=== PATIENT | female | born 1935 | race Caucasian/White ===

== ENCOUNTER 2019-04-18 00:18 | Emergency (ER) | payer MEDICARE, BC ==
[~2019-04-18] VITALS: Ht 165.1 cm; Wt 81.8 kg
[2019-04-18 00:20] VITALS: Ht 165.1 cm; Wt 81.8 kg
[2019-04-18] MEDS ORDERED: LIPITOR40 MG PO (00:30)
[2019-04-18] MEDS ORDERED: LASIX40 MG PO (00:31)
[2019-04-18] MEDS ORDERED: PROZAC20 MG PO (00:31)
[2019-04-18] MEDS ORDERED: GLUCOTROL 5 MG T5 MG PO (00:32)
[2019-04-18] MEDS ORDERED: FUROSEMIDE20 MG PO (00:32)
[2019-04-18] MEDS ORDERED: ISOSORBIDE MONO30 M1 PO (00:32)
[2019-04-18] MEDS ORDERED: SINGULAIR10 MG PO (00:33)
[2019-04-18] MEDS ORDERED: LEVO-T88 MCG PO (00:33)
[2019-04-18] MEDS ORDERED: FLOMAX0.4 MG PO (00:33)
[2019-04-18] MEDS ORDERED: K-TAB10 MEQ PO (00:34)
[2019-04-18] MEDS ORDERED: COUMADIN6 MG (00:34)
[2019-04-18] MEDS ORDERED: PROTONIX40 MG PO (00:34)
[2019-04-18] MEDS ORDERED: GABAPENTIN100 MG PO (00:35)
[2019-04-18 00:59] LABS: HEMATOCRIT 34.7 % (36.0-48.0); LYMPHOCYTES 30.4 % (15-50); MCH 31.6 pg (26.0-34.0); MCHC 34.6 g/dL (31.0-37.0); MCV 91.3 fL (80.0-100.0); MEAN PLATELET VOLUME 9.9 fL (7.4-10.4); NEUTROPHILS 60.4 % (40-80); PLATELET COUNT 183 10x3/uL (130-400); RDW 12.8 % (11.5-14.5); WBC 3.9 10x3/uL (4.8-10.8)
[2019-04-18 01:08] LABS: ALBUMIN 3.5 g/dL (3.4-5.0); ANION GAP 13.1 mmol/L (8-16); BILIRUBIN - TOTAL 0.54 mg/dL (0.2-1.3); CALCIUM 8.8 mg/dL (8.5-10.1); CARBON DIOXIDE 31.5 mmol/L (21.0-32.0); CREATININE - SERUM 0.8 mg/dL (0.6-1.3); POTASSIUM - SERUM 3.6 mmol/L (3.5-5.1); PROTEIN - SERUM 6.8 g/dL (6.4-8.2)
[2019-04-18 01:14] LABS: APPEARANCE HAZY (CLEAR); BILIRUBIN NEGATIVE (NEGATIVE); COLOR YELLOW (YELLOW); GLUCOSE NEGATIVE (NEGATIVE); KETONE NEGATIVE (NEGATIVE); NITRITE POSITIVE (NEGATIVE); PROTEIN NEGATIVE (NEGATIVE); SPECIFIC GRAVITY 1.015 (1.005-1.020)
[2019-04-18 01:17] LABS: INR 2.16 (0.85-1.17); PROTIME 23.4 SECONDS (11.6-15.0)
[2019-04-18 01:21] LABS: BACTERIA MANY /hpf (NONE SEEN); EPITHELIAL CELLS 0-5 /hpf (0-5); RED CELLS - URINE RARE /hpf (0-5)
[2019-04-18] MEDS ORDERED: CIPRO500 MG PO (01:44)
[2019-04-18 02:31] VITALS: BP 137/50
== END 2019-04-18 02:30 | disposition home or self-care (01) ==
LOC: D.ER 00:18
PROVIDERS: Family Medicine
DX: N39.0 Urinary tract infection, site not specified (principal); S00.93XA Contusion of unspecified part of head, initial encounter; W06.XXXA Fall from bed, initial encounter; Y93.89 Activity, other specified; Y92.092 Bedroom in other non-institutional residence as the place of occurrence of the external cause

== ENCOUNTER 2019-08-30 16:56 | Inpatient (IN) | payer MEDICARE, BC ==
[~2019-08-30] VITALS: Ht 165.1 cm; Wt 74.8 kg
[~2019-08-30 16:56] MED LIST: CIPRO500 MG PO; COUMADIN6 MG; FLOMAX0.4 MG PO; FUROSEMIDE20 MG PO; GABAPENTIN100 MG PO; GLUCOTROL 5 MG T5 MG PO; ISOSORBIDE MONO30 M1 PO; K-TAB10 MEQ PO; LASIX40 MG PO; LEVO-T88 MCG PO; LIPITOR40 MG PO; PROTONIX40 MG PO; PROZAC20 MG PO; SINGULAIR10 MG PO
--- NOTE | 2019-08-30 18:31 | NUR ---
PT'S FAMILY HAS BECOME INCREASINGLY AGITATED SINCE THEY ARRIVED TO ED. PT'S FAMILY AT THE BEDSIDE WHEN TREATING PROVIDER RELAYED THAT PT WOULD LIKELY BE DISCHARGED. PT'S FAMILY NOW DEMANDING THAT PT BE ADMITTED THEY DO NOT WANT HER TO RETURN TO THE ASSISTED LIVING FACILITY WHERE SHE LIVES. PT DISPLEASED THAT SHE WAS GIVEN PO PAIN MEDICATION INSTEAD OF IV PAIN MEDICATION. FAMILY PRESENT AT BEDSIDE INSISTED THAT PT NOT BE GIVEN IV PAIN MEDICATION WHEN OFFERED BY THIS NURSE AND TREATING PROVIDER.
[2019-08-30 18:52] VITALS: BP 162/80
--- NOTE | 2019-08-30 19:02 | NUR ---
HAND OFF REPORT GIVEN TO ADDIS DAILY
[2019-08-30 19:39] VITALS: BP 168/76
[2019-08-30 20:32] VITALS: BP 163/73
--- NOTE | 2019-08-30 22:00 | NUR ---
PT ARRIVED TO THE FLOOR ALERT AND ORIENTED. PT STATES A LOT OF PAIN. WILL CALL TECHNICIAN AUTOMATED EQUIPMENT DR. YOUNGER SITE RT FA DRESSING CLEAN DRY AND INTACT. NO SIGNS OF INFECTION. LUNG SOUNDS CLEAR. BOWEL SOUNDS PRESENT. PT STATES SHE IS BLIND. HARD OF HEARING. NO LOWER LEG SWELLING PRESENT. WILL CONTINUE PLAN OF CARE. CALL LIGHT IN REACH. BED LOWERED AND LOCKED. BED RAILS UPX2. PHILIPPE ALARM ON.
[2019-08-30] MEDS ORDERED: BAYER CHEWABLE81 MG PO (22:55)
[2019-08-30] MEDS ORDERED: COLACE100 MG PO (22:56)
[2019-08-30] MEDS ORDERED: PROZAC40 MG PO (22:57)
[2019-08-30] MEDS ORDERED: GABAPENTIN100 MG PO (22:59)
[2019-08-30] MEDS ORDERED: SYNTHROID75 MCG PO (23:02)
[2019-08-30] MEDS ORDERED: VITAMIN D31000 UNIT PO (23:04)
[2019-08-30] MEDS ORDERED: MIRALAX17 GM PO (23:05)
[2019-08-30] MEDS ORDERED: CARAFATE1 G PO (23:06)
[2019-08-30 23:11] VITALS: BP 172/72; BMI 27.5
--- NOTE | 2019-08-31 04:14 | NUR ---
I have reviewed this patient and I concur with the Shift Assessment completed by the Licensed Practical Nurse today this shift.
[2019-08-31 05:06] VITALS: BP 129/65
[2019-08-31 06:36] LABS: BASOPHILS 0 % (0-2); EOSINOPHILS 0.3 % (0-7); HEMATOCRIT 31.5 % (36.0-48.0); HEMOGLOBIN 10.5 g/dL (12-16); IMMATURE GRANULOCYTES 7.1 % (0-5); LYMPHOCYTES 9.5 % (15-50); MCH 30.9 pg (26.0-34.0); MCHC 33.3 g/dL (31.0-37.0); MCV 92.6 fL (80.0-100.0); MEAN PLATELET VOLUME 10.5 fL (7.4-10.4); MONOCYTES 8.5 % (2-11); NEUTROPHILS 74.6 % (40-80); PLATELET COUNT 182 10x3/uL (130-400); RDW 12.6 % (11.5-14.5); WBC 6.6 10x3/uL (4.8-10.8)
[2019-08-31 06:45] LABS: APTT 27.6 SECONDS (22.8-39.4); INR 1.08 (0.85-1.17); PROTIME 13.5 SECONDS (11.6-15.0)
[2019-08-31 07:01] LABS: ANION GAP 11.5 mmol/L (8-16); BILIRUBIN - TOTAL 0.44 mg/dL (0.2-1.3); CALCIUM 8.4 mg/dL (8.5-10.1); CARBON DIOXIDE 30.7 mmol/L (21.0-32.0); CREATININE - SERUM 0.8 mg/dL (0.6-1.3); MAGNESIUM - SERUM 1.4 mg/dL (1.8-2.4); PHOSPHOROUS 3.2 mg/dL (2.5-4.9); POTASSIUM - SERUM 3.2 mmol/L (3.5-5.1); PROTEIN - SERUM 6.2 g/dL (6.4-8.2)
[2019-08-31 07:53] VITALS: BP 132/62
--- NOTE | 2019-08-31 07:57 | NUR ---
PT RESTING IN BED. AAOX4. "LEGALLY BLIND" ICE TO L ARM. NO S/S OF ACUTE DISTRESS. CL IN PLACE DENIES ANY NEEDS.
--- NOTE | 2019-08-31 12:04 | NUR ---
PT CO OF NUMB/TINGLING TO LUE. PT ABLE TO MOVE FINGER. GOOD RADIAL PULSE. "I FEEL PRESSURE BUT NO FEELING" MOANS WHEN MOVED. CALLED DR LOZANO. TO FOR AP LATERAL CERVICAL SPINE AND AP LATERAL L ELBOW STAT.
[2019-08-31 12:23] VITALS: BP 97/55
[2019-08-31 13:30] LABS: APPEARANCE CLEAR (CLEAR); BILIRUBIN NEGATIVE (NEGATIVE); COLOR YELLOW (YELLOW); GLUCOSE 100 mg/dL (NEGATIVE); KETONE NEGATIVE (NEGATIVE); NITRITE NEGATIVE (NEGATIVE); PROTEIN NEGATIVE (NEGATIVE); SPECIFIC GRAVITY 1.015 (1.005-1.020); UROBILINOGEN NORMAL (NORMAL)
[2019-08-31 14:46] VITALS: Ht 165.1 cm; Wt 74.8 kg
--- NOTE | 2019-08-31 15:00 | NUR ---
Rehab Note- Acute Inpatient Rehab prescreen order received. The patient has pending tests and a NeuroSurgeon consult pending- will need to be done prior to acute inpatient rehab admit. The patient is a good inpatient acute rehab candisite when medically stable and ready for discharge from the acute hospital. Spoke with MAX Olivo. Will continue to follow at this time. Thank you for this referral! Evon Calvert RN Clinical Liaison, [facility] Rehab
[2019-08-31 17:01] VITALS: BP 111/57
--- NOTE | 2019-08-31 19:00 | NUR ---
BEDSIDE REPORT RECEIVED AND CARE OF PT ASSUMED. PT LYING IN MID BLAKELY'S POSITION WITH EYES CLOSED. LEFT ARM IN IMMOBILIZER. IV TO RIGHT FA PATENT WITH NS INFUSING AT 50 ML/HR. PREWICK EXTERNAL CATHETER IN USE. WILL MONITOR FOR NEEDS.
[2019-08-31 20:00] VITALS: BP 105/50
--- NOTE | 2019-08-31 20:42 | NUR ---
HS MEDICATIONS GIVEN. FSBS 175 REQUIRING COVERAGE WITH 2 UNITS OF INSULIN PER SLIDING SCALE. WILL CONTINUE TO MONITOR FOR NEEDS.
--- NOTE | 2019-08-31 23:21 | NUR ---
GAVE 2 ICE [address]ACKS PER REQUEST TO PL[address] AROUND LEFT SHOULDER AND UPPER ARM FOR PAIN.
[2019-09-01] VITALS: BP 132/63
[2019-09-01 04:00] VITALS: BP 137/57
[2019-09-01 06:00] LABS: BASOPHILS 0 % (0-2); EOSINOPHILS 0.5 % (0-7); HEMATOCRIT 30.5 % (36.0-48.0); HEMOGLOBIN 9.9 g/dL (12-16); IMMATURE GRANULOCYTES 5.6 % (0-5); MCH 30.6 pg (26.0-34.0); MCHC 32.5 g/dL (31.0-37.0); MCV 94.1 fL (80.0-100.0); MEAN PLATELET VOLUME 10.3 fL (7.4-10.4); MONOCYTES 11.1 % (2-11); NEUTROPHILS 59.8 % (40-80); PLATELET COUNT 152 10x3/uL (130-400); RBC 3.24 10x6/uL (4.00-5.40)
[2019-09-01 06:27] LABS: ALKALINE PHOSPHATASE 109 U/L (46-116); ALT (SGPT) 15 U/L (10-68); BILIRUBIN - TOTAL 0.51 mg/dL (0.2-1.3); CALCIUM 8.4 mg/dL (8.5-10.1); CARBON DIOXIDE 29.3 mmol/L (21.0-32.0); CHLORIDE - SERUM 105 mmol/L (98-107); CREATININE - SERUM 0.6 mg/dL (0.6-1.3); MAGNESIUM - SERUM 1.7 mg/dL (1.8-2.4); PHOSPHOROUS 3.6 mg/dL (2.5-4.9); PROTEIN - SERUM 5.8 g/dL (6.4-8.2); SODIUM 142 mmol/L (136-145); UREA NITROGEN 15 mg/dL (7-18); eGFR NON AFRICAN AMERICAN > 90 mL/min (90-120)
[2019-09-01 06:28] LABS: CALC OSMOLALITY 283 mosm/kg (275-300); GLUCOSE 100 mg/dL (74-106); POTASSIUM - SERUM 4.2 mmol/L (3.5-5.1)
[2019-09-01 07:08] LABS: INR 1.43 (0.85-1.17); PROTIME 16.9 SECONDS (11.6-15.0)
--- NOTE | 2019-09-01 07:26 | NUR ---
BEDSIDE REPORT RECIEVED. ASSUMED CARE. PATIENT IN BED WITH IV INTACT. SHOULDER IMMOBILIZER ON. NO COMPLAINTS OR SIGNS OF DISTRESS. CALL LIGHT WITHIN REACH.
[2019-09-01 08:15] VITALS: BP 144/53
--- NOTE | 2019-09-01 10:52 | NUR ---
PATIENT IN BED WITH IV INTACT. NO COMPLAINTS OR SIGNS OF DISTRESS. EYES CLOSED RESTING QUIETLY. CALL LIGHT WITHIN REACH.
--- NOTE | 2019-09-01 13:08 | NUR ---
PATIENT IN BED WITH IV INTACT. NO COMPLAINTS OR SIGNS OF DISTRESS. ATE 1/2 OF LUNCH TRAY. CALL LIGHT WITHIN REACH.
--- NOTE | 2019-09-01 13:56 | NUR ---
PATIENT COMPLAINING OF PAIN IN ELBOW. STATED SHE FEELS LIKE THERE IS A VICE ON IT AND THAT IS WHAT IT FELT LIKE WHEN HER HAD HIS HEART ATTACK SO SHE IS AFRAID THAT IT IS HER HEART. NOTIFIED EDMOND ESPINO AT THIS TIME. NEW ORDERS RECIEVED. VS BEING TAKEN BY WHIP OPERATOR.
[2019-09-01 13:57] LABS: % SATURATION 21 % (15-55); IRON 46 ug/dl (35-150); TOTAL IRON BIND CAPACITY 216 ug/dl (260-445); UNSAT IRON BIND CAPACITY 170 ug/dl (150-375)
--- NOTE | 2019-09-01 14:22 | NUR ---
PATIENT VS WNL. PATIENT IN BED WITH EYES CLOSED AT THIS TIME RESTING QUIETLY. NO COMPLAINTS OR SIGNS OF DISTRESS. CALL LIGHT WITHIN REACH.
--- NOTE | 2019-09-01 14:42 | NUR ---
CALLED PATIENTS DAUGHTER PER REQUEST AND LET HER KNOW THAT PATIENT WAS IN PAIN AND THINKING SHE WAS HAVING A HEART ATTACK AT THIS TIME. DAUGHTER VERBALIZED UNDERSTANDING. STATED SHE WAS GOING TO BE UP HERE IN A BIT. EXPLAINED TO PATIENT. PATIENT VERBALIZED UNDERSTANDING.
[2019-09-01 15:30] LABS: CREATINE KINASE 63 UL (21-215)
[2019-09-01 15:31] LABS: TROPONIN-I < 0.017 ng/mL (0.000-0.060)
[2019-09-01 16:05] VITALS: BP 104/56
--- NOTE | 2019-09-01 16:06 | NUR ---
OT NOTE: PT COMPLETED LUE FINGER FLEXION AND OPPOSITION. THANK YOU,PARISH GUIDRY
--- NOTE | 2019-09-01 16:30 | NUR ---
PATIENT IN BED WITH IV INTACT. NO COMPLAINTS OR SIGNS OF DISTRESS. FAMILY AT BEDSIDE. CALL LIGHT WITHIN REACH.
--- NOTE | 2019-09-01 18:10 | NUR ---
PATIENT IN BED WITH EYES CLOSED RESTING QUIETLY. IV INTACT. NO COMPLAINTS, CALL LIGHT WITHIN REACH.
--- NOTE | 2019-09-01 18:26 | NUR ---
ASSISTED PATIENT TO BR AND BACK TO BED. HAD BM. NO COMPLAINTS AT THIS TIME IV INTACT. CALL LIGHT WITHIN REACH. BSCDS ON AND WORKING.
--- NOTE | 2019-09-01 19:00 | NUR ---
BEDSIDE REPORT RECEIVED AND CARE OF PT ASSUMED. PT UPSET THAT MD DID NOT TELL HER THAT HE DIDN'T WANT HER TO WEAR IMMOBILIZER ON LEFT ARM ANY LONGER. IV TO RIGHT WRIST PATENT WITH NS INFUSING AT 50 ML/HR. PUREWICK EXTERNAL CATHETER IN USE. WILL MONITOR FOR NEEDS.
--- NOTE | 2019-09-01 19:15 | NUR ---
REPOSITIONED PT FOR COMFORT; NORCO GIVEN FOR PAIN, AND ICE PACK PLACED ON LEFT ARM.
[2019-09-01 20:00] VITALS: BP 148/64
[2019-09-01 20:00] LABS: CKMB 0.7 U/L (0.0-3.6); CREATINE KINASE 64 UL (21-215)
[2019-09-01 20:01] LABS: TROPONIN-I < 0.017 ng/mL (0.000-0.060)
--- NOTE | 2019-09-01 20:56 | NUR ---
HS MEDICATIONS GIVEN. FSBS 151 THIS CHECK REQUIRING NO COVERAGE PER SLIDING SCALE.
--- NOTE | 2019-09-01 23:14 | NUR ---
PT BATHED AND ALL LINENS AND GOWN CHANGED. NEW PUREWICK EXTERNAL CATHETER PLACE. PT POSITIONED FOR COMFORT AND NEW ICE PACK PLACED ON LEFT UPPER ARM.
[2019-09-02] VITALS: BP 151/74
[2019-09-02 04:00] VITALS: BP 148/67
[2019-09-02 06:15] LABS: BASOPHILS 0 % (0-2); EOSINOPHILS 0.2 % (0-7); HEMOGLOBIN 9.8 g/dL (12-16); IMMATURE GRANULOCYTES 9.3 % (0-5); LYMPHOCYTES 19.8 % (15-50); MCH 30.8 pg (26.0-34.0); MCHC 32.7 g/dL (31.0-37.0); MCV 94.3 fL (80.0-100.0); MEAN PLATELET VOLUME 10.3 fL (7.4-10.4); MONOCYTES 11.7 % (2-11); PLATELET COUNT 161 10x3/uL (130-400); RBC 3.18 10x6/uL (4.00-5.40); RDW 12.6 % (11.5-14.5); WBC 4.1 10x3/uL (4.8-10.8)
[2019-09-02 06:33] LABS: INR 1.59 (0.85-1.17); PROTIME 18.4 SECONDS (11.6-15.0)
[2019-09-02 06:41] LABS: ALBUMIN 2.8 g/dL (3.4-5.0); ALKALINE PHOSPHATASE 103 U/L (46-116); ALT (SGPT) 12 U/L (10-68); BILIRUBIN - TOTAL 0.65 mg/dL (0.2-1.3); CALC OSMOLALITY 278 mosm/kg (275-300); CALCIUM 8.5 mg/dL (8.5-10.1); CARBON DIOXIDE 31.1 mmol/L (21.0-32.0); CHLORIDE - SERUM 103 mmol/L (98-107); CKMB 0.8 U/L (0.0-3.6); CREATINE KINASE 61 UL (21-215); CREATININE - SERUM 0.7 mg/dL (0.6-1.3); GLUCOSE 119 mg/dL (74-106); MAGNESIUM - SERUM 1.7 mg/dL (1.8-2.4); PHOSPHOROUS 3.5 mg/dL (2.5-4.9); POTASSIUM - SERUM 3.9 mmol/L (3.5-5.1); PROTEIN - SERUM 5.9 g/dL (6.4-8.2); SODIUM 139 mmol/L (136-145); UREA NITROGEN 12 mg/dL (7-18); eGFR NON AFRICAN AMERICAN 84 mL/min (90-120)
[2019-09-02 06:42] LABS: TROPONIN-I < 0.017 ng/mL (0.000-0.060)
--- NOTE | 2019-09-02 08:00 | NUR ---
ASSESSMENT PER FLOW SHEET. PT IS WITHOUT DISTRESS.FALL PREVENTION IN PLACE WITH PHILIPPE MAT.DOOR OPEN TO MONITOR.
[2019-09-02 09:18] VITALS: BP 127/64
[2019-09-02 13:33] VITALS: BP 108/45
[2019-09-02 18:07] VITALS: BP 131/65
--- NOTE | 2019-09-02 18:22 | NUR ---
IV MORE TENDER,DCD WITH CATH TIP INTACT.PT DECLINES IV,SAYS SHE DOESNT NEED IT. PT WITHOUT CHANGE.CONT PLAN OF CARE
--- NOTE | 2019-09-02 19:00 | NUR ---
BEDSIDE REPORT RECEIVED AND CARE OF PT ASSUMED. PT LYING IN MID BLAKELY'S POSITION WITH EYES CLOSED. LEFT ARM IN SLING. PUREWICK EXTERNAL CATHETER IN USE. WILL MONITOR FOR NEEDS.
--- NOTE | 2019-09-02 20:45 | NUR ---
HS MEDICATIONS GIVEN TO INCLUDE NORCO FOR PAIN. FSBS 145 THIS CHECK REQUIRING NO COVERAGE PER SLIDING SCALE.
[2019-09-02 21:04] VITALS: BP 119/62
--- NOTE | 2019-09-02 21:45 | NUR ---
RE-POSITIONED PT AND ADJUSTED SLING FOR COMFORT.
[2019-09-03 04:15] VITALS: BP 144/55
[2019-09-03 05:24] LABS: BASOPHILS 0 % (0-2); EOSINOPHILS 0.3 % (0-7); HEMATOCRIT 30.1 % (36.0-48.0); HEMOGLOBIN 9.9 g/dL (12-16); IMMATURE GRANULOCYTES 4.3 % (0-5); LYMPHOCYTES 23.9 % (15-50); MCH 30.7 pg (26.0-34.0); MCHC 32.9 g/dL (31.0-37.0); MCV 93.5 fL (80.0-100.0); MEAN PLATELET VOLUME 9.9 fL (7.4-10.4); MONOCYTES 11.4 % (2-11); NEUTROPHILS 60.1 % (40-80); PLATELET COUNT 162 10x3/uL (130-400); RBC 3.22 10x6/uL (4.00-5.40); RDW 12.6 % (11.5-14.5); WBC 3.5 10x3/uL (4.8-10.8)
[2019-09-03 05:34] LABS: INR 1.69 (0.85-1.17); PROTIME 19.3 SECONDS (11.6-15.0)
[2019-09-03 05:46] LABS: ALBUMIN 2.8 g/dL (3.4-5.0); ALKALINE PHOSPHATASE 101 U/L (46-116); ALT (SGPT) 11 U/L (10-68); BILIRUBIN - TOTAL 0.67 mg/dL (0.2-1.3); CALC OSMOLALITY 278 mosm/kg (275-300); CALCIUM 8.7 mg/dL (8.5-10.1); CARBON DIOXIDE 32.5 mmol/L (21.0-32.0); CHLORIDE - SERUM 102 mmol/L (98-107); CREATININE - SERUM 0.6 mg/dL (0.6-1.3); GLUCOSE 112 mg/dL (74-106); MAGNESIUM - SERUM 1.9 mg/dL (1.8-2.4); PHOSPHOROUS 3.7 mg/dL (2.5-4.9); PROTEIN - SERUM 5.9 g/dL (6.4-8.2); SODIUM 139 mmol/L (136-145); UREA NITROGEN 12 mg/dL (7-18); eGFR NON AFRICAN AMERICAN > 90 mL/min (90-120)
[2019-09-03 08:54] VITALS: BP 139/62
--- NOTE | 2019-09-03 09:30 | NUR ---
PATIENT ASSISTED TO BATHROOM BY TIM LYNN CNA. HIT THE NOZZLE ON THE TOILET WITH THE FLAT PART OF HER SHOULDER BLADE. SLIGHT RED ROMARIO. WILL CONTINUE TO MONITOR FOR A HEMATOMA. NOTABLE BRUISING ON BACK OF LEFT ARM DUE TO FALL. CL IN REACH. WCTM
[2019-09-03 13:13] VITALS: BP 117/52
--- NOTE | 2019-09-03 15:19 | NUR ---
PATIENT LAYING DOWN FOR A NAP. ICE PACK GIVEN. TUCKED IN THE COVERS LIKE SHE WANTED. CL IN REACH. WCTM
[2019-09-03 16:36] VITALS: BP 98/57
--- NOTE | 2019-09-03 19:00 | NUR ---
BEDSIDE REPORT RECEIVED AND CARE OF PT ASSUMED. PT LYING IN MID BLAKELY'S POSITION. ASSESSED A SMALLL BRUISE ON LEFT SHOULDER BLADE AREA THAT IS NEW FROM FALL TODAY IN BATHROOM. OTHER BRUISING ON SHOULDER UNCHANGED. WILL MONITOR FOR NEEDS.
--- NOTE | 2019-09-03 20:56 | NUR ---
HS MEDICATIONS GIVEN. FSBS 130 THIS CHECK REQUIRING NO COVERAGE PER SLIDING SCALE. WILL CONTINUE TO MONITOR FOR NEEDS.
[2019-09-04 05:08] VITALS: BP 125/53
[2019-09-04 06:07] LABS: INR 1.78 (0.85-1.17); PROTIME 20.1 SECONDS (11.6-15.0)
[2019-09-04 06:09] LABS: ALBUMIN 2.8 g/dL (3.4-5.0); ALKALINE PHOSPHATASE 99 U/L (46-116); ALT (SGPT) 10 U/L (10-68); BILIRUBIN - TOTAL 0.66 mg/dL (0.2-1.3); CALC OSMOLALITY 277 mosm/kg (275-300); CALCIUM 8.8 mg/dL (8.5-10.1); CHLORIDE - SERUM 101 mmol/L (98-107); CREATININE - SERUM 0.7 mg/dL (0.6-1.3); GLUCOSE 103 mg/dL (74-106); MAGNESIUM - SERUM 1.6 mg/dL (1.8-2.4); PHOSPHOROUS 4.1 mg/dL (2.5-4.9); POTASSIUM - SERUM 3.4 mmol/L (3.5-5.1); PROTEIN - SERUM 5.9 g/dL (6.4-8.2); SODIUM 140 mmol/L (136-145); UREA NITROGEN 11 mg/dL (7-18); eGFR NON AFRICAN AMERICAN 84 mL/min (90-120)
[2019-09-04 06:13] LABS: BASOPHILS 0.3 % (0-2); EOSINOPHILS 0.5 % (0-7); HEMATOCRIT 29.9 % (36.0-48.0); HEMOGLOBIN 9.8 g/dL (12-16); IMMATURE GRANULOCYTES 7.9 % (0-5); LYMPHOCYTES 19.6 % (15-50); MCH 30.4 pg (26.0-34.0); MCHC 32.8 g/dL (31.0-37.0); MCV 92.9 fL (80.0-100.0); MONOCYTES 12.6 % (2-11); NEUTROPHILS 59.1 % (40-80); PLATELET COUNT 178 10x3/uL (130-400); RBC 3.22 10x6/uL (4.00-5.40); RDW 12.7 % (11.5-14.5); WBC 3.8 10x3/uL (4.8-10.8)
--- NOTE | 2019-09-04 06:44 | NUR ---
POTASSIUM LEVEL 3.4 THIS AM REQUIRING COVERAGE WITH 40 MEQ K DUR PER THE ELECTROLYTE PROTOCOL. WILL RE-CHECK IN 4 HOURS. MAG LEVEL 1.6 THIS AM REQUIRING COVERAGE WITH 400 MG PO Q4 HRS X2. FIRST DOSE GIVEN...WILL PASS ALONG IN REPORT.
--- NOTE | 2019-09-04 07:15 | NUR ---
PT RESTING IN BED WITH EYES CLOSED. OPENS EYES SPONTANEOUSLY STAFF ENTERS ROOM. RESP EVEN AND UNLABORED. O2 @ 2L NC IN PLACE. REPORTS PAIN 3/10 AT THIS TIME. PT DENIES FURTHER NEEDS AT THIS TIME. CL WITHIN REACH. ENCOURAGED TO CALL WITH NEEDS. CONTINUE POC
[2019-09-04 08:24] VITALS: BP 149/65
[2019-09-04] MEDS ORDERED: COUMADIN6 MG PO (10:31)
[2019-09-04] MEDS ORDERED: COUMADIN3 MG PO (10:31)
[2019-09-04] MEDS ORDERED: LASIX40 MG PO (10:32)
[2019-09-04] MEDS ORDERED: FUROSEMIDE20 MG PO (10:32)
[2019-09-04] MEDS ORDERED: HYDROCODON-ACE1 EAC7 PO (10:32)
[2019-09-04] MEDS ORDERED: HUMULIN R100 U/ML SC (10:33)
--- NOTE | 2019-09-04 11:13 | MORECARE ---
CASE MANAGEMENT DISCHARGE SUMMARY PATIENT: EMMETT OLIVIA UNIT: [id number] ADM DATE: 08/31/19 AGE: 84 : 35 SEX: F ROOM/BED: D.2214 AUTHOR: JO BARKER PHYSICIAN: REFERRING PHYSICIAN: MADELIN MARQUEZ MD DATE OF SERVICE: 09/04/19 Discharge Plan Patient Name: EMMETT OLIVIA [facility] [facility] 1935 Planned Disposition: Inpatient Rehab Anticipated Discharge Date: Discharge Date: Expected LOS: Initial Reviewer: [id number] Initial Review Date: 08/30/2019 Generated: 09/04/19 12:13 pm Coverage Notice Reviewer: [id number] Jake Butler Notice Issued Date-Time: 08/30/2019 20:01 Notice Type: Medicare Outpatient Observation Notice Notice Delivered To: Family Member Relationship to Patient: Daughter [employer] Research Associate Name: Anjana Hilton Delivery Method: HAND - Hand Delivered Katerina Days: Prior Verbal Notification: Recipient Understood Notice: Yes Recipient Signature: Med Rec Note Co-signed by Attending: Coverage Notice Comment: MAGAÑA delivered to patient/family, signed by daughter Reviewer: [id number] Jake Beasley Notice Issued Date-Time: 09/04/2019 11:00 Notice Type: IM Discharge Notice Notice Delivered To: Patient Relationship to Patient: [employer]x Research Associate Name: Delivery Method: HAND - Hand Delivered Katerina Days: Prior Verbal Notification: Recipient Understood Notice: Yes Recipient Signature: Yes Med Rec Note Co-signed by Attending: Coverage Notice Comment: Patient Name: EMMETT OLIVIA Page [phone] at 1113 All edits/amendments must be made on the electronic document DICTATION DATE: 09/04/19 1113 DIRECTOR SAFETY COUNCIL: DUONG 09/04/19 1113 RPT#: [id number] DC DATE: STATUS: ADM IN [facility] [address] [place] [address] END OF REPORT
--- NOTE | 2019-09-04 11:21 | MORECARE ---
CASE MANAGEMENT DISCHARGE SUMMARY PATIENT: EMMETT OLIVIA UNIT: [id number] ADM DATE: 08/31/19 AGE: 84 : 35 SEX: F ROOM/BED: D.2214 AUTHOR: MJ,DOC PHYSICIAN: REFERRING PHYSICIAN: MADELIN MARQUEZ MD DATE OF SERVICE: 09/04/19 Discharge Plan Patient Name: EMMETT OLIVIA [facility] : 1935 Planned Disposition: Inpatient Rehab Anticipated Discharge Date: Discharge Date: Expected LOS: Initial Reviewer: [email or web address] Initial Review Date: 08/30/2019 Generated: 09/04/19 12:21 pm Comments DCP- Discharge Planning Updated by [email or web address]: Vashti Beasley on 09/04/19 10:[address] Patient Name: EMMETT OLIVIA Admission Status: ER Accout number: [id number] Admission Date: 08-31-2019 : 1935 Admission Diagnosis: Attending: MADELIN MARQUEZ Current LOS: 4 Anticipated DC Date: Planned Disposition: Inpatient Rehab Primary Insurance: MEDICARE A & B Discharge Planning Comments: CM met with patient to complete initial dc planning assessment. CM educated patient on the CM role and verbal consent given by patient to complete assessment. Patient lives at [facility] where she is partially dependent with her care. At discharge patient plans to go to inpatient rehab and feels this is a safe discharge. She stated that [facility] will help her with whatever she needs help with. She has a walker and wheelchair that she uses there. [facility] served and explained. I called her daughter Anjana to let her know about discharge. Patient denied known discharge needs at this time. CM will continue to follow and will assist as needed with dc plans/needs. Senior Lead Project Manager: Vashti Beasley DCPIA - Discharge Planning Initial Assessment Updated by [id number]: Vashti Beasley on 09/04/19 11:16 am * Is the patient Alert and Oriented? Yes * How many steps to enter\exit or inside your home? * PCP [facility] * Pharmacy [facility] * Preadmission Environment Assisted Living * Facility Name [facility] * ADLs Partial Dependent * Partial ADLs (Assistance needed) Dressing Medication Management Toileting * Equipment Rolling Walker Walker Wheelchair * List name and contact numbers for known caregivers / representatives who currently or will assist patient after discharge: ANJANA (DAUGHTER)[phone] * Verbal permission to speak to the caregivers and representatives has been obtained from the patient. N/A * Community resources currently utilized Assisted Living * Please name any agencies selected above. [facility] * Additional services required to return to the preadmission environment? Yes * Can the patient safely return to the preadmission environment? Yes * Has this patient been hospitalized within the prior 30 days at any hospital? No Coverage Notice Reviewer: [id number] Jake Butler Notice Issued Date-Time: 08/30/2019 20:01 Notice Type: Medicare Outpatient Observation Notice Notice Delivered To: Family Member Relationship to Patient: Daughter Ultimate Hoops Referee Name: Anjana Hilton Delivery Method: HAND - Hand Delivered Katerina Days: Prior Verbal Notification: Recipient Understood Notice: Yes Recipient Signature: Med Rec Note Co-signed by Attending: Coverage Notice Comment: MAGAÑA delivered to patient/family, signed by daughter Reviewer: [id number] Jake Beasley Notice Issued Date-Time: 09/04/2019 11:00 Notice Type: IM Discharge Notice Notice Delivered To: Patient Relationship to Patient: Ultimate Hoops Referee Name: Delivery Method: HAND - Hand Delivered Katerina Days: Prior Verbal Notification: Recipient Understood Notice: Yes Recipient Signature: Yes Med Rec Note Co-signed by Attending: Coverage Notice Comment: Last DP export: 09/04/19 10:13 Patient Name: EMMETT OLIVIA Page [phone] at 1121 All edits/amendments must be made on the electronic document DICTATION DATE: 09/04/19 112 HAND PICKER: DUONG 09/04/19 112 RPT#: [id number] DC DATE: STATUS: ADM IN [facility] [address] [place] [address] END OF REPORT
[2019-09-04 16:07] VITALS: BP 107/49
--- NOTE | 2019-09-04 17:13 | NUR ---
OT NOTE: PT COMPLETED BED MOB WITH MIN A. PT COMPLETED ADL MOB WITH MIN A. PT COMPLETED HAND/FACE HYGIENE WITH SET UP. PT REQUIRED MAX A FOR LUE SLING ADJUSTMENT. THANK YOU, PARISH GUIDRY
--- NOTE | 2019-09-05 14:03 | MORECARE ---
CASE MANAGEMENT DISCHARGE SUMMARY PATIENT: EMMETT OLIVIA UNIT: [id number] ADM DATE: 08/31/19 AGE: 84 : 35 SEX: F ROOM/BED: D.2214 AUTHOR: MJDOC PHYSICIAN: REFERRING PHYSICIAN: MADELIN MARQUEZ MD DATE OF SERVICE: 09/05/19 Discharge Plan Patient Name: EMMETT OLIVIA [facility]:[place] : 1935 Planned Disposition: Inpatient Rehab Anticipated Discharge Date: Discharge Date: 09/04/2019 Expected LOS: 0 Initial Reviewer: [email or web address] Initial Review Date: 08/30/2019 Generated: 09/05/19 3:03 pm Comments DCP- Discharge Planning Updated by [email or web address]: Vashti Beasley on 09/04/19 10:[address] Patient Name: EMMETT OLIVIA Admission Status: ER Accout number: [id number] Admission Date: 08-31-2019 : 1935 Admission Diagnosis: Attending: MADELIN MARQUEZ Current LOS: 4 Anticipated DC Date: Planned Disposition: Inpatient Rehab Primary Insurance: MEDICARE A & B Discharge Planning Comments: CM met with patient to complete initial dc planning assessment. CM educated patient on the CM role and verbal consent given by patient to complete assessment. Patient lives at [facility] where she is partially dependent with her care. At discharge patient plans to go to inpatient rehab and feels this is a safe discharge. She stated that [facility] will help her with whatever she needs help with. She has a walker and wheelchair that she uses there. [facility] served and explained. I called her daughter Anjana to let her know about discharge. Patient denied known discharge needs at this time. CM will continue to follow and will assist as needed with dc plans/needs. Airworthiness Safety Inspector: Vashti Beasley DCPIA - Discharge Planning Initial Assessment Updated by [id number]: Vashti Beasley on 09/04/19 11:16 am * Is the patient Alert and Oriented? Yes * How many steps to enter\exit or inside your home? * PCP [facility] * Pharmacy [facility] * Preadmission Environment Assisted Living * Facility Name [facility] * ADLs Partial Dependent * Partial ADLs (Assistance needed) Dressing Medication Management Toileting * Equipment Rolling Walker Walker Wheelchair * List name and contact numbers for known caregivers / representatives who currently or will assist patient after discharge: ANJANA (DAUGHTER)[phone] * Verbal permission to speak to the caregivers and representatives has been obtained from the patient. N/A * Community resources currently utilized Assisted Living * Please name any agencies selected above. [facility] * Additional services required to return to the preadmission environment? Yes * Can the patient safely return to the preadmission environment? Yes * Has this patient been hospitalized within the prior 30 days at any hospital? No Coverage Notice Reviewer: [id number] Jake Butler Notice Issued Date-Time: 08/30/2019 20:01 Notice Type: Medicare Outpatient Observation Notice Notice Delivered To: Family Member Relationship to Patient: Daughter Yarn Spooler Name: Anjana Hilton Delivery Method: HAND - Hand Delivered Katerina Days: Prior Verbal Notification: Recipient Understood Notice: Yes Recipient Signature: Med Rec Note Co-signed by Attending: Coverage Notice Comment: MAGAÑA delivered to patient/family, signed by daughter Reviewer: [id number] Jake Beasley Notice Issued Date-Time: 09/04/2019 11:00 Notice Type: IM Discharge Notice Notice Delivered To: Patient Relationship to Patient: Yarn Spooler Name: Delivery Method: HAND - Hand Delivered Katerina Days: Prior Verbal Notification: Recipient Understood Notice: Yes Recipient Signature: Yes Med Rec Note Co-signed by Attending: Coverage Notice Comment: Last DP export: 09/04/19 10:21 Patient Name: EMMETT OLIVIA Page [phone] at 1403 All edits/amendments must be made on the electronic document DICTATION DATE: 09/05/19 1403 ANESTHESIOLOGY TECHNOLOGIST: DUONG 09/05/19 1403 RPT#: [id number] DC DATE:09/04/19 STATUS: DIS IN [facility] [address] [place] [address] END OF REPORT
== END 2019-09-04 18:33 | DRG 563 ==
LOC: D.ER 16:56 → D.MS 19:55 → OBSVTIME 19:56 → D.MS 08-31 17:08
PROVIDERS: Family Medicine; ADMIT Internal Medicine Nephrology; ATTEND Internal Medicine Nephrology
DX: S42.212A Unspecified displaced fracture of surgical neck of left humerus, initial encounter for closed fracture (principal); W06.XXXA Fall from bed, initial encounter; I11.0 Hypertensive heart disease with heart failure; I50.9 Heart failure, unspecified; E11.9 Type 2 diabetes mellitus without complications; J44.9 Chronic obstructive pulmonary disease, unspecified; M19.90 Unspecified osteoarthritis, unspecified site; K21.9 Gastro-esophageal reflux disease without esophagitis; F32.9 Major depressive disorder, single episode, unspecified; E87.6 Hypokalemia; E83.42 Hypomagnesemia; M48.54XD Collapsed vertebra, not elsewhere classified, thoracic region, subsequent encounter for fracture with routine healing; D64.9 Anemia, unspecified

== ENCOUNTER 2019-09-04 17:33 | Inpatient (IN) | payer MEDICARE, BC ==
[~2019-09-04] VITALS: Ht 165.1 cm; Wt 63.5 kg
[~2019-09-04 17:33] MED LIST changes: +BAYER CHEWABLE81 MG PO; +CARAFATE1 G PO; +COLACE100 MG PO; +COUMADIN3 MG PO; +COUMADIN6 MG PO; +HUMULIN R100 U/ML SC; +HYDROCODON-ACE1 EAC7 PO; +MIRALAX17 GM PO; +PROZAC40 MG PO; +SYNTHROID75 MCG PO; +VITAMIN D31000 UNIT PO
--- NOTE | 2019-09-04 19:15 | NUR ---
PT RESTING IN BED WITH EYES OPEN. ALERT AND ORIENTED X 3. LEFT ARM SLING IS ON AND INTACT. O2 IS ON @ 2LPM PER NC. NO SOB NOTED. PT IS [place]. NOTED TO BE INC. OF LARGE AMOUNT OF URINE. ASSISTED TO BATHROOM BY RN. TOTAL BED CHANGE DONE. SR'S ARE UP X 2 IN BED. CALL LIGHT AND BEDSIDE TABLE ARE WITHIN EASY REACH. BED ALARM IS ON.
[2019-09-04 20:47] VITALS: BP 108/51
--- NOTE | 2019-09-04 21:16 | NUR ---
PT IS RESTING IN BED WATCHING TV. NO ACUTE DISTRESS NOTED.
--- NOTE | 2019-09-05 01:51 | NUR ---
QUIET HOURS. PT LYING IN BED SUPINE EYES CLOSED RESTING QUIETLY. CONTINUES ON 2L VIA NC. NO SIGNS OF DISTRESS NOTED. CL IN REACH. BED ALARM ON
[2019-09-05 01:54] VITALS: BP 108/51; BMI 23.3
--- NOTE | 2019-09-05 05:33 | NUR ---
PT LYING IN BED SUPINE EYES CLOSED RESTING QUIETLY. RR EVEN AND UNLABORED. CONTINUES ON 2L VIA NC. CL IN REACH
[2019-09-05 07:16] LABS: BASOPHILS 0 % (0-2); EOSINOPHILS 0.7 % (0-7); HEMATOCRIT 31.4 % (36.0-48.0); HEMOGLOBIN 10.4 g/dL (12-16); IMMATURE GRANULOCYTES 4.9 % (0-5); LYMPHOCYTES 24.1 % (15-50); MCH 30.8 pg (26.0-34.0); MCHC 33.1 g/dL (31.0-37.0); MCV 92.9 fL (80.0-100.0); MEAN PLATELET VOLUME 9.9 fL (7.4-10.4); NEUTROPHILS 59.3 % (40-80); PLATELET COUNT 199 10x3/uL (130-400); RBC 3.38 10x6/uL (4.00-5.40); WBC 4.3 10x3/uL (4.8-10.8)
[2019-09-05 07:25] LABS: INR 2.05 (0.85-1.17); PROTIME 22.5 SECONDS (11.6-15.0)
[2019-09-05 07:38] LABS: CALC OSMOLALITY 276 mosm/kg (275-300); CALCIUM 9.2 mg/dL (8.5-10.1); CARBON DIOXIDE 32.9 mmol/L (21.0-32.0); CHLORIDE - SERUM 100 mmol/L (98-107); CREATININE - SERUM 0.7 mg/dL (0.6-1.3); GLUCOSE 106 mg/dL (74-106); POTASSIUM - SERUM 4.1 mmol/L (3.5-5.1); SODIUM 139 mmol/L (136-145); UREA NITROGEN 11 mg/dL (7-18); eGFR NON AFRICAN AMERICAN 84 mL/min (90-120)
--- NOTE | 2019-09-05 08:00 | NUR ---
I have reviewed this patient and I concur with the Shift Assessment completed by the Licensed Practical Nurse today this shift.
[2019-09-05 08:22] VITALS: BP 152/65
--- NOTE | 2019-09-05 11:46 | NUR ---
PT RESTING IN BED WITH EYES OPEN CALL LIGHT IN REACH NO PROBLEMS WILL MONITER
[2019-09-05 13:41] VITALS: Ht 165.1 cm; Wt 63.5 kg
--- NOTE | 2019-09-05 16:29 | NUR ---
PATIENT ADMITTED TO REHAB FROM ACUTE FLOOR. PATIENT LIVES A [facility]. DME AT HOME IS A WALKER AND WHEELCHAIR. SHE SEES [facility] FOR HER PCP. DISCHARGE PLANS ARE FOR HER TO RETURN HOME AT [facility]. WILL CONTINUE TO FOLLOW WITH PATIENT
--- NOTE | 2019-09-05 18:28 | NUR ---
PT RESTING IN BED WITH EYES OPEN CALL LIGHT IN REACH WILL MONITER
--- NOTE | 2019-09-05 20:01 | NUR ---
AWAKE AND ALERT. ASSITED TO BATHROOM AND BACK TO BED. RESPIRATIONS UNLABORED. LEFT ARM SLING IN PLACE. NO ACUTE DISTRESS NOTED. CALL LIGHT IN REACH.
[2019-09-05 20:37] VITALS: BP 112/46
--- NOTE | 2019-09-06 02:13 | NUR ---
SLEEPING WITH RESPIRATIONS UNLABORED. NO DISTERSS NOTED. CALL LIGHT IN REACH.
[2019-09-06 07:20] LABS: INR 2.35 (0.85-1.17)
[2019-09-06 07:49] VITALS: BP 143/61
--- NOTE | 2019-09-06 09:45 | NUR ---
PATIENT IS ALERT/WITH SOME FORGETFULLNESS. BED ALARM ON. CALL LIGHT WITHIN REACH. VOICES NO NEEDS AT THIS TIME. WILL CONTINUE WITH PLAN OF CARE
--- NOTE | 2019-09-06 12:55 | NUR ---
PRN PAIN MEDICATION GIVEN PER PATIENT REQUEST FOR LEFT SHOULDER PAIN
--- NOTE | 2019-09-06 16:27 | NUR ---
CARE TEAM MEETING: PATIENT IS NEW TO UNIT AND WILL BE RA AT NEXT MEETING. WILL CONTINUE TO FOLLOW WITH PATIENT AND WILL ASSIST WITH DISCHARGE NEEDS.
--- NOTE | 2019-09-06 19:05 | NUR ---
BEDSIDE REPORT COMPLETE. PT LYING IN BED ALERT AND ORIENTED X4. NO CONCERNS VOICED. PAIN ADDRESSED. VS STABLE. SHIFT ASSESSMENT COMPLETE. INFO BOARD UPDATED. CONTINUES ON 2L VIA NC. CL IN REACH. FALL PRECAUTIONS IN PLACE. WILL CONTINUE TO MONITOR
[2019-09-06 21:13] VITALS: BP 111/58
--- NOTE | 2019-09-07 00:08 | NUR ---
QUIET HOURS. PT LYING IN BED EYES CLOSED RESTING QUIETLY. RR EVEN AND UNLABORED. CL IN REACH. CONTINUES ON 2L VIA NC. WILL CONTINUE TO MONITOR
--- NOTE | 2019-09-07 04:02 | NUR ---
PT LYING IN BED SUPINE EYES CLOSED RESTING. CONTINUES ON 2L VIA NC. RR EVEN AND UNLABORED. CL IN REACH
[2019-09-07 05:54] LABS: INR 2.32 (0.85-1.17); PROTIME 24.7 SECONDS (11.6-15.0)
--- NOTE | 2019-09-07 06:29 | NUR ---
PT LYING IN BED WATCHING MORNING NEWS. CL IN REACH
--- NOTE | 2019-09-07 07:49 | NUR ---
NUTRITION F/U CHART REVIEWED. PT TOLERATING ADA DIET WITH 50% INTAKE RECENT MEALS. ALSO RECEIVING GLUCERNA SHAKE WITH MEALS. +BM RECORDED. WILL CONTINUE TO PROVIDE ADA DIET WITH GLUCERNA SHAKE. MONITOR PO INTAKE. RD FOLLOWING
--- NOTE | 2019-09-07 08:00 | NUR ---
PT RESTING IN BED WITH EYES OPEN CALL LIGHT IN REACH NO PROBLEMS WILL MONITER
[2019-09-07 10:04] VITALS: BP 135/47
--- NOTE | 2019-09-07 16:28 | NUR ---
I have reviewed this patient and I concur with the Shift Assessment completed by the Licensed Practical Nurse today this shift.
--- NOTE | 2019-09-07 17:14 | NUR ---
PT RESTING IN BED WITH EYES OPEN CALL LIGHT IN REACH WILL MONITER
[2019-09-07 19:20] VITALS: BP 119/59
--- NOTE | 2019-09-07 19:20 | NUR ---
BEDSIDE REPORT COMPLETE. PT SITTING UP IN BED ALERT AND ORIENTED X4. ASSISTED TO RESTROOM WITH MIN ASSIST. ASSISTED WITH BRIEF CHANGE. PT BACK IN BED HOB 20 DEGREES. CONTINUES ON 2L VIA NC. VS STABLE. SHIFT ASSESSMENT COMPLETE. CL IN REACH. BED ALARM ON. WILL CONTINUE TO MONITOR
--- NOTE | 2019-09-07 23:29 | NUR ---
QUIET HOURS. PT LYING IN BED EYES CLOSED RESTING QUIETLY. RR EVEN AND UNLABORED. CONTINUES ON 2L VIA NC. CL IN REACH. ALARM ON.
--- NOTE | 2019-09-08 03:18 | NUR ---
PT LYING IN BED ON RIGHT SIDE EYES CLOSED RESTING
[2019-09-08 06:00] LABS: BASOPHILS 0 % (0-2); EOSINOPHILS 0.4 % (0-7); HEMATOCRIT 28.2 % (36.0-48.0); HEMOGLOBIN 9.1 g/dL (12-16); IMMATURE GRANULOCYTES 2.5 % (0-5); LYMPHOCYTES 16.9 % (15-50); MCH 30.4 pg (26.0-34.0); MCHC 32.3 g/dL (31.0-37.0); MCV 94.3 fL (80.0-100.0); MEAN PLATELET VOLUME 10.1 fL (7.4-10.4); MONOCYTES 10.5 % (2-11); NEUTROPHILS 69.7 % (40-80); PLATELET COUNT 232 10x3/uL (130-400); RBC 2.99 10x6/uL (4.00-5.40); RDW 13.5 % (11.5-14.5); WBC 5.7 10x3/uL (4.8-10.8)
[2019-09-08 06:14] LABS: INR 2.43 (0.85-1.17); PROTIME 25.7 SECONDS (11.6-15.0)
[2019-09-08 06:17] LABS: ANION GAP 9.2 mmol/L (8-16); CALCIUM 8.4 mg/dL (8.5-10.1); CARBON DIOXIDE 32.6 mmol/L (21.0-32.0); CREATININE - SERUM 0.8 mg/dL (0.6-1.3); POTASSIUM - SERUM 3.8 mmol/L (3.5-5.1)
--- NOTE | 2019-09-08 09:54 | NUR ---
PT PARTICIPATING IN THERAPY. AM MEDS ADMINISTERED WITHOUT DIFFICULTY. PT DENIES NEEDS. WCTM.
[2019-09-08 13:58] VITALS: BP 128/54
[2019-09-08 19:46] VITALS: BP 140/60
--- NOTE | 2019-09-08 19:51 | NUR ---
AWAKE AND ALERT. RESTING IN BED WITH RESPIRATIONS ULABORED. STERI-STRIPS INTACT TO BACK. SLING IN PLACE TO LEFT ARM. NO DISTRESS NOTED. CALL LIGHT IN REACH.
--- NOTE | 2019-09-09 01:26 | NUR ---
SLEEPING WITH RESPIRATIONS UNLABORED. NO DISTRESS NOTED. CALL LIGHT IN REACH. LEFT ARM IN SLING.
--- NOTE | 2019-09-09 05:13 | NUR ---
QUIET HOURS. NO ACUTE CHANGES IN CONDITION THIS SHIFT. LEFT ARM IN SLING. RESPIRATIONS UNLABORED. NO DISTRESS NOTED. CALL LIGHT IN REACH.
[2019-09-09 06:53] LABS: INR 3.54 (0.85-1.17); PROTIME 34.6 SECONDS (11.6-15.0)
--- NOTE | 2019-09-09 08:50 | NUR ---
PT AM MEDS ADMINISTERED. PT DENIES NEEDS. WCTM.
[2019-09-09 19:29] VITALS: BP 108/54
--- NOTE | 2019-09-09 19:41 | NUR ---
AWAKE AND ALERT. RESPIRATIONS UNLABORED. ASSISTED TO BATHROOM AND BACK TO BED. LEFT ARM IN SLING. NO ACUTE DISTRESS NOTED. CALL LIGHT IN REACH.
--- NOTE | 2019-09-10 00:48 | NUR ---
SLEEPING WITH RESPIRATIONS UNLABORED. O2/2L ON PER NASAL CANNULA. LEFT ARM IN SLING. NO DISTRESS NOTED. CALL LIGHT IN REACH.
--- NOTE | 2019-09-10 05:25 | NUR ---
QUIET HOURS. NO ACUTE CHANGES IN CONDITION THIS SHIFT. LEFT ARM IN SLING. RESTING IN BED WITH NO ACUTE DISTRESS NOTED. CALL LIGHT IN REACH.
[2019-09-10 07:10] LABS: INR 2.91 (0.85-1.17); PROTIME 29.6 SECONDS (11.6-15.0)
[2019-09-10 08:00] VITALS: BP 124/52
--- NOTE | 2019-09-10 08:00 | NUR ---
PATIENT IS ALERT/ORIENT. SITTING ON THE SIDE OF THE BED TO EAT BREAKFAST. CALL LIGHT WITHIN REACH. VOICES NO NEEDS AT THIS TIME. WILL CONTINUE WITH PLAN OF CARE
--- NOTE | 2019-09-10 13:24 | NUR ---
PATIENT HELPED INTO BATHROOM. MIN ASST WITH AUGUSTUS CARE. PATIENT WEARS BRIEFS. DAUGHTER IN ROOM WITH PATIENT.
--- NOTE | 2019-09-10 17:03 | NUR ---
GLUCOSE LEVEL 152. PATIENT REFUSED SLIDING SCALE REGULAR INSULIN
[2019-09-10 19:26] VITALS: BP 115/49
--- NOTE | 2019-09-10 19:31 | NUR ---
AWAKE AND ALERT. RESTING IN BED WITH RESPIRATIONS UNLABORED. ASSISTED TO BATHROOM AND BACK TO BED. LEFT ARM IN SLING. NO ACUTE DISTRESS NOTED. CALL LIGHT IN REACH.
--- NOTE | 2019-09-11 01:08 | NUR ---
SLEEPING WITH RESPIRATIONS UNLABORED. SLING TO LEFT ARM IN PLACE. NO DISTRESS NOTED. CALL LIGHT IN REACH.
--- NOTE | 2019-09-11 05:41 | NUR ---
RESTING IN BED. UP TO BATHROOM 4-5 TIMES THIS SHIFT. REFUSES TO TAKE SHOWER STATING "I DONT FEEL LIKE IT". LEFT ARM REMAINS IN SLING. NO ACUTE DISTRESS NOTED.
[2019-09-11 06:32] LABS: BASOPHILS 0 % (0-2); EOSINOPHILS 0.7 % (0-7); HEMATOCRIT 29.6 % (36.0-48.0); HEMOGLOBIN 9.7 g/dL (12-16); IMMATURE GRANULOCYTES 6.4 % (0-5); LYMPHOCYTES 17.3 % (15-50); MCH 30.7 pg (26.0-34.0); MCHC 32.8 g/dL (31.0-37.0); MCV 93.7 fL (80.0-100.0); MEAN PLATELET VOLUME 9.9 fL (7.4-10.4); MONOCYTES 13.3 % (2-11); NEUTROPHILS 62.3 % (40-80); RBC 3.16 10x6/uL (4.00-5.40); RDW 13.4 % (11.5-14.5); WBC 5.5 10x3/uL (4.8-10.8)
[2019-09-11 06:38] LABS: PLATELET COUNT 299 10x3/uL (130-400)
[2019-09-11 06:48] LABS: INR 2.15 (0.85-1.17); PROTIME 23.3 SECONDS (11.6-15.0)
[2019-09-11 07:22] LABS: CALC OSMOLALITY 281 mosm/kg (275-300); CARBON DIOXIDE 32.7 mmol/L (21.0-32.0); CHLORIDE - SERUM 102 mmol/L (98-107); CREATININE - SERUM 0.6 mg/dL (0.6-1.3); GLUCOSE 122 mg/dL (74-106); POTASSIUM - SERUM 3.2 mmol/L (3.5-5.1); SODIUM 141 mmol/L (136-145); UREA NITROGEN 12 mg/dL (7-18); eGFR NON AFRICAN AMERICAN > 90 mL/min (90-120)
--- NOTE | 2019-09-11 08:00 | NUR ---
AELRT AND ORIENTED. RESP EVEN AND UNLABORED. EATING BREAKFAST. CL IN REACH. REPOSITIONED UP IN BED.
[2019-09-11 08:03] VITALS: BP 127/60
--- NOTE | 2019-09-11 12:59 | NUR ---
RESTING IN BED WO DISTRESS. CL INREACH.
--- NOTE | 2019-09-11 15:48 | NUR ---
NO CHANGE IN ASSESSMENT. RESTING IN BED AT THIS TIME.CL IN REACH.
--- NOTE | 2019-09-11 19:30 | NUR ---
BEDSIDE REPORT COMPLETE. PT SITTING UP IN W/C ALERT AND ORIENTED X4. DENIES ANY NEEDS OR PAIN. NO SIGNS OF DISTRESS NOTED. CONTINUES ON 2L VIA NC. VS STABLE. SHIFT ASSESSMENT COMPLETE. CL IN REACH. FALL PRECAUTIONS IN PLACE. WILL CONTINUE TO MONITOR
[2019-09-11 21:02] VITALS: BP 119/65
--- NOTE | 2019-09-11 23:11 | NUR ---
QUIET HOURS. PT LYING IN BED EYES CLOSED RESTING QUIETLY. RR EVEN AND UNLABORED. CL IN REACH. WILL CONTINUE TO MONITOR
--- NOTE | 2019-09-12 03:26 | NUR ---
PT LYING IN BED SUPINE EYES CLOSED RESTING QUIETLY. RR EVEN AND UNLABORED. CONTINUES ON 2L VIA NC. CL IN REACH
[2019-09-12 05:42] LABS: INR 2.01 (0.85-1.17); PROTIME 22.1 SECONDS (11.6-15.0)
[2019-09-12 07:57] VITALS: BP 127/49
--- NOTE | 2019-09-12 08:15 | NUR ---
PT RESTING IN BED WITH EYES OPEN CALL LIGHT IN REACH WILL MONITER
--- NOTE | 2019-09-12 18:10 | NUR ---
PT RESTING IN BED WITH EYES OPEN CALL LIGHT IN REACH WILL MONITER
[2019-09-12 20:56] VITALS: BP 105/52
--- NOTE | 2019-09-12 21:00 | NUR ---
PT RESTING IN BED. ALERT AND OREINTED. NO SIGNS OF DISTRESS. BREATHING EVEN AND UNLABORED. NO IV SITE. SKIN CLEAN DRY AND INTACT. SLING FOR LT ARM. LT ARM BRUISES PRESENT. LOWER BACK INCISION PRESENT CLEAN DRY AND INTACT. OPEN TO ARIR. NO SINGS OF INFECTION. BILATERAL MYCECTOMY. BOWEL SOUNDS ACTIVE. GENERLIZED WEAKNESS. PT LEGALLY BLIND. WILL CONTINUE PLAN OF CARE. CALL LIGHT IN REACH. BED LOWERED AND LOCKED. BED RAILS UPX2. PHILIPPE ALARM ON.
--- NOTE | 2019-09-13 00:05 | NUR ---
QUIET HOURS. PT LYING IN BED EYES CLOSED RESTING. CONTINUES ON 2L VIA NC. CL IN REACH
[2019-09-13 06:32] LABS: BASOPHILS 0 % (0-2); EOSINOPHILS 0.9 % (0-7); HEMATOCRIT 28.6 % (36.0-48.0); HEMOGLOBIN 9.2 g/dL (12-16); IMMATURE GRANULOCYTES 7.1 % (0-5); LYMPHOCYTES 25.8 % (15-50); MCH 30.6 pg (26.0-34.0); MCHC 32.2 g/dL (31.0-37.0); MEAN PLATELET VOLUME 9.9 fL (7.4-10.4); MONOCYTES 11.5 % (2-11); NEUTROPHILS 54.7 % (40-80); PLATELET COUNT 297 10x3/uL (130-400); RBC 3.01 10x6/uL (4.00-5.40); RDW 13.7 % (11.5-14.5); WBC 4.3 10x3/uL (4.8-10.8)
[2019-09-13 06:52] LABS: CALCIUM 8.4 mg/dL (8.5-10.1); CARBON DIOXIDE 30.6 mmol/L (21.0-32.0); CHLORIDE - SERUM 102 mmol/L (98-107); CREATININE - SERUM 0.6 mg/dL (0.6-1.3); SODIUM 139 mmol/L (136-145); UREA NITROGEN 13 mg/dL (7-18); eGFR NON AFRICAN AMERICAN > 90 mL/min (90-120)
[2019-09-13 06:53] LABS: CALC OSMOLALITY 275 mosm/kg (275-300); GLUCOSE 63 mg/dL (74-106)
[2019-09-13 06:57] LABS: INR 2.17 (0.85-1.17); PROTIME 23.5 SECONDS (11.6-15.0)
--- NOTE | 2019-09-13 08:00 | NUR ---
PATIENT IS ALERT/ORIENT. SITTING UP IN BED TO EAT BREAKFAST. CALL LIGHT WITHIN REACH. VOICES NO NEEDS. WILL CONTINUE WITH PLAN OF CARE
[2019-09-13 08:08] VITALS: BP 129/58
--- NOTE | 2019-09-13 09:58 | NUR ---
PATIENT IN ROOM. WORKING WITH OCCUPATIONAL THERAPIST.
--- NOTE | 2019-09-13 13:04 | NUR ---
PATIENT HELPED INTO BATHROOM. WEARS BRIEFS FOR STRESS INC. PATIENT ABLE TO DO OWN AUGUSTUS CARE. WALKS TO BATHROOM WITH STAND BY ASST USING WHEELED WALKER
--- NOTE | 2019-09-13 13:55 | NUR ---
PRN PAIN MEDICATION GIVEN FOR LEFT SHOULDER PAIN PER PATIENT REQUEST
--- NOTE | 2019-09-13 14:43 | NUR ---
Nutrition Follow-up: Diet: Diabetic PO intake: 60% averages x last 9 meals; reports appetite typically good but has not been great today. She is drinking at least 1 Glucerna per day. Significant meds: coumadin, lasix, glipizide, SSI. Labs noted: Glu 63. Wt: 140# (09/05/19). + BM Continue current nutrition regimen. RD Following
--- NOTE | 2019-09-13 14:48 | NUR ---
I have reviewed this patient and I concur with the Shift Assessment completed by the Licensed Practical Nurse today this shift.
--- NOTE | 2019-09-13 16:22 | NUR ---
CARE TEAM MEETING: PATIENT PROGRESSING IN THEAPY. RECIEVED CALL FROM [facility] AND THEY REQUEST A HOSPTIAL BED BE ORDERED FOR HOME USE. TENATIVE DISCHARGE DATE IS 09/19/19 BACK TO [facility].
--- NOTE | 2019-09-13 19:43 | NUR ---
AWAKE AND ALERT. ASSISTED TO BATHROOM AND BACK TO BED. MEDICATED FOR PAIN. SEE MAR. LEFT ARM IN SLING. O2/2L ON PER NASAL CANNULA. NO ACUTE DISTRESS NOTED. CALL LIGHT IN REACH.
[2019-09-13 20:37] VITALS: BP 104/49
--- NOTE | 2019-09-14 02:40 | NUR ---
SLEEPING WITH RESPIRATIONS UNLABORED. NO DISTRESS NOTED. CALL LIGHT IN REACH.
--- NOTE | 2019-09-14 06:18 | NUR ---
QUIET HOURS. NO ACUTE CHANGES IN CONDITION THIS SHIFT. MEDICATED FOR C/O PAIN. SEE MAR. ASSISTED TO BATHROOM AND BACK TO BED. NO ACUTE DISTRESS NOTED. CALL LIGHT IN REACH.
[2019-09-14 08:01] LABS: INR 2.17 (0.85-1.17); PROTIME 23.5 SECONDS (11.6-15.0)
[2019-09-14 08:28] VITALS: BP 123/50
--- NOTE | 2019-09-14 09:35 | NUR ---
PT AM MEDS ADMINISTERED. PT DENIES NEEDS. WCTM.
--- NOTE | 2019-09-14 19:29 | NUR ---
BEDSIDE REPORT RECEIVED FROM DAY SHIFT, PT CARE ASSUMED. INTRODUCED SELF AND WROTE NAME ON BOARD, PT LYING IN BED WITH EYES CLOSED, RR EVEN AND NONLABORED, NO S/S OF DISTRESS. DENIES ANY NEEDS AT THIS TIME. BED IN LOWEST POSITION, SR X2, CALL LIGHT WITHIN REACH. WILL CONTINUE TO MONITOR.
--- NOTE | 2019-09-14 20:21 | NUR ---
PT ASSISTED TO BATHROOM AND BACK TO BED BY JULIO SALMON. NIGHT TIME MEDS ADMINISTERED, PER ORDER. REFUSED MIRALAX, REPORTS HAVING BM THIS AM. DENIES ANY OTHER NEEDS AT THIS TIME. BED IN LOWEST POSITION, SR X2, CALL LIGHT AND CELL PHONE WITHIN REACH. WILL CONTINUE TO MONITOR.
[2019-09-14 21:11] VITALS: BP 122/53
--- NOTE | 2019-09-15 00:47 | NUR ---
PT LYING IN BED WITH EYES CLOSED, RR EVEN AND NONLABORED, NO S/S OF DISTRESS, AROUSES EASILY TO VOICE. DENIES ANY NEEDS AT THIS TIME. BED IN LOWEST POSITION, SR X2, CALL LIGHT WITHIN REACH. WILL CONTINUE TO MONITOR.
--- NOTE | 2019-09-15 05:24 | NUR ---
PT LYING IN BED A&A, LAB IN ROOM FOR AM LABS. AM MEDS ADMINISTERED, PER ORDER. DENIES ANY OTHER NEEDS AT THIS TIME. BED IN LOWEST POSITION, SR X2, CALL LIGHT WITHIN REACH. WILL CONTINUE TO MONITOR.
[2019-09-15 06:20] LABS: BASOPHILS 0 % (0-2); EOSINOPHILS 0.5 % (0-7); HEMATOCRIT 27.5 % (36.0-48.0); HEMOGLOBIN 8.9 g/dL (12-16); IMMATURE GRANULOCYTES 1.6 % (0-5); LYMPHOCYTES 26.3 % (15-50); MCH 30.8 pg (26.0-34.0); MCHC 32.4 g/dL (31.0-37.0); MCV 95.2 fL (80.0-100.0); MEAN PLATELET VOLUME 9.7 fL (7.4-10.4); MONOCYTES 11.5 % (2-11); NEUTROPHILS 60.1 % (40-80); PLATELET COUNT 294 10x3/uL (130-400); RBC 2.89 10x6/uL (4.00-5.40); RDW 13.8 % (11.5-14.5); WBC 4.3 10x3/uL (4.8-10.8)
[2019-09-15 06:48] LABS: CALCIUM 8.6 mg/dL (8.5-10.1); CARBON DIOXIDE 31.9 mmol/L (21.0-32.0); CHLORIDE - SERUM 101 mmol/L (98-107); CREATININE - SERUM 0.7 mg/dL (0.6-1.3); POTASSIUM - SERUM 4.1 mmol/L (3.5-5.1); SODIUM 138 mmol/L (136-145); eGFR NON AFRICAN AMERICAN 84 mL/min (90-120)
[2019-09-15 06:49] LABS: CALC OSMOLALITY 278 mosm/kg (275-300); GLUCOSE 117 mg/dL (74-106); UREA NITROGEN 19 mg/dL (7-18)
[2019-09-15 08:00] VITALS: BP 117/42
--- NOTE | 2019-09-15 08:00 | NUR ---
SITTING UP IN BED FOR BREAKFAST. LUE IN SLING. IS PLEASANT AND COOPERATIVE. WEARING OXYGEN 2LNC. CALL LIGHT IN REACH
--- NOTE | 2019-09-15 12:11 | NUR ---
SITTING UP IN BED FOR LUNCH. DENIES INCREASED PAIN. STATES PAIN MEDS ARE WORKING. CALL LIGHT IN REACH
--- NOTE | 2019-09-15 13:37 | NUR ---
order has been faxed to [facility] for a hospital bed to be delivered. patient daughter Anjana has been notified.
--- NOTE | 2019-09-15 17:45 | NUR ---
SITTING ON SIDE OF BED EATING SUPPER. DENIES INCREASED PAIN OR SOB. CALL LIGHT IN REACH
--- NOTE | 2019-09-15 19:18 | NUR ---
PT RESTING QUIETLY. CL IN REACH. DENIES NEEDS AT THIS TIME. RESP EVEN AND UNLABORED. LUNGS CLEAR. BOWEL ACTIVE X4. O2 ON 2L VIA NC. A/O X4. BED IN LOW SIDE RAILS X2. WILL CONTINUE TO MONITOR.
[2019-09-15 21:05] VITALS: BP 118/42
--- NOTE | 2019-09-15 23:18 | NUR ---
I have reviewed this patient and I concur with the Shift Assessment completed by the Licensed Practical Nurse today this shift.
--- NOTE | 2019-09-16 02:00 | NUR ---
PT RESTING QUIETLY. CL IN REACH. NO DISTRESS NOTED. WCTM
[2019-09-16 05:05] LABS: INR 2.26 (0.85-1.17); PROTIME 24.2 SECONDS (11.6-15.0)
--- NOTE | 2019-09-16 05:53 | NUR ---
PT RESTING QUIETLY. CL IN REACH. DENIES NEEDS AT THIS TIME. BED IN LOW. O2 ON 2L VIA NC. WCTM.
[2019-09-16 08:00] VITALS: BP 141/56
--- NOTE | 2019-09-16 09:54 | NUR ---
LAYING DOWN IN BED. HAS BEEN UP MOST OF MORNING. LUE IN SLING. PAIN MEDS GIVEN REQUESTED. CALL LIGHT IN REACH
--- NOTE | 2019-09-16 14:24 | NUR ---
SITTING UP IN BED VISITING WITH FAMILY. PAIN MEDS GIVEN ASKED AND ORDERED.
[2019-09-16 19:26] VITALS: BP 118/49
--- NOTE | 2019-09-16 19:42 | NUR ---
PT LYING IN BED. CL IN REACH. DENIES NEEDS AT THIS TIME. BED IN LOW SIDE RAILS X2. O2 ON 2L VIA NC. A/O X4. LUNGS CLEAR. BOWEL ACTIVE X4. RESP EVEN AND UNLABORED. WILL CONTINUE TO MONITOR.
--- NOTE | 2019-09-17 00:12 | NUR ---
I have reviewed this patient and I concur with the Shift Assessment completed by the Licensed Practical Nurse today this shift.
--- NOTE | 2019-09-17 01:00 | NUR ---
ASSISTED TO AND FROM BATHROOM. PT BACK IN BED. DENIES NEEDS. WCTM
[2019-09-17 05:30] LABS: INR 2.32 (0.85-1.17); PROTIME 24.7 SECONDS (11.6-15.0)
--- NOTE | 2019-09-17 05:35 | NUR ---
PT RESTING QUIETLY. DENIES NEEDS. CL IN REACH. MORNING MEDS GIVEN. WILL CONTINUE TO MONITOR.
--- NOTE | 2019-09-17 07:30 | NUR ---
RESTING QUIETLY IN BED. OXYGEN IN USE 2LNC. NO S/S DISTRESS. LUE IN SLING RESTING ON PILLOW. CALL LIGHT IN REACH
[2019-09-17 08:00] VITALS: BP 142/71
--- NOTE | 2019-09-17 12:15 | NUR ---
SITTING UP IN WC FOR LUNCH. C/O INCREASED PAIN TO LUE TODAY. PAIN MEDS GIVEN ORDERED. CALL LIGHT IN REACH
--- NOTE | 2019-09-17 15:22 | NUR ---
RESTING IN BED WITH EYES CLOSED. LUE IN SLING AND ON PILLOW. WEARING OXYGEN 2LNC. CALL LIGHT IN HAND
--- NOTE | 2019-09-17 18:19 | NUR ---
STILL C/O DISCOMFORT TO LUE. WILL NOT KEEP LUE STILL OR ELEVATED. PAIN MEDS GIVEN TO PT ORDERED. CALL LIGHT IN REACH
--- NOTE | 2019-09-17 19:17 | NUR ---
GREETED PATIENT AND INTRODUCED MYSELF HER NURSE. PATIENT IS LAYING IN BED WATCHING TV. RESPIRATIONS EVEN. NO S/S OF DISTRESS. STATES THAT PAIN IS 6/10 IN LEFT ARM. CALL LIGHT IN REACH. DENIES ANY FURTHER NEEDS AT THIS TIME.
[2019-09-17 20:00] VITALS: BP 111/58
--- NOTE | 2019-09-17 23:27 | NUR ---
PT. RESTING QUIETLY WITH EYES CLOSED. RESPIRATIONS EVEN. NO S/S OF DISTRESS. O2 AT 2L IN USE VIA NC. CALL LIGHT IN REACH.
--- NOTE | 2019-09-18 02:39 | NUR ---
PT. RESTING QUIETLY WITH EYES CLOSED. RESPIRATIONS EVEN. NO S/S OF DISTRESS. CALL LIGHT IN REACH.
[2019-09-18 05:50] LABS: HEMATOCRIT 29.4 % (36.0-48.0); HEMOGLOBIN 9.4 g/dL (12-16); MCH 30.9 pg (26.0-34.0); MCV 96.7 fL (80.0-100.0); MEAN PLATELET VOLUME 9.1 fL (7.4-10.4); PLATELET COUNT 282 10x3/uL (130-400); RBC 3.04 10x6/uL (4.00-5.40); RDW 14.1 % (11.5-14.5); WBC 4.1 10x3/uL (4.8-10.8)
--- NOTE | 2019-09-18 06:06 | NUR ---
PT AWAKE AND AM MEDICATION ADMINISTERED. ASSISTED TO BATHROOM AND BACK TO BED AND REPOSITIONED FOR COMFORT. CALL LIGHT IN REACH.
[2019-09-18 06:09] LABS: CALC OSMOLALITY 281 mosm/kg (275-300); CARBON DIOXIDE 33.4 mmol/L (21.0-32.0); CHLORIDE - SERUM 102 mmol/L (98-107); CREATININE - SERUM 0.7 mg/dL (0.6-1.3); GLUCOSE 93 mg/dL (74-106); INR 2.33 (0.85-1.17); POTASSIUM - SERUM 3.7 mmol/L (3.5-5.1); PROTIME 24.9 SECONDS (11.6-15.0); SODIUM 141 mmol/L (136-145); UREA NITROGEN 15 mg/dL (7-18); eGFR NON AFRICAN AMERICAN 84 mL/min (90-120)
[2019-09-18 08:14] VITALS: BP 116/51
--- NOTE | 2019-09-18 10:46 | NUR ---
SITTING UP IN WC. HAS LUE IN SLING. DENIES NEEDS AT PRESENT.
[2019-09-18 11:28] LABS: EOSINOPHILS 1 % (0-7); LYMPHOCYTES 25 % (15-50); MONOCYTES 12 % (2-11); NEUTROPHILS 62 % (40-80); PLATELET ESTIMATE NORMAL
--- NOTE | 2019-09-18 13:16 | NUR ---
Nutrition Follow-up: Diet: Diabetic + Glucerna with meals PO intake: ~67% average x last 9 meals. Reprots good appetite but states that she hasn't felt like eating today. She is drinking Glucerna. Labs reviewed. Significant meds: coumadin, lasix, miralax. Wt: 140# (09/05/19), no new wt. Last BM 09/16/19. Continue current nutrition regimen. Encourage PO intake. RD Following.
--- NOTE | 2019-09-18 14:41 | NUR ---
RESTING QUIETLY IN BED. LUE IN SLING AND ELEVATED ON PILLOW. CALL LIGHT IN REACH
--- NOTE | 2019-09-18 17:32 | NUR ---
SITTING UP ON SIDE OF BED EATING SUPPER AND TALKING TO SPEECH THERAPIST. LUE IN SLING. WEARING OXYGEN 2LNC.
--- NOTE | 2019-09-18 19:11 | NUR ---
GREETED PATIENT AND INTRODUCED MYSELF HER NURSE. PATIENT IS LAYING IN BED WATCHING TV. RESPIRATIONS EVEN. NO S/S OF DISTRESS. O2 AT 2L VIA NC. PAIN LEVEL 4/10 ON LEFT SHOULDER AND LEFT ELBOW. DENIES ANY FURTHER NEEDS AT THIS TIME. CALL LIGHT IN REACH.
[2019-09-18 21:00] VITALS: BP 110/51
--- NOTE | 2019-09-18 23:46 | NUR ---
PT. RESTING QUIETLY WITH EYES CLOSED. O2 AT 2L IN USE VIA NC. RESPIRATIONS EVEN. NO S/S OF DISTRESS.CALL LIGHT IN REACH.
--- NOTE | 2019-09-19 04:32 | NUR ---
PT. RESTING QUIETLY WITH EYES CLOSED. O2 AT 2L IN USE VIA NC. RESPIRATIONS EVEN. NO S/S OF DISTRESS. CALL LIGHT IN REACH.
[2019-09-19 06:24] LABS: INR 2.29 (0.85-1.17); PROTIME 24.5 SECONDS (11.6-15.0)
[2019-09-19 08:21] VITALS: BP 130/50
[2019-09-19] MEDS ORDERED: HYDROCODON-ACE1 EAC7 PO (08:33)
--- NOTE | 2019-09-19 08:35 | RHP ---
PATIENT: EMMETT OLIVIA MEDICAL RECORD: [id number] ACCOUNT: [id number] [facility] AD[facility] DATE: 09/04/19 REHABILITATION HISTORY AND PHYSICAL EXAMINATION POST ADMISSION PHYSICIAN EXAMINATION ADMITTING DIAGNOSES: Muscular wasting and disuse atrophy. 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 She presented to the ED on 08/30/2019 via EMS after a fall from her bed at [facility] and complained of arm pain. The patient reported that the patient had kyphoplasty on 08/30/2019 and had been off her Coumadin for that procedure. X-ray of her shoulder showed a left humeral surgical neck fracture with overriding and shortening with moderate displacement. Orthopedic surgery was consulted. No surgical intervention at this time, but recommended left shoulder immobilizer. She has complained of overall pains due to her kyphoplasty. The patient had an x-ray done, which showed postoperative changes with severe osteopenia. There is an L3 compression fracture, but the age of this is unknown as there are no prior exams. The patient continues having increased pain. She has been restarted on her Coumadin. She is being monitored for a therapeutic INR. She got some numbness, tingling, deconditioning, debility, gait disturbance, impaired mobility and she is a high fall risk and self-care deficits. These are all barriers to her discharge home. She has her left upper extremity in a brace with precautions with orthopedic surgery, also with lifting precautions after having a kyphoplasty on 08/30/2019. She has been seen and cleared by neurosurgery for acute inpatient rehabilitation. She and her family would like for her to return back to another assisted living as they are unhappy with [facility]. She will also be set up with home health and hopefully get back to her prior level of functioning as close as possible. COMORBIDITIES: Include fall, fracture of the left humerus, kyphoplasty, acute pain, hypertension, CHF, COPD, history of atrial fib, depression, history of breast cancer, electrolyte abnormalities, L3 compression fracture. PAST MEDICAL HISTORY: Significant for legally blind. She has got a history of diabetes, hypertension, CHF, atrial fib, coronary artery disease, hyperlipidemia, arthritis. She has had depression and breast cancer. PAST SURGICAL HISTORY: Includes bilateral mastectomy and kyphoplasty. ALLERGIES: PENICILLIN, MORPHINE, OXYCODONE, AND NITROFURANTOIN. CURRENT MEDICATIONS: Include warfarin, she is on 9 mg on Wednesday, , she is on 6 mg the rest of the week; furosemide 20 mg daily; Flomax 0.4 mg daily; isosorbide 30 mg daily; furosemide 40 mg daily along with the 20. Prozac 40 mg daily; Colace 200 mg daily; vitamin D, she is on 2000 units daily; aspirin chewable 81 mg daily; Carafate 1 g t.i.d.; glipizide 2.5 mg b.i.d.; Protonix 40 mg b.i.d.; Synthroid 25 mcg daily; potassium 10 mEq b.i.d.; polyethylene glycol 17 grams in 8 ounces of water daily; she is on Singulair 10 mg at bedtime; Neurontin 100 mg at bedtime; atorvastatin 40 mg at bedtime; she is on low resistant sliding scale Humulin; she is on MiraLax 17 g daily and Austin 5/325 one tab every 4 hours p.r.n. HABITS: No current alcohol or tobacco use. HISTORY AND PHYSICAL [id number] [facility] FAMILY HISTORY: Noncontributory. SOCIAL HISTORY: The patient will again return back to assisted living at some time, probably not [facility]. REVIEW OF SYSTEMS: GENERAL: Does complain of some weakness and fatigue. HEENT: Denies cold, cough, or congestion. CARDIOVASCULAR: Denies chest pain. PHYSICAL EXAMINATION: VITAL SIGNS: Stable, afebrile. Her pulse is 92, temperature is 98.2, respirations are 19, blood pressure 108/51, sat is 94% on room air. GENERAL: A well-developed female in no acute distress, alert upon exam. HEENT: Normocephalic and atraumatic. Mucosa is moist. NECK: Supple. No lymphadenopathy. LUNGS: Clear in upper hart. No wheezing, rhonchi or rales. HEART: Regular rate and rhythm. No murmurs, rubs or gallops. ABDOMEN: Benign, nontender, nondistended. Positive bowel sounds times 4. EXTREMITIES: No clubbing, cyanosis or edema. She is noted to have her arm in a sling at this time. NEUROLOGIC: She does have proximal muscle weakness. LABORATORY DATA: White count is 4.3, H&H of 10 and 31 and platelet count is noted to be 199. Her sodium is 139, potassium 4.1, BUN and creatinine of 11 and 0.7, blood sugar is 106. Her INR is 2.05. 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 The patient has potential to make improvement. We instituted the following multidisciplinary therapies including, but not limited to physical, occupational, respiratory, speech, nutritional services, prosthetics and orthotics. Given her complex medical condition and risk for more complications, rehabilitation services cannot be provided at a low level of care such as skilled nurse facility. PLAN: 1. Admit to [facility] for intensive inpatient therapy to include the following disciplines: A. Physical therapy to improve gait, all transfer skills and bed mobility to a modified independent level. B. Occupational therapy to a modified independent level. C. Case management to assist with discharge planning and placement options. D. Nutrition to assist with nutritional needs. E. Rehabilitation nursing to assist in monitoring the patient's underlying medical condition and to assist with any type of bowel or bladder management. 2. The patient's current medication and medical care will be continued. 3. The patient will be placed on standard fall precautions. 4. The patient's estimated length of stay is approximately 7-10 days. 5. We will discuss this patient with care team staff meeting this week. We will go ahead and continue on home medications where appropriate. Her INR is back to therapeutic means and I will see again in the a.m. TRANSINT:[id number] Voice Confirmation ID: [id number] DOCUMENT ID: [id number] HISTORY AND PHYSICAL [id number] EMMETT OLIVIA notes whether there has been none or any medical/functional change since admission: - No change since prescreen. JOSE attests patient continues to be appropriate for IRF: - Continues to be appropriate. AIME LEBRON MD at 0835 CC: [id number] DICTATION DATE: 09/05/19 1103 MUSIC HISTORIAN: 09/05/19 1226 ADM IN [facility] [address] [place] [address]
--- NOTE | 2019-09-19 09:41 | NUR ---
PATIENT DISCHARGING BACK TO HER HOME AT [facility] WILL PROVIDE THERAPY. [facility] WILL SEE PATIENT IN 7-10 DAYS, [facility] WILL DELIVER A HOSPITAL BED. DR. LY 10/02/19 @ 3:30, DR. COPPOLA/ANDREINA 09/27/19 @ 2:45. PATIENT CHOICE FORM ( HAND OUT GIVEN ) AND IMFM FORMS SIGNED, COPY GIVEN TO PATIENT AND FILED IN CHART. DISCHARGE INSTRUCTIONS FAXED TO [facility], [facility] AND REVIEWWED WITH PATIENT AND HER DAUGHTER.
--- NOTE | 2019-09-19 14:14 | NUR ---
PT RESTING IN BED WITH EYES OPEN CALL LIGHT IN REACH WILL MONITER
--- NOTE | 2019-09-19 15:45 | NUR ---
PT DISCHARGED TO HOME VIA WHEELCHAIR WITH DAUGHTER DISCHARGE SUMMARY AND MEDS REVIEWED WITH PT NO QUESTIONS OR CONCERNS TOLERATED WELL
== END 2019-09-19 17:44 | disposition home health service (06) | DRG 558 ==
LOC: D.REHAB 17:33
PROVIDERS: ADMIT Emergency Medicine; ATTEND Emergency Medicine
DX: M62.50 Muscle wasting and atrophy, not elsewhere classified, unspecified site (principal); S42.302D Unspecified fracture of shaft of humerus, left arm, subsequent encounter for fracture with routine healing; W19.XXXD Unspecified fall, subsequent encounter; I11.0 Hypertensive heart disease with heart failure; I50.9 Heart failure, unspecified; M48.56XD Collapsed vertebra, not elsewhere classified, lumbar region, subsequent encounter for fracture with routine healing; E87.8 Other disorders of electrolyte and fluid balance, not elsewhere classified; Z85.3 Personal history of malignant neoplasm of breast; F32.9 Major depressive disorder, single episode, unspecified; J44.9 Chronic obstructive pulmonary disease, unspecified; E11.9 Type 2 diabetes mellitus without complications; E83.42 Hypomagnesemia; E87.6 Hypokalemia; K21.9 Gastro-esophageal reflux disease without esophagitis; M19.90 Unspecified osteoarthritis, unspecified site

== ENCOUNTER 2019-09-22 10:10 | Inpatient (IN) | payer MEDICARE, BC ==
[~2019-09-22] VITALS: Ht 154.9 cm; Wt 65.0 kg
[2019-09-22 10:58] LABS: BASOPHILS 0.2 % (0-2); EOSINOPHILS 0.8 % (0-7); HEMOGLOBIN 9.5 g/dL (12-16); IMMATURE GRANULOCYTES 6.7 % (0-5); LYMPHOCYTES 22.6 % (15-50); MCH 30.8 pg (26.0-34.0); MCHC 31.7 g/dL (31.0-37.0); MCV 97.4 fL (80.0-100.0); MEAN PLATELET VOLUME 9.9 fL (7.4-10.4); MONOCYTES 10.4 % (2-11); NEUTROPHILS 59.3 % (40-80); PLATELET COUNT 255 10x3/uL (130-400); RBC 3.08 10x6/uL (4.00-5.40); RDW 14.6 % (11.5-14.5); WBC 5.1 10x3/uL (4.8-10.8)
[2019-09-22 11:06] LABS: ANION GAP 10.6 mmol/L (8-16); CALCIUM 8.9 mg/dL (8.5-10.1); CARBON DIOXIDE 32.1 mmol/L (21.0-32.0); CREATININE - SERUM 0.8 mg/dL (0.6-1.3); POTASSIUM - SERUM 3.7 mmol/L (3.5-5.1)
[2019-09-22 11:10] LABS: ALBUMIN 3.2 g/dL (3.4-5.0); BILIRUBIN - TOTAL 0.47 mg/dL (0.2-1.3); PROTEIN - SERUM 6.9 g/dL (6.4-8.2); TROPONIN-I 0.034 ng/mL (0.000-0.060)
[2019-09-22 11:13] LABS: APPEARANCE CLEAR (CLEAR); BILIRUBIN NEGATIVE (NEGATIVE); COLOR YELLOW (YELLOW); GLUCOSE NEGATIVE (NEGATIVE); KETONE NEGATIVE (NEGATIVE); NITRITE NEGATIVE (NEGATIVE); PROTEIN NEGATIVE (NEGATIVE); SPECIFIC GRAVITY 1.015 (1.005-1.020); UROBILINOGEN NORMAL (NORMAL)
[2019-09-22 11:34] LABS: C-REACTIVE PROTEIN 0.8 mg/dL (0.0-0.9); CKMB 0.3 U/L (0.0-3.6); MAGNESIUM - SERUM 1.6 mg/dL (1.8-2.4)
--- NOTE | 2019-09-22 14:21 | NUR ---
1421 PT TO ROOM
--- NOTE | 2019-09-22 14:21 | NUR ---
REPORT TO ADDIS ARCHIBALD. PT TO GO TO ROOM 2215.
--- NOTE | 2019-09-22 14:50 | NUR ---
STOP TIME FOR ER NS AND FLAGYL IS 1445. INFUSING UPON TRANSFER TO FLOOR.
[2019-09-22 15:46] LABS: INR 1.67 (0.85-1.17); PROTIME 19.1 SECONDS (11.6-15.0)
[2019-09-22 15:57] LABS: % SATURATION 21 % (15-55); IRON 56 ug/dl (35-150); TOTAL IRON BIND CAPACITY 257 ug/dl (260-445); UNSAT IRON BIND CAPACITY 201 ug/dl (150-375)
[2019-09-22 16:13] VITALS: BP 132/58
[2019-09-22 16:27] VITALS: BP 152/58; Ht 154.9 cm; Wt 65.0 kg
--- NOTE | 2019-09-22 19:00 | NUR ---
PT ALERT AND ORIENTED WHEN ENTERING THE ROOMS. DURING ASSESSMENT, PATIENT NOTED TO HAVE TIMES OF CONFUSION BUT REORIENTS NWELL. PATIENT HAS RIGHT AC IV THAT IS INFUSING AT A KVO RATE. PATIENT LEGALLY BLIND. HARD OF HEARING. WEARING 2 L NASAL CANNULA. LEFT ARM IN SLING. BRUISING NOTED ALL OVER. RLQ PAIN AT TIMES. TENDER TO PALPATION. DENIES FURTHER NEEDS. CALL LIGHT IN REACH. CPOC.
[2019-09-22 19:53] VITALS: BP 116/48
[2019-09-23] VITALS: BP 95/59
--- NOTE | 2019-09-23 01:55 | NUR ---
I have reviewed this patient and I concur with the Shift Assessment completed by the Licensed Practical Nurse today this shift.
[2019-09-23 04:00] VITALS: BP 129/59
--- NOTE | 2019-09-23 05:16 | NUR ---
FSBS 78. LAST 3 STICKS HAVE TRENDED DOWN. PROVIDED APPLE JUICE AND APPLE SAUCE.
[2019-09-23 07:08] LABS: BASOPHILS 0 % (0-2); EOSINOPHILS 0.7 % (0-7); HEMATOCRIT 29.3 % (36.0-48.0); HEMOGLOBIN 9.3 g/dL (12-16); IMMATURE GRANULOCYTES 6.4 % (0-5); LYMPHOCYTES 15.6 % (15-50); MCH 31.1 pg (26.0-34.0); MCHC 31.7 g/dL (31.0-37.0); MEAN PLATELET VOLUME 9.4 fL (7.4-10.4); MONOCYTES 11.1 % (2-11); NEUTROPHILS 66.2 % (40-80); PLATELET COUNT 227 10x3/uL (130-400); RBC 2.99 10x6/uL (4.00-5.40); RDW 14.7 % (11.5-14.5); WBC 4.2 10x3/uL (4.8-10.8)
--- NOTE | 2019-09-23 07:10 | NUR ---
REC'D PT LYING IN BED HOB 30 DEGREES AOX4 RESP EVEN AND UNLABORED LUNG SOUNDS CLEAR HEART RATE REGULAR NO EDEMA NOTED TO BLE. CAPILLARY REFILL <3 SEC. SKIN PINK WARM AND DRY WITH GOOD TURGOR BRUISING NOTED TO BACK OF RIGHT HAND AND RIGHT ARM AND ARMPIT AREA. PT IS ON COUMADIN AND BRUISES EASILY. PT DENIES PAIN AND NEEDS AT THIS TIME. IV TO RIGHT AC PATENT AND INTACT AT THIS TIME. BED AT LOWEST SETTING WITH BRAKES ON.CALL LIGHT WITHIN REACH WILL CONTINUE TO MONITOR
[2019-09-23 07:16] LABS: INR 1.68 (0.85-1.17); PROTIME 19.2 SECONDS (11.6-15.0)
[2019-09-23 07:32] LABS: ALBUMIN 3.1 g/dL (3.4-5.0); ALKALINE PHOSPHATASE 131 U/L (46-116); ALT (SGPT) 16 U/L (10-68); BILIRUBIN - TOTAL 0.41 mg/dL (0.2-1.3); CALC OSMOLALITY 281 mosm/kg (275-300); CALCIUM 8.4 mg/dL (8.5-10.1); CARBON DIOXIDE 29.8 mmol/L (21.0-32.0); CHLORIDE - SERUM 104 mmol/L (98-107); CREATININE - SERUM 0.7 mg/dL (0.6-1.3); GLUCOSE 81 mg/dL (74-106); POTASSIUM - SERUM 3.2 mmol/L (3.5-5.1); PROTEIN - SERUM 6.1 g/dL (6.4-8.2); SODIUM 142 mmol/L (136-145); eGFR NON AFRICAN AMERICAN 84 mL/min (90-120)
[2019-09-23 07:34] LABS: UREA NITROGEN 12 mg/dL (7-18)
[2019-09-23 08:12] VITALS: BP 127/86
[2019-09-23 13:33] VITALS: BP 129/64
[2019-09-23 16:23] VITALS: BP 130/62
--- NOTE | 2019-09-23 16:53 | NUR ---
PT C/O PAIN OF 7 0F 10 IN RIGHT LOWER QUADRANT
[2019-09-23 19:49] VITALS: BP 121/47
--- NOTE | 2019-09-23 22:01 | NUR ---
ATTEMPTED TO OBTAIN STOOL SAMPLE BUT PATIENT HAD MIXED WITH URINE.
[2019-09-24] VITALS: BP 125/56
[2019-09-24 04:00] VITALS: BP 119/72
--- NOTE | 2019-09-24 04:26 | NUR ---
I have reviewed this patient and I concur with the Shift Assessment completed by the Licensed Practical Nurse today this shift.
[2019-09-24 06:16] LABS: BASOPHILS 0 % (0-2); HEMATOCRIT 29.2 % (36.0-48.0); HEMOGLOBIN 9.1 g/dL (12-16); IMMATURE GRANULOCYTES 7.3 % (0-5); LYMPHOCYTES 23.3 % (15-50); MCH 30.7 pg (26.0-34.0); MCHC 31.2 g/dL (31.0-37.0); MCV 98.6 fL (80.0-100.0); MEAN PLATELET VOLUME 9.5 fL (7.4-10.4); MONOCYTES 13.3 % (2-11); NEUTROPHILS 55.1 % (40-80); PLATELET COUNT 200 10x3/uL (130-400); RBC 2.96 10x6/uL (4.00-5.40); RDW 14.6 % (11.5-14.5)
[2019-09-24 06:33] LABS: INR 1.51 (0.85-1.17); PROTIME 17.6 SECONDS (11.6-15.0)
[2019-09-24 06:47] LABS: ALBUMIN 2.8 g/dL (3.4-5.0); ALKALINE PHOSPHATASE 112 U/L (46-116); ALT (SGPT) 13 U/L (10-68); BILIRUBIN - TOTAL 0.51 mg/dL (0.2-1.3); CALC OSMOLALITY 278 mosm/kg (275-300); CALCIUM 8.3 mg/dL (8.5-10.1); CARBON DIOXIDE 28.5 mmol/L (21.0-32.0); CHLORIDE - SERUM 105 mmol/L (98-107); CREATININE - SERUM 0.6 mg/dL (0.6-1.3); GLUCOSE 98 mg/dL (74-106); PROTEIN - SERUM 5.8 g/dL (6.4-8.2); SODIUM 141 mmol/L (136-145); eGFR NON AFRICAN AMERICAN > 90 mL/min (90-120)
[2019-09-24 06:48] LABS: UREA NITROGEN 8 mg/dL (7-18)
--- NOTE | 2019-09-24 07:15 | NUR ---
PATIENT CONFUSED AT TIMES. RESTING IN BED, EYES OPEN. UP WITH ASSIST. SLING TO LEFT ARM. LEGALLY BLIND AND UNALAKLEET. NO C/O PAIN. NO S/S OF ACUTE DISTRESS NOTED. ON 2L O2, NC. IV TO RIGHT AC, NS INFUSING @ 30ML/HR. SITE PATENT WITHOUT REDNESS OR SWELLING. ACHS. DENIES ANY NEEDS AT THIS TIME. CALL LIGHT IN REACH. WILL CONTINUE TO MONITOR.
[2019-09-24 08:19] VITALS: BP 123/78
--- NOTE | 2019-09-24 08:46 | NUR ---
PATIENT C/O PAIN TO LEFT ARM 08/01, GAVE NORCO FOR PAIN. NO S/S OF ACUTE DISTRESS NOTED. WILL CONTINUE TO MONITOR.
--- NOTE | 2019-09-24 10:30 | NUR ---
I have reviewed this patient and I concur with the Shift Assessment completed by the Licensed Practical Nurse today this shift.
[2019-09-24 12:40] VITALS: BP 128/56
--- NOTE | 2019-09-24 15:28 | NUR ---
PATIENT C/O PAIN 5/10 IN LEFT ARM, GAVE NORCO FOR PAIN. NO S/S OF ACUTE DISTRESS NOTED. DENIES ANY NEEDS AT THIS TIME. CALL LIGHT IN REACH. WILL CONTINUE TO MONITOR.
[2019-09-24 16:31] VITALS: BP 127/51
--- NOTE | 2019-09-24 18:37 | NUR ---
STOOL SAMPLE COLLECTED AND SENT TO LAB.
--- NOTE | 2019-09-24 18:40 | NUR ---
PATIENT IN BED WITH IV INTACT. ICE PACK GIVEN. PATIENT PLACING ON FACE. NO COMPLAINTS AT THIS TIME. CALL IGHT WITHIN REACH.
[2019-09-24 20:47] VITALS: BP 120/60
--- NOTE | 2019-09-25 00:13 | NUR ---
PT RESTING IN BED. EYES CLOSED. NO SIGNS OF DISTRESS. BREATHING EVEN AND UNLABORED. IV SITE RT AC DRESSING CLEAN DRY AND INTACT. NO SIGNS OF INFECTION. LUNG SOUNDS DIMINISHED. BOWEL SOUNDS ACTIVE. LT ARM SLING. BRUISES LT AND RT ARMS. LT ARM SLING. NO LOWER LEG SWELLING PRESENT. WILL CONTINUE PLAN OF CARE. CALL LIGHT IN REACH. BED LOWERED AND LOCKED. BED RAILS UPX2. PHILIPPE ALARM ON.
[2019-09-25 00:58] VITALS: BP 116/70
--- NOTE | 2019-09-25 01:08 | NUR ---
I have reviewed this patient and I concur with the Shift Assessment completed by the Licensed Practical Nurse today this shift.
[2019-09-25 05:55] VITALS: BP 116/60
[2019-09-25 07:43] LABS: BASOPHILS 0 % (0-2); EOSINOPHILS 0.6 % (0-7); HEMATOCRIT 29.9 % (36.0-48.0); HEMOGLOBIN 9.4 g/dL (12-16); IMMATURE GRANULOCYTES 4.4 % (0-5); LYMPHOCYTES 28.1 % (15-50); MCH 30.5 pg (26.0-34.0); MCHC 31.4 g/dL (31.0-37.0); MCV 97.1 fL (80.0-100.0); MONOCYTES 13.2 % (2-11); NEUTROPHILS 53.7 % (40-80); PLATELET COUNT 220 10x3/uL (130-400); RBC 3.08 10x6/uL (4.00-5.40); RDW 14.7 % (11.5-14.5); WBC 3.6 10x3/uL (4.8-10.8)
[2019-09-25 07:56] LABS: ALBUMIN 2.9 g/dL (3.4-5.0); ANION GAP 8.6 mmol/L (8-16); BILIRUBIN - TOTAL 0.43 mg/dL (0.2-1.3); CALCIUM 8.7 mg/dL (8.5-10.1); CARBON DIOXIDE 31.9 mmol/L (21.0-32.0); CREATININE - SERUM 0.8 mg/dL (0.6-1.3); POTASSIUM - SERUM 3.5 mmol/L (3.5-5.1); PROTEIN - SERUM 6.1 g/dL (6.4-8.2)
--- NOTE | 2019-09-25 08:00 | NUR ---
ALERT AND ORIENTED. LUNGS CLEAR BILATERALLY. HEART SOUNDS S1 AND S2 HEARD IN ALL PABLO. BOWEL SOUNDS ACTIVE X 4. SKIN INTACT WITHOUT REDNESS. DENIES PAIN. DENIES NEEDS. IV TO RIGHT AC PATENT WITHOUT REDNESS. BED LOW. FALL PRECAUTIONS IN PLACE. CALL CARDENAS AND PERSONAL ITEMS IN REACH. WILL CONTINUE TO MONITOR.
[2019-09-25 08:51] VITALS: BP 105/50
--- NOTE | 2019-09-25 10:00 | NUR ---
RESTING IN BED. DENIES NEEDS. WILL CONTINUE TO MONITOR.
[2019-09-25] MEDS ORDERED: FLAGYL500 MG PO (12:28)
[2019-09-25] MEDS ORDERED: MIRALAX17 GM PO (12:28)
[2019-09-25] MEDS ORDERED: LEVAQUIN750 MG PO (12:28)
[2019-09-25 12:30] VITALS: BP 118/48
--- NOTE | 2019-09-25 13:22 | NUR ---
ASSISTED BACK TO BED. WARM BLANKET GIVEN PER REQUEST. WILL CONTINUE TO MONITOR.
--- NOTE | 2019-09-25 14:10 | NUR ---
PATIENT NOTIFIED INSPECTOR AND MENDER WANTS TO COMMIT SUICIDE. STATES DOES NOT HAVE PLAN YET BUT "TRYING TO THINK OF ONE." CALLED LONG TERM. STATES REDO SUICIDE SCREEN AND CALL [employer] IF INDICATED. SCREEN COMPLETED. SCORE 3. WILL CALL [employer].
--- NOTE | 2019-09-25 14:12 | NUR ---
ALUM MIXER NOTIFIED PATIENT STATES GOING TO GO HOME AND COMMIT SUICIDE AND SCORED 3 ON ASSESSMENT. STATES WILL HAVE COME DO ASSESSMENT.
--- NOTE | 2019-09-25 14:16 | MORECARE ---
CASE MANAGEMENT DISCHARGE SUMMARY PATIENT: EMMETT OLIVIA UNIT: [id number] ADM DATE: 09/22/19 AGE: 84 : 35 SEX: F ROOM/BED: D.2215 AUTHOR: JO BARKER PHYSICIAN: REFERRING PHYSICIAN: DANE WILSON DO DATE OF SERVICE: 09/25/19 Discharge Plan Patient Name: EMMETT OLIVIA [facility] [facility] 1935 Planned Disposition: Assisted Living Anticipated Discharge Date: Discharge Date: Expected LOS: Initial Reviewer: [email or web address] Initial Review Date: 09/22/2019 Generated: 09/25/19 3:16 pm DCPIA - Discharge Planning Initial Assessment Updated by [email or web address]: Vashti Beasley on 09/25/19 2:07 pm * Is the patient Alert and Oriented? Yes * How many steps to enter\exit or inside your home? * PCP Maria M Stark APN * Pharmacy [place] * Preadmission Environment Assisted Living * Facility Name [facility] * ADLs Partial Dependent * Partial ADLs (Assistance needed) Dressing Medication Management Toileting * Equipment Hospital Bed Rolling Walker Shower Chair Walker Wheelchair * List name and contact numbers for known caregivers / representatives who currently or will assist patient after discharge: roberto (daughter) [phone] * Verbal permission to speak to the caregivers and representatives has been obtained from the patient. Yes * Community resources currently utilized Assisted Living Home Health * Please name any agencies selected above. [facility] * Additional services required to return to the preadmission environment? Yes * Has this patient been hospitalized within the prior 30 days at any hospital? Yes Patient Name: EMMETT OLIVIA Page [id number] at 1416 All edits/amendments must be made on the electronic document DICTATION DATE: 09/25/191414 CHALK TESTER: DUONG 09/25/191414 RPT#: [id number] DC DATE: STATUS: ADM IN [facility] [address] [place] [address] END OF REPORT
--- NOTE | 2019-09-25 14:24 | MORECARE ---
CASE MANAGEMENT DISCHARGE SUMMARY PATIENT: EMMETT OLIVIA UNIT: [id number] ADM DATE: 09/22/19 AGE: 84 : 35 SEX: F ROOM/BED: D.2215 AUTHOR: JO BARKER PHYSICIAN: REFERRING PHYSICIAN: DANE WILSON DO DATE OF SERVICE: 09/25/19 Discharge Plan Patient Name: EMMETT OLIVIA Facility: [facility]:[place] : 1935 Planned Disposition: Assisted Living Anticipated Discharge Date: Discharge Date: Expected LOS: Initial Reviewer: [id number] Initial Review Date: 09/22/2019 Generated: 09/25/19 3:24 pm Comments DCP- Discharge Planning Updated by [id number]: Vashti Beasley on 09/25/19 1:[address] Patient Name: EMMETT OLIVIA Admission Status: ER Accout number: [id number] Admission Date: 09-22-2019 : 1935 Admission Diagnosis: Attending: DANE WILSON Current LOS: 3 Anticipated DC Date: Planned Disposition: Assisted Living Primary Insurance: MEDICARE A & B Discharge Planning Comments: CM met with patient to assess discharge planning needs. Patient lives at [facility] where she is partially dependent on her care. She need help with dressing, medications, toileting. She stated that she has home health with [facility] and has a hospital bed, walker, wheelchair, shower chair and walker at home. She is upset that no one is communicating with her. She stated that she is not getting the information that she needs. She stated that she "just wanted to kill herself". I questioned her if she had a plan, she stated that a "gun would be too messy, poison would hurt too bad, I trying to think of one" She did not know why her stomach is hurting and she is not getting the answers that she needs. She does not think anyone cares here, I reassured her that we do. I have talk Lorie her nurse about the patients comment. She seems to me frustrated with her care and feels like no one is listening to her. She also made the comment that her kids do not like if when she talks this way. I spoke with her about Hospice and she said that "she is not dying now" She also stated that maybe she would "just go to an open field and ". Lorie has undated the screen and called detention. Robbi ESPINO also notified Meter Reader Inspector: Vashti Beasley DCPIA - Discharge Planning Initial Assessment Updated by [email or web address]: Vashti Beasley on 09/25/19 2:07 pm * Is the patient Alert and Oriented? Yes * How many steps to enter\\exit or inside your home? * PCP Maria M Stark APN * Pharmacy [place] * Preadmission Environment Assisted Living * Facility Name [place] * ADLs Partial Dependent * Partial ADLs (Assistance needed) Dressing Medication Management Toileting * Equipment Hospital Bed Rolling Walker Shower Chair Walker Wheelchair * List name and contact numbers for known caregivers / representatives who currently or will assist patient after discharge: roberto (daughter) [phone] * Verbal permission to speak to the caregivers and representatives has been obtained from the patient. Yes * Community resources currently utilized Assisted Living Home Health * Please name any agencies selected above. [facility] * Additional services required to return to the preadmission environment? Yes * Has this patient been hospitalized within the prior 30 days at any hospital? Yes Last DP export: 09/25/19 1:16 p Patient Name: EMMETT OLIVIA Page [id number] at 1424 All edits/amendments must be made on the electronic document DICTATION DATE: 09/25/191423 AIRLINE CAPTAIN: DUONG 09/25/191423 RPT#: [id number] DC DATE: STATUS: ADM IN [facility] [address] [place] [address] END OF REPORT
--- NOTE | 2019-09-25 14:40 | NUR ---
PSYCH NURSE IN ROOM EVALUATING.
--- NOTE | 2019-09-25 15:49 | NUR ---
PATIENT SEEN BY PSYCH NURSE. QUALIFIES FOR [facility]. AGREES TO BE ADMITTED TO [facility] FLOOR. SPOKE WITH DR MARQUEZ WHO STATES WILL AMMEND DISCHARGE TO DISCHARGE TO [facility].
--- NOTE | 2019-09-25 15:50 | NUR ---
DR MONGE NOTIFIED AND SITTER ORDERED. SITTER AT BEDSIDE. NOTIFIED CHARGE NURSE AND ATTENDING IN REGARDS TO ASSESSMENT FINDINGS. RESOURCES GIVEN TO PATIENT AND SAFETY PLAN INITIATED.
--- NOTE | 2019-09-25 16:12 | NUR ---
REPORT GIVEN TO SHEEP KILLER WHO IS STILL SITTING WITH PATIENT ON FLOOR. DENIES FURTHER QUESTIONS. BLOOD SUGAR 155. PATIENT REFUSES COVERAGE. IV REMOVED FROM [facility] WITH TIP INTACT PER PSYCH NURSE REQUEST. STATES PATIENT WILL NOT NEED IN PSYCH. WAITIING DISCHARGE PAPERWORK.
[2019-09-25 16:21] VITALS: BP 124/52
--- NOTE | 2019-09-25 16:34 | NUR ---
DISCHARGE EDUCATION PROVIDED BOTH WRITTEN AND VERBAL. VERBALIZED UNDERSTANDING. DENIES FURTHER QUESTIONS. PATIENT DISCHARGED TO [facility] WITH ALL BELONGINGS. DAUGHTER JENNIFER MADE AWARE OF SITUATION AND PATIENT DISCHARGE TO [facility] PER PATIENT REQUEST.
[2019-09-27 17:08] LABS: OVA + PARASITE EXAM Final report (())
--- NOTE | 2019-09-28 09:10 | MORECARE ---
CASE MANAGEMENT DISCHARGE SUMMARY PATIENT: EMMETT OLIVIA UNIT: [id number] ADM DATE: 09/22/19 AGE: 84 : 35 SEX: F ROOM/BED: D.7705 AUTHOR: JO BARKER PHYSICIAN: REFERRING PHYSICIAN: DANE WILSON DO DATE OF SERVICE: 09/28/19 Discharge Plan Patient Name: EMMETT OLIVIA Facility: [facility]:[place] : 1935 Planned Disposition: Assisted Living Anticipated Discharge Date: Discharge Date: 09/25/2019 Expected LOS: Initial Reviewer: [email or web address] Initial Review Date: 09/22/2019 Generated: 09/28/19 10:10 am Comments DCP- Discharge Planning Updated by [email or web address]: Vashti Beasley on 09/25/19 1:[address] Patient Name: EMMETT OLIVIA Admission Status: ER Accout number: [id number] Admission Date: 09-22-2019 : 1935 Admission Diagnosis: Attending: DANE WILSON Current LOS: 3 Anticipated DC Date: Planned Disposition: Assisted Living Primary Insurance: MEDICARE A & B Discharge Planning Comments: CM met with patient to assess discharge planning needs. Patient lives at [facility] where she is partially dependent on her care. She need help with dressing, medications, toileting. She stated that she has home health with [facility] and has a hospital bed, walker, wheelchair, shower chair and walker at home. She is upset that no one is communicating with her. She stated that she is not getting the information that she needs. She stated that she "just wanted to kill herself". I questioned her if she had a plan, she stated that a "gun would be too messy, poison would hurt too bad, I trying to think of one" She did not know why her stomach is hurting and she is not getting the answers that she needs. She does not think anyone cares here, I reassured her that we do. I have talk Lorie her nurse about the patients comment. She seems to me frustrated with her care and feels like no one is listening to her. She also made the comment that her kids do not like if when she talks this way. I spoke with her about Hospice and she said that "she is not dying now" She also stated that maybe she would "just go to an open field and ". Lorie has undated the screen and called skilled nursing. Robbi ESPINO also notified Regional Merchandising Manager: Vashti Beasley DCPIA - Discharge Planning Initial Assessment Updated by [id number]: Vashti Beasley on 09/25/19 2:07 pm * Is the patient Alert and Oriented? Yes * How many steps to enter\\exit or inside your home? * PCP Maria M Stark APN * Pharmacy [facility] * Preadmission Environment Assisted Living * Facility Name [place] * ADLs Partial Dependent * Partial ADLs (Assistance needed) Dressing Medication Management Toileting * Equipment Hospital Bed Rolling Walker Shower Chair Walker Wheelchair * List name and contact numbers for known caregivers / representatives who currently or will assist patient after discharge: roberto (daughter) [phone] * Verbal permission to speak to the caregivers and representatives has been obtained from the patient. Yes * Community resources currently utilized Assisted Living Home Health * Please name any agencies selected above. [facility] * Additional services required to return to the preadmission environment? Yes * Has this patient been hospitalized within the prior 30 days at any hospital? Yes Last DP export: 09/25/19 1:24 p Patient Name: EMMETT LOIVIA Page 65313 at 0910 All edits/amendments must be made on the electronic document DICTATION DATE: 09/28/19909 LEAD ARCHITECT: DUONG 09/28/19909 RPT#: [id number] DC DATE:09/25/19 STATUS: DIS IN [facility] [address] [place] [address] END OF REPORT
== END 2019-09-25 16:39 | disposition short-term general hospital (02) | DRG 391 ==
LOC: D.ER 10:10 → D.MS 13:05
PROVIDERS: Family Medicine; ADMIT Family Medicine; ATTEND Family Medicine
DX: K52.9 Noninfective gastroenteritis and colitis, unspecified (principal); J18.9 Pneumonia, unspecified organism; R45.851 Suicidal ideations; E86.0 Dehydration; Z91.81 History of falling; R55 Syncope and collapse; D64.9 Anemia, unspecified; E87.6 Hypokalemia; E83.42 Hypomagnesemia; E11.40 Type 2 diabetes mellitus with diabetic neuropathy, unspecified; E11.65 Type 2 diabetes mellitus with hyperglycemia; I11.0 Hypertensive heart disease with heart failure; I48.91 Unspecified atrial fibrillation; M19.90 Unspecified osteoarthritis, unspecified site; I25.10 Atherosclerotic heart disease of native coronary artery without angina pectoris; F32.9 Major depressive disorder, single episode, unspecified; Z79.01 Long term (current) use of anticoagulants; Z85.3 Personal history of malignant neoplasm of breast; E78.5 Hyperlipidemia, unspecified; I50.9 Heart failure, unspecified; H54.8 Legal blindness, as defined in USA; H91.90 Unspecified hearing loss, unspecified ear

== ENCOUNTER 2019-09-25 17:11 | Inpatient (IN) | payer MEDICARE, BC ==
[~2019-09-25] VITALS: Ht 154.9 cm; Wt 66.9 kg
--- NOTE | 2019-09-25 17:05 | NUR ---
RECEIVED PATIENT TO UNIT FROM MED SURG UNIT. PATIENT ALERT, CALM, COOPERATIVE, AMBULATORY WITH ASSIST, ALERT, ORIENTED X 3. PATIENT STATED THAT SHE SAW NO REASON FOR LIVING SINCE SHE LIVES WITH CHRONIC PAIN. PATIENT HAD MADE SUICIDAL STATEMENTS WHILE ON MED/SURG. PATIENT STATES THAT SHE DOES BELIEVE THAT SUICIDE IS WRONG, BUT SEES HER FUTURE BLEAK. ADMISSION WT OBTAINED AND VITAL SIGNS MEASURED. PATIENT ASSISTED TO DINING ROOM TO JOIN PEERS FOR SUPPER. PATIENT APPEARS TO HAVE GOOD FAMILY SUPPORT FROM HER THREE DAUGHTERS.
[~2019-09-25 17:11] MED LIST changes: +FLAGYL500 MG PO; +LEVAQUIN750 MG PO
[2019-09-25 21:37] VITALS: BP 128/84
[2019-09-25 23:16] VITALS: BP 128/84; BMI 27.0
--- NOTE | 2019-09-26 00:02 | NUR ---
RECEIVED IN BEDROOM. ASSIST TO BATHROOM. CALM AND COOPERATIVE WITH CARE AND ASSESSMENT. ENCOURAGE TO EXPRESS NEEDS. NO STATEMENTS OF SELF HARM VOICED AT THIS TIME. ENCOURAGE TO EXPRESS NEEDS. RESTING IN BED WITH EYES CLOSED AT THIS TIME. CONTINUE PLAN OF CARE
--- NOTE | 2019-09-26 04:15 | NUR ---
O2 SAT 89%. PLACED ON O2 VIA NC @2L. PT TOLERATED WELL WILL CONTINUE TO MONITOR
--- NOTE | 2019-09-26 04:46 | NUR ---
PT O2 SAT 97%. HOB AT 35 DEGREES. NO SIGNS OF RESPIRATORY DISTRESS. PT RESTING CALMLY IN BED WITH EYES CLOSED. WILL CONTINUE TO MONITOR.
[2019-09-26 08:00] VITALS: BP 141/63
[2019-09-26 08:01] LABS: CHOL - HDL RATIO 1.9 ratio (2.3-4.1); LDL-HDL RATIO 0.6 ratio (1.5-3.5); THYROID STIMULATING HORMONE 1.45 uIU/mL (0.36-3.74)
--- NOTE | 2019-09-26 14:35 | NUR ---
[place] 5/325 MG ADMIN PO FOR ABD. PAIN 03/31.
--- NOTE | 2019-09-26 15:05 | NUR ---
PATIENT CALM, COOPERATIVE, PLEASANT MOOD. NO SUICIDAL STATEMENTS MADE. MEDS ADMIN PER ORDERS WITH COMPLETE MED COMPLIANCE NOTED. NO ADVERSE BEHAVIORS NOTED. CONT POC DIRECTED.
--- NOTE | 2019-09-26 15:07 | NUR ---
PATIENT DENIES FURTHER ABD PAIN. MED EFFECTIVE.
[2019-09-26 15:48] VITALS: Ht 154.9 cm; Wt 66.9 kg
[2019-09-26 20:00] VITALS: BP 141/62
--- NOTE | 2019-09-26 21:59 | NUR ---
RECEIVED IN DAYROOM. WATCHING TV. CALM AND COOPERATIVE WITH CARE AND ASSESSMENT. DENIES THOUGHTS OF SELF HARM. STATED SHE WAS NEVER SUICIDAL AND ONLY SAID THAT TO GET ATTENTION. REDIRECT AND REORIENT NEEDED. RESTING IN BED WITH EYES OPEN AT THIS TIME. CONTINUE PLAN OF CARE.
[2019-09-27 08:42] VITALS: BP 144/68
[2019-09-27 10:54] LABS: INR 2.15 (0.85-1.17); PROTIME 23.3 SECONDS (11.6-15.0)
--- NOTE | 2019-09-27 12:02 | PSY ---
PATIENT NAME:EMMETT OLIVIA MEDICAL RECORD: [id number] : 35 LOCATION:[facility] ADMISSION DATE: 09/25/19 ACCOUNT: [id number] PSYCHIATRIC EVALUATION DATE OF EVALUATION: 09/26/19 IDENTIFYING DATA: The patient is 84 years old and she is admitted to the hospital on a voluntary basis. CHIEF COMPLAINT: "I just want to ." HISTORY OF PRESENT ILLNESS: The patient was transferred to the behavioral unit yesterday. She had initially been on the medical floor because of abdominal pain and pneumonia. She also had recently broken her left humerus. Apparently, the abdominal pain is chronic and she is frustrated because no one can find out what is wrong. When she was told she was being discharged, she made suicidal statements and the nursing executive for the behavioral unit went up and talked with her and she made those statements to her as well. I was contacted and agreed to admit the patient. On interview today, she is telling me that she wants to , but she is afraid to try to hurt herself because she knows it is a sin and she is a Yazdanism woman. She tells me in a fair amount of detail that she is very unhappy because she is old, she is blind, she is hard of hearing, she is unable to care for herself and really has no close family or friends or meaning or purpose to her life. She endorses numerous neurovegetative depressive symptoms. She denies psychotic symptoms and thoughts of harming others. PAST MEDICAL HISTORY: Significant for macular degeneration with almost total blindness. The patient is also somewhat hard of hearing. She has diabetes, hypertension, congestive heart failure, atrial fibrillation, coronary artery disease, hyperlipidemia, and anemia. She has also had breast cancer with bilateral mastectomies. She has had gallbladder surgery, kyphoplasty. She has had cardiac stents placed and surgery for abdominal adhesions. PAST PSYCHIATRIC HISTORY: Significant for depression, which has been present for 25 years since the of her . She is taking Prozac and takes it faithfully, but it does not appear to be helping. FAMILY HISTORY: Significant for cancer and coronary artery disease. ALLERGIES: MORPHINE, OXYCODONE, PENICILLIN, AND NITROFURANTOIN. MEDICATIONS: Include Coumadin, Lasix, insulin, Flagyl, Levaquin, hydrocodone. SOCIAL HISTORY: The patient smoked many years ago, but does not do so now. She has no history of drug or alcohol abuse. She lives in an assisted living center. Her when she was 58 and he was 60. She does have 3 adult children, many grandchildren and even some great grandchildren. She is a retired nurse. She generally has functioned well socially and occupationally. MENTAL STATUS EXAMINATION: The patient is awake, alert and oriented to person, place, time and situation. Her mood is depressed. Her affect is constricted. Thought processes are circumstantial. Memory, concentration, and abstraction abilities are moderately impaired and she denies any intent to harm herself or others as well as any suicidal thoughts. ASSETS: Supportive family members. LIABILITIES: Limited insight. DIAGNOSTIC IMPRESSION: AXIS I: Major depressive episode, severe, recurrent without psychotic features. AXIS II: None. AXIS III: Pneumonia, osteoarthritis, hypertension, diabetes, coronary artery disease, COPD, blindness. AXIS IV: Moderate. AXIS V: Global assessment of functioning is 35. PLAN: At this time, the patient is admitted to the behavioral unit secondary to depressive symptoms with suicidal thoughts. She will be comprehensively evaluated and treated with both mood stabilizing and memory enhancing medications. Her long-term prognosis is guarded. TRANSINT:[id number] Voice Confirmation ID: [id number] DOCUMENT ID: [id number] ESTEFANIA MONGE MD at 1202 CC: [id number] DICTATION DATE: 09/26/19 1311 VETERANS SERVICES SPECIALIST: 09/26/19 1328 ADM IN [place] [id number] [place] [address]
--- NOTE | 2019-09-27 21:41 | NUR ---
PATIENT RECEIVED IN DAYROOM, ORIENTED TO PERSON, PLACE, TIME AND SITUATION. SHE IS LEGALLY BLIND AND NEEDS HELP WITH ADL'S, SHE IS COMPLIANT WITH MEDS, NO ADVERSE REACTION NOTED. SHE IS ABLE TO MAKE NEEDS KNOWN.
[2019-09-27 23:46] VITALS: BP 92/42
--- NOTE | 2019-09-28 08:10 | NUR ---
B) The patient is awake and she's alert, she is sitting in her w/c, she is wearing her sling, she denies pain. She is pleasant, legally blind and [place]. She has not mentioned being suicidal at this time. Her affect is flat. I) Provide prescribed medications. R) The patient is compliant with meds. P) Continue POC.
--- NOTE | 2019-09-28 09:00 | NUR ---
The patient c/o pain in her left arm, rates pain 7-8, will provide [place] 5 mg now.
[2019-09-28 09:24] VITALS: BP 133/67
--- NOTE | 2019-09-28 11:31 | NUR ---
NUTRITION F/U PT TOLERATING ADA DIET WITH ~50% INTAKE RECENT MEALS. BM RECORDED 09/27/19. WT DOWN FROM ADMIT WT ~3.5#. NOTE CURRENT WT IS SAME A 09/22/19. WILL CONTINUE TO PROVIDE DIET, GLUCERNA. MONITOR PO INTAKE AND WT. FOLLOWING
--- NOTE | 2019-09-28 11:57 | NUR ---
The patient c/o pain d/t sitting in the w/c and she requested a cushion. provided a anita mat. The patient said "That feels so omid better."
--- NOTE | 2019-09-28 13:51 | PN ---
PATIENT:EMMETT OLIVIA MEDICAL RECORD: [id number] LOCATION:[facility] ADMISSION DATE: 09/25/19 PROGRESS NOTE DATE OF SERVICE: 09/27/2019 SUBJECTIVE: The patient's case was discussed with staff. She has no new complaint. OBJECTIVE: The patient denies intent to harm herself or others. She is in good behavioral control, although she is not happy about the schedule that the patients are required to follow here. ASSESSMENT: No change in diagnoses. PLAN: The patient's Prozac will be tapered slightly and the Effexor will be raised a little. The plan is to taper her off of the Prozac and gradually increase the dose of the Effexor. TRANSINT:[id number] Voice Confirmation ID: [id number] DOCUMENT ID: [id number] ESTEFANIA MONGE MD at 1351 CC: [id number] DICTATION DATE: 09/27/19 1232 BAGGAGE AGENT SUPERVISOR: 09/27/19 1246 ADM IN [place] [id number] [place] [address]
--- NOTE | 2019-09-28 19:23 | NUR ---
PATIENT RECEIVED IN DAYROOM, SITTING IN WHEELCHAIR INTERACTING WITH OTHERS, SHE IS ALERT AND ORIENTED TO SELF, TIME, PLACE AND ORIENTATION. SHE DENIES BEING SUICIDIAL AND CAN MAKE ALL OF HER NEEDS KNOWN. COMPLIANT WITH MEDS, WITH NO ADVERSE SIDE EFFECTS. HER AFFECT IS GOOD. WILL CONTINUE TO MONITOR
[2019-09-28 22:12] VITALS: BP 116/45
--- NOTE | 2019-09-29 07:24 | NUR ---
B) The patient is awake and alert she is pleasant, she denies being depressed or suicidal, although, she admits she gets down, but then she goes back up. She self propels in the w/c and she has a sling on her left arm. She is also sitting on a anita mat. She is oriented x 3. She is legally blind and [place], but communicates well with staff and peers. I) Provide prescribed meds. R) The patient is compliant with meds and unit milieu. P) Continue POC.
--- NOTE | 2019-09-29 08:08 | NUR ---
The patient c/o pain in her left arm and she rates the pain 9/10. Provided [place] 5/325 mg PO.
[2019-09-29 08:43] LABS: INR 2.52 (0.85-1.17); PROTIME 26.4 SECONDS (11.6-15.0)
--- NOTE | 2019-09-29 09:42 | NUR ---
The patient says her pain is 4/10 now.
[2019-09-29 10:52] VITALS: BP 118/68
[2019-09-29 12:27] LABS: APPEARANCE HAZY (CLEAR); BILIRUBIN NEGATIVE (NEGATIVE); COLOR YELLOW (YELLOW); GLUCOSE NEGATIVE (NEGATIVE); KETONE NEGATIVE (NEGATIVE); NITRITE NEGATIVE (NEGATIVE); PROTEIN NEGATIVE (NEGATIVE); UROBILINOGEN NORMAL (NORMAL)
--- NOTE | 2019-09-29 14:05 | PN ---
PATIENT:EMMETT OLIVIA MEDICAL RECORD: [id number] LOCATION:[facility] ADMISSION DATE: 09/25/19 PROGRESS NOTE DATE OF SERVICE: 09/28/2019 SUBJECTIVE: The patient's case was discussed with staff. She has no new complaint. OBJECTIVE: The patient is depressed and somewhat agitated. She strongly feels that no one is listening to her or paying attention to her needs, but at the same time, I am asking her what those needs and problems are. She focuses on the problems prior to coming to the behavioral unit, but then also is distressed that she cannot stay in the bed all day. I have explained the reasons why we do not allow patients to isolate in their rooms, but unfortunately she rejects this. I have observed her in the day room and have talked to the recreational therapist and she seems to be enjoying and participating in therapies and activities reasonably well. It is my opinion that she is depressed and I will continue to taper the Prozac down and to increase the dose of her Effexor. TRANSINT:[id number] Voice Confirmation ID: [id number] DOCUMENT ID: [id number] ESTEFANIA MONGE MD at 1405 CC: [id number] DICTATION DATE: 09/28/19 1605 TRANSMISSION TESTER: 09/29/19 0014 ADM IN [place] [address] [place] [address]
--- NOTE | 2019-09-29 15:22 | NUR ---
The patient c/o left arm pain and rates it 9/10, [place] 5/325 mg PO given now, will monitor.
[2019-09-29 20:30] VITALS: BP 107/77
--- NOTE | 2019-09-29 23:10 | NUR ---
B.) PT IS ALERT AND ORIENTED TO SELF, PLACE AND SITUATION. SHE IS ABLE TO MAKE HER NEEDS KNOWN AND IS PLEASANT WITH STAFF AND PEERS. SHE IS RECEIVED IN A WHEELCHAIR. I.) ASSIST WITH ADLS AND PROVIDED PM MEDICATIONS. R.) TOLERATED WELL. COMPLIANT WITH ALL MEDICATIONS. P.) CONTINUE PLAN OF CARE
[2019-09-30 08:00] VITALS: BP 101/57
--- NOTE | 2019-09-30 08:45 | NUR ---
B) The patient is awake and alert and she c/o pain in her left arm. She rates her pain 8/10. [place] 5/325 mg po given. She has a sling on her left arm, she is legally blind and requires some assistance. I) Provide prescribed meds. R) The patient is compliant with meds and unit milieu. P) Continue POC.
--- NOTE | 2019-09-30 12:13 | PN ---
PATIENT:EMMETT OLIVIA MEDICAL RECORD: [id number] LOCATION:[facility] ADMISSION DATE: 09/25/19 PROGRESS NOTE DATE OF SERVICE: 09/29/2019 SUBJECTIVE: The patient's case was discussed with staff. She has no new complaint. OBJECTIVE: The patient is in good behavioral control with limited insight about her condition. ASSESSMENT: Major depression. PLAN: The patient's Prozac will be discontinued. I am going to leave her Effexor at the dose it is at today. I anticipate she can be transitioned out of the hospital soon. I am reasonably convinced that she is not actively suicidal. Unfortunately, she is not eating very well. I think that is related to the depression. TRANSINT:[id number] Voice Confirmation ID: [id number] DOCUMENT ID: [id number] ESTEFANIA MONGE MD at 1213 CC: [id number] DICTATION DATE: 09/29/19 1424 ROCK DRILL OPERATOR: 09/29/19 1630 ADM IN [facility] [address] [place] [id number]
--- NOTE | 2019-09-30 17:35 | NUR ---
The patient c/o pain rates it 9/10 in her left arm. [place] 5/325 mg po given. Will monitor.
[2019-09-30 19:30] VITALS: BP 103/52
--- NOTE | 2019-10-01 01:21 | NUR ---
B.) PT IS ALERT AND ORIENTED TO SELF AND SITUATION. SHE IS ABLE TO ANTICIPATE HER OWN NEEDS. SHE USES A WHEELCHAIR AND IS PLEASANT WITH STAFF AND PEERS. SHE HAS A SLING ON HER LEFT SHOULDER. I.) PROVIDED PM MEDICATIONS. R.) COMPLIANT WITH ALL MEDICATIONS. P.) CONTINUE PLAN OF CARE
[2019-10-01 08:00] VITALS: BP 123/48
--- NOTE | 2019-10-01 09:34 | NUR ---
PT IS AWAKE AND ALERT. PT DENIES PAIN AT THIS TIME. CALM AND COOPERATIVE WITH ASSESSMENT. PRESCRIBED MEDS PROVIDED PER STAFF. MED COMPLIANT. PT IS BLIND, REQUIRES SOME ASSISTANCE. PT IS CALM AND PLEASANT THIS MORNING. PT LEFT ARM IS IN A SLING AT THIS TIME. PT DENIES ANY PAIN OR DISCOMFORT AT THIS TIME. FALL PRECAUTIONS IN PLACE. WILL CPOC.
--- NOTE | 2019-10-01 13:25 | NUR ---
PT REFUSED 1200 LASIX X 3.
[2019-10-01 20:00] VITALS: BP 116/55
--- NOTE | 2019-10-01 20:53 | PN ---
PATIENT:EMMETT OLIVIA MEDICAL RECORD: [id number] LOCATION:[facility] ADMISSION DATE: 09/25/19 PROGRESS NOTE DATE OF SERVICE: 09/30/2019 SUBJECTIVE: The patient's case was discussed with staff. She has no new complaint. OBJECTIVE: The patient is denying any thoughts of harming herself or others. She has no evidence of dementia or serious cognitive impairment. She will be treated with the Effexor and the dose will be increased to 75 mg twice daily. TRANSINT:[id number] Voice Confirmation ID: [id number] DOCUMENT ID: [id number] ESTEFANIA MONGE MD at 2053 CC: [id number] DICTATION DATE: 09/30/19 1259 LIP CUTTER: 09/30/19 1323 ADM IN [place] [id number]
--- NOTE | 2019-10-01 20:55 | NUR ---
RECEIVED IN HALLWAY OUTSIDE OF NURSES STATION. SITTING IN A RECLINING CHAIR. CALM AND COOPERATIVE WITH CARE AND ASSESSMENT. DENIES SELF HARM. ENCOURAGE TO EXPRESS NEEDS. RESTING IN BED WITH EYES CLOSED. CONTINUE PLAN OF CARE
[2019-10-01] MEDS ORDERED: EFFEXOR37.5 MG PO (21:14)
[2019-10-02 06:51] LABS: INR 2.87 (0.85-1.17); PROTIME 29.3 SECONDS (11.6-15.0)
[2019-10-02 09:16] VITALS: BP 126/56
--- NOTE | 2019-10-02 11:00 | NUR ---
PATIENT IS AWAKE AND ALERT TO PERSON AND PLACE. CALM AND COOPERATIVE WITH CARE AND ASSESSMENT. ADMINISTER PRESCRIBED MEDICATIONS. COMPLETELY COMPLIANT. NO BEHAVIORS NOTED. REDIRECT AND REORIENT NEEDED. CONT POC.
--- NOTE | 2019-10-02 15:38 | PN ---
PATIENT:EMMETT OLIVIA MEDICAL RECORD: [id number] LOCATION:[facility] ADMISSION DATE: 09/25/19 PROGRESS NOTE DATE OF SERVICE: 10/01/2019 SUBJECTIVE: The patient's case was discussed with staff. She has no new complaint. OBJECTIVE: The patient's mood has significantly improved and she has no thoughts of harming herself or others. ASSESSMENT: Major depression. PLAN: Brief supportive and educational interventions were made. The patient's long-term prognosis is guarded. I anticipate she can be transitioned out of the hospital soon. TRANSINT:[id number] Voice Confirmation ID: [id number] DOCUMENT ID: [id number] ESTEFANIA MONGE MD at 1538 CC: [id number] DICTATION DATE: 10/01/192104 STUDENT LOAN COUNSELOR: 10/02/19 0014 ADM IN [facility] [address] [place] [address]
[2019-10-02 23:24] VITALS: BP 140/67
--- NOTE | 2019-10-03 00:40 | NUR ---
RECEIVED IN [facility]. PATIENT STATES SHE WANTS HER O2 ON AT NIGHT. TOLD PATIENT HER O2 SAT WAS 98% AND SHE DIDNT NEED O2 AT THIS TIME. PATIENT DEMANDED THAT SHE BE GIVEM HER O2 BUT CONTINUES TO EXPLAIN TO HER THAT SHE WAS NOT GOING TO BE GIVEN O2 AT THAT SATURATION. PATIENT LATER WENT TO BED AND IS RESTING IN BED WITH EYES CLOSED AT THIS TIME. CONTINUE PLAN OF CARE
[2019-10-03 09:00] VITALS: BP 112/54
--- NOTE | 2019-10-03 10:46 | NUR ---
DR. MARIE NOTIFIED OF PT SLIPPING OUT W/C. NEURO CHECKS STARTED. NO NEW ORDERS NOTED. FAMILY NOTIFIED. HS NOTIIFED. WILL CONTINUE TO MONITOR FOR ANY CHANGES.
--- NOTE | 2019-10-03 11:38 | NUR ---
NORCO 5-325 MG PO GIVEN FOR LEVEL #8 LEFT SHOULDER PAIN.
--- NOTE | 2019-10-03 11:54 | PN ---
PATIENT:EMMETT OLIVIA MEDICAL RECORD: [id number] LOCATION:[facility] ADMISSION DATE: 09/25/19 PROGRESS NOTE DATE OF SERVICE: 10/02/2019 SUBJECTIVE: The patient's case was discussed with staff. She has no new complaint. OBJECTIVE: The patient is depressed, but not suicidal. She is going to be transitioned out of the hospital tomorrow. I had considered letting her go today, but have elected to watch her for one more day. ASSESSMENT: Major depression. PLAN: Current medicines have been reviewed. Supportive and educational interventions will be maintained. TRANSINT:[id number] Voice Confirmation ID: [id number] DOCUMENT ID: [id number] ESTEFANIA MONGE MD at 1154 CC: [id number] DICTATION DATE: 10/02/19 1643 FIRMWARE ENGINEER: 10/02/19 1928 ADM IN [facility] [address] [id number]
--- NOTE | 2019-10-03 12:00 | NUR ---
DISCHARGED TO [facility] VIA PRIVATE CAR WITH FAMILY. BELONGINGS COLLECTED AND GIVEN TO FAMILY. C-STARS COMPLETED.
--- NOTE | 2019-10-04 12:24 | PN ---
PATIENT:EMMETT OLIVIA MEDICAL RECORD: [id number] LOCATION:[facility] ADMISSION DATE: 09/25/19 PROGRESS NOTE DATE OF SERVICE: 10/03/2019 SUBJECTIVE: The patient's case was discussed with staff. She has no new complaint. OBJECTIVE: The patient has an euthymic mood and no thoughts of harming herself or others. ASSESSMENT: Major depression. PLAN: The patient will be transitioned back to the half-way today. Her long-term prognosis is guarded. Follow up will be with her primary care physician. TRANSINT:[id number] Voice Confirmation ID: [id number] DOCUMENT ID: [id number] ESTEFANIA MONGE MD at 1224 CC: [id number] DICTATION DATE: 10/03/19 1207 GLASS PULVERIZER EQUIPMENT OPERATOR: 10/03/19 1213 DIS IN 10/03/[id number] [place] [address]
--- NOTE | 2019-10-11 12:43 | DS ---
PATIENT:EMMETT OLIVIA :35 MEDICAL RECORD: [id number] DISCHARGE SUMMARY ADMISSION DATE: 09/25/19 DISCHARGE DATE: 10/03/19 IDENTIFYING DATA: The patient is 84 years old and she was admitted to the hospital on a voluntary basis secondary to depression. The patient was transferred here from the medical floor because of abdominal pain, pneumonia, and recently broken humerus. She made statements about wanting to hurt herself and then after doing so began backing away from those statements. She endorsed numerous neurovegetative depressive symptoms. HOSPITAL COURSE: The patient was hospitalized and fully evaluated from both a medical, psychological, and social standpoint. She was treated with antidepressant medications and showed significant improvement. DISCHARGE DIAGNOSES: AXIS I: Major depressive episode, severe, recurrent without psychotic features. AXIS II: None. AXIS III: Pneumonia, osteoarthritis, hypertension, diabetes, coronary artery disease, COPD, and blindness. AXIS IV: Moderate. AXIS V: Global assessment of functioning is 40. PLAN: At the time of discharge, the patient was in good behavioral control and had no evidence of acute or direct dangerousness to herself or others. Her mood had significantly improved and she had no suicidal thoughts since being admitted to the behavioral unit. She is to have followup with her primary care physician and outpatient mental health services. Her prognosis is guarded and will be entirely or almost entirely contingent upon medication compliance and following through with outpatient treatment recommendations. TRANSINT:[id number] Voice Confirmation ID: [id number] DOCUMENT ID: [id number] ESTEFANIA MONGE MD at 1243 CC: [id number] DICTATION DATE: 10/10/19 1530 RN TESTING: 10/11/19 0012 DIS IN 10/03/19 [facility] [address] [place] [address]
== END 2019-10-03 12:00 | disposition other institution (70) | DRG 885 ==
LOC: D.PSYCH 17:11
PROVIDERS: Family Medicine; ADMIT Psychiatry & Neurology Psychiatry; ATTEND Psychiatry & Neurology Psychiatry
DX: F33.2 Major depressive disorder, recurrent severe without psychotic features (principal); J18.9 Pneumonia, unspecified organism; M19.90 Unspecified osteoarthritis, unspecified site; E11.9 Type 2 diabetes mellitus without complications; I25.10 Atherosclerotic heart disease of native coronary artery without angina pectoris; J44.9 Chronic obstructive pulmonary disease, unspecified; H54.7 Unspecified visual loss; R53.1 Weakness; I11.0 Hypertensive heart disease with heart failure; I50.9 Heart failure, unspecified; R55 Syncope and collapse; E55.9 Vitamin D deficiency, unspecified; K59.00 Constipation, unspecified; E78.5 Hyperlipidemia, unspecified; E03.9 Hypothyroidism, unspecified; K52.9 Noninfective gastroenteritis and colitis, unspecified; Z85.3 Personal history of malignant neoplasm of breast

== ENCOUNTER 2020-01-14 18:17 | Emergency (ER) | payer MEDICARE, BC ==
[~2020-01-14] VITALS: Ht 154.9 cm; Wt 64.5 kg
[~2020-01-14 18:17] MED LIST changes: +EFFEXOR37.5 MG PO
[2020-01-14 18:23] VITALS: Ht 154.9 cm; Wt 64.5 kg
[2020-01-14 18:41] LABS: BASOPHILS 0 % (0-2); EOSINOPHILS 0.2 % (0-7); HEMATOCRIT 34.3 % (36.0-48.0); HEMOGLOBIN 11.2 g/dL (12-16); IMMATURE GRANULOCYTES 1.4 % (0-5); LYMPHOCYTES 27.1 % (15-50); MCH 30.6 pg (26.0-34.0); MCHC 32.7 g/dL (31.0-37.0); MCV 93.7 fL (80.0-100.0); MONOCYTES 10.6 % (2-11); NEUTROPHILS 60.7 % (40-80); PLATELET COUNT 184 10x3/uL (130-400); RBC 3.66 10x6/uL (4.00-5.40); WBC 4.4 10x3/uL (4.8-10.8)
[2020-01-14 18:53] LABS: APTT 47.4 SECONDS (22.8-39.4); INR 3.48 (0.85-1.17); PROTIME 34.3 SECONDS (11.6-15.0)
[2020-01-14 19:04] LABS: CALC OSMOLALITY 280 mosm/kg (275-300); CALCIUM 8.9 mg/dL (8.5-10.1); CARBON DIOXIDE 31.2 mmol/L (21.0-32.0); CHLORIDE - SERUM 103 mmol/L (98-107); CREATININE - SERUM 0.7 mg/dL (0.6-1.3); POTASSIUM - SERUM 3.6 mmol/L (3.5-5.1); SODIUM 140 mmol/L (136-145); UREA NITROGEN 10 mg/dL (7-18); eGFR NON AFRICAN AMERICAN 84 mL/min (90-120)
[2020-01-14 19:08] LABS: GLUCOSE 144 mg/dL (74-106)
[2020-01-14] MEDS ORDERED: COREG 3.1253.125 MG PO (19:19)
[2020-01-14 19:21] LABS: ALBUMIN 3.2 g/dL (3.4-5.0); ALKALINE PHOSPHATASE 142 U/L (30-120); ALT (SGPT) 17 U/L (10-68); BILIRUBIN - TOTAL 0.39 mg/dL (0.2-1.3); CKMB 0.7 U/L (0.0-3.6); CREATINE KINASE 60 UL (21-215); PRO BNP 6069 pg/mL (0-450); PROTEIN - SERUM 6.6 g/dL (6.4-8.2); TROPONIN-I 0.033 ng/mL (0.000-0.060)
[2020-01-14] MEDS ORDERED: HYDROCODON-ACE1 EA10 PO (19:21)
[2020-01-14] MEDS ORDERED: LINZESS145 MCG PO (19:21)
[2020-01-14] MEDS ORDERED: NITROSTAT0.4 MG SL (19:24)
[2020-01-14] MEDS ORDERED: COUMADIN6 MG PO (19:26)
[2020-01-14] MEDS ORDERED: COUMADIN3 MG (19:27)
[2020-01-14 20:47] VITALS: BP 126/49
== END 2020-01-14 20:47 ==
LOC: D.ER 18:17
PROVIDERS: Family Medicine
DX: I11.0 Hypertensive heart disease with heart failure (principal); I50.9 Heart failure, unspecified; E11.9 Type 2 diabetes mellitus without complications; I48.91 Unspecified atrial fibrillation; E78.5 Hyperlipidemia, unspecified; Z79.84 Long term (current) use of oral hypoglycemic drugs

== ENCOUNTER → 2020-03-10 10:07 | Outpatient (CLI) | payer MEDICARE, BC ==
[2020-01-14 18:23] VITALS: BMI 26.9
[~2020-03-10 10:07] MED LIST changes: +COREG 3.1253.125 MG PO; +COUMADIN3 MG; +HYDROCODON-ACE1 EA10 PO; +LINZESS145 MCG PO; +NITROSTAT0.4 MG SL
[2020-03-10 11:49] LABS: INR 1.41 (0.85-1.17); PROTIME 17.1 SECONDS (11.6-15.0)
== END | disposition home or self-care (01) ==
LOC: D.LABREF 10:07
PROVIDERS: ATTEND Nurse Practitioner Gerontology
DX: Z79.01 Long term (current) use of anticoagulants (principal); I82.409 Acute embolism and thrombosis of unspecified deep veins of unspecified lower extremity

== ENCOUNTER → 2020-04-29 20:52 | Outpatient (CLI) | payer MEDICARE, BC ==
[2020-01-14 18:23] VITALS: BMI 26.9
[2020-04-29 22:06] LABS: INR 1.83 (0.85-1.17)
== END | disposition home or self-care (01) ==
LOC: D.LABREF 20:52
PROVIDERS: ATTEND Nurse Practitioner Gerontology
DX: I48.91 Unspecified atrial fibrillation (principal); Z79.01 Long term (current) use of anticoagulants

== ENCOUNTER 2020-05-30 11:48 | Emergency (ER) | payer MEDICARE, BC ==
[~2020-05-30] VITALS: Ht 154.9 cm; Wt 62.7 kg
[2020-05-30 11:55] VITALS: Ht 154.9 cm; Wt 62.7 kg
[2020-05-30] MEDS ORDERED: ZYRTEC10 MG PO (11:59)
[2020-05-30] MEDS ORDERED: FUROSEMIDE40 MG PO (12:00)
[2020-05-30] MEDS ORDERED: MECLIZINE HCL12.5 MG PO (12:03)
[2020-05-30] MEDS ORDERED: MUPIROCIN22 GM TOPICAL (12:04)
[2020-05-30] MEDS ORDERED: ALDACTONE25 MG PO (12:05)
[2020-05-30] MEDS ORDERED: ULTRAM50 MG PO (12:06)
[2020-05-30 13:07] LABS: BASOPHILS 0 % (0-2); EOSINOPHILS 0.3 % (0-7); HEMATOCRIT 39.1 % (36.0-48.0); HEMOGLOBIN 12.9 g/dL (12-16); IMMATURE GRANULOCYTES 0.7 % (0-5); LYMPHOCYTES 17.7 % (15-50); MCH 30.6 pg (26.0-34.0); MCV 92.7 fL (80.0-100.0); MEAN PLATELET VOLUME 10.4 fL (7.4-10.4); MONOCYTES 13.8 % (2-11); NEUTROPHILS 67.5 % (40-80); PLATELET COUNT 204 10x3/uL (130-400); RBC 4.22 10x6/uL (4.00-5.40); RDW 13.2 % (11.5-14.5); WBC 5.9 10x3/uL (4.8-10.8)
[2020-05-30 13:13] LABS: ALBUMIN 3.8 g/dL (3.4-5.0); ALKALINE PHOSPHATASE 129 U/L (30-120); ALT (SGPT) 12 U/L (10-68); CALC OSMOLALITY 280 mosm/kg (275-300); CARBON DIOXIDE 36.8 mmol/L (21.0-32.0); CHLORIDE - SERUM 97 mmol/L (98-107); CKMB 0.7 U/L (0.0-3.6); CREATINE KINASE 63 UL (21-215); CREATININE - SERUM 1.3 mg/dL (0.6-1.3); GLUCOSE 192 mg/dL (74-106); POTASSIUM - SERUM 3.1 mmol/L (3.5-5.1); PROTEIN - SERUM 7.6 g/dL (6.4-8.2); SODIUM 137 mmol/L (136-145); TROPONIN-I 0.025 ng/mL (0.000-0.060); UREA NITROGEN 19 mg/dL (7-18); eGFR NON AFRICAN AMERICAN 41 mL/min (90-120)
[2020-05-30 13:37] LABS: APTT 41.5 SECONDS (22.8-39.4); INR 2.93 (0.85-1.17)
[2020-05-30 14:35] LABS: BILIRUBIN NEGATIVE (NEGATIVE); GLUCOSE NEGATIVE (NEGATIVE); KETONE NEGATIVE (NEGATIVE); NITRITE NEGATIVE (NEGATIVE); UROBILINOGEN NORMAL (NORMAL)
[2020-05-30 15:22] VITALS: BP 152/79
== END 2020-05-30 15:22 | disposition home or self-care (01) ==
LOC: D.ER 11:48
PROVIDERS: Family Medicine
DX: R55 Syncope and collapse (principal); E11.9 Type 2 diabetes mellitus without complications; I50.9 Heart failure, unspecified; Z79.84 Long term (current) use of oral hypoglycemic drugs

== ENCOUNTER → 2021-01-20 13:18 | Outpatient (CLI) | payer MEDICARE, BC ==
[2020-12-17 12:13] VITALS: BMI 28.4
[~2021-01-20 13:18] MED LIST changes: +ACETAMINOPHEN325 MG PO; +ALDACTONE25 MG PO; +BUMEX2 MG PO; +CHRONULAC30 ML PO; +FUROSEMIDE40 MG PO; +MECLIZINE HCL12.5 MG PO; +MUPIROCIN22 GM TOPICAL; +POTASSIUM CHLO10 ME1 PO; +ULTRAM50 MG PO; +ZYRTEC10 MG PO
== END | disposition home or self-care (01) ==
LOC: D.RAD 13:00
PROVIDERS: ATTEND Internal Medicine Gastroenterology
DX: R13.10 Dysphagia, unspecified (principal)

== ENCOUNTER 2021-02-20 07:27 | Day surgery (SDC) | payer MEDICARE, BC ==
[~2021-02-20] VITALS: Ht 154.9 cm; Wt 65.9 kg
[2021-02-20 07:56] LABS: ANION GAP 16.3 mmol/L (8-16); CALCIUM 9.5 mg/dL (8.5-10.1); CARBON DIOXIDE 30.4 mmol/L (21.0-32.0); CREATININE - SERUM 1.3 mg/dL (0.6-1.3); POTASSIUM - SERUM 3.7 mmol/L (3.5-5.1)
[2021-02-20 08:31] LABS: BASOPHILS 0 % (0-2); EOSINOPHILS 0.1 % (0-7); HEMATOCRIT 39.5 % (36.0-48.0); HEMOGLOBIN 12.6 g/dL (12-16); IMMATURE GRANULOCYTES 0.5 % (0-5); LYMPHOCYTE ABS# 1.88 10x3/uL (1.18-3.74); LYMPHOCYTES 25.5 % (15-50); MCH 31.3 pg (26.0-34.0); MCHC 31.9 g/dL (31.0-37.0); MEAN PLATELET VOLUME 11.4 fL (7.4-10.4); MONOCYTES 14.4 % (2-11); NEUTROPHIL ABS# 4.39 10x3/uL (1.56-6.13); NEUTROPHILS 59.5 % (40-80); RBC 4.03 10x6/uL (4.00-5.40); RDW 14.1 % (11.5-14.5); WBC 7.4 10x3/uL (4.8-10.8)
[2021-02-20 08:35] LABS: PLATELET COUNT 195 10x3/uL (130-400)
[2021-02-20 09:07] VITALS: BP 125/65; Ht 154.9 cm; Wt 65.9 kg
[2021-02-20 09:17] LABS: INR 1.12 (0.85-1.17); PROTIME 13.3 SECONDS (11.6-15.0)
--- NOTE | 2021-02-20 11:15 | NUR ---
DC INSTRUCTIONS GIVEN TO PT AND DAUGHTER, JENNIFER. VERBALIZED UNDERSTANDING. PIV DC'D, CATHETER INTACT. PT GETTING DRESSED WITH DAUGHTER ASSISTING. 9247 PT DC'D HOME ACCOMPANIED BY THIS NURSE TO POV WITH DAUGHTER DRIVING. ALL BELONGINGS WITH DAUGHTER.
--- NOTE | 2021-02-20 16:57 | OP ---
PATIENT NAME: EMMETT OLIVIA MEDICAL RECORD: [id number] :35 LOCATION:[facility] ADMISSION DATE: SURGEON: HEONK PATEL MD DATE OF OPERATION: 02/20/2021 PROCEDURE: Colonoscopy. PREOPERATIVE DIAGNOSES: Change in bowel habits, abdominal pain, history of polyps. MEDICATION: Propofol per anesthesia. DESCRIPTION OF PROCEDURE: Colonoscopy was performed. The colonoscope was inserted through the rectum and advanced to the cecum, identified by the ileocecal valve and the appendiceal orifice. The quality of the prep was good. There were small internal hemorrhoids viewed on retroflexion. There were sized sigmoid diverticula seen in the sigmoid colon. The remainder of the exam was normal. The patient tolerated the procedure well. FINAL DIAGNOSES: Few sigmoid diverticula, small internal hemorrhoids. PLAN: Advance diet. Return to GI office. Fiber supplements. TRANSINT:[id number] Voice Confirmation ID: [id number] DOCUMENT ID: [id number] HENOK PATEL MD at 1657 CC: [id number] DICTATION DATE: 02/20/21 1016 FIELD SERVICE REPRESENTATIVE: 02/20/21 1144 [facility] 02/20/[id number] [place] [address]
== END 2021-02-20 11:35 | disposition home or self-care (01) ==
LOC: D.OPS 07:27
PROVIDERS: Anesthesiology; ATTEND Internal Medicine Gastroenterology
DX: R19.4 Change in bowel habit (principal); Z86.010 Personal history of colon polyps; K64.8 Other hemorrhoids; K57.30 Diverticulosis of large intestine without perforation or abscess without bleeding; R10.31 Right lower quadrant pain; R13.10 Dysphagia, unspecified

== ENCOUNTER 2021-04-08 22:16 | Inpatient (IN) | payer MEDICARE, BC ==
[~2021-04-08] VITALS: Ht 154.9 cm; Wt 68.1 kg
[2021-04-08 23:27] LABS: BASOPHILS 0.3 % (0-2); EOSINOPHILS 0.3 % (0-7); HEMATOCRIT 30.6 % (36.0-48.0); HEMOGLOBIN 10.3 g/dL (12-16); LYMPHOCYTES 23.4 % (15-50); MCH 31.2 pg (26.0-34.0); MCHC 33.8 g/dL (31.0-37.0); MCV 92.4 fL (80.0-100.0); MEAN PLATELET VOLUME 8.8 fL (7.4-10.4); MONOCYTES 12.3 % (2-11); NEUTROPHILS 63.7 % (40-80); RBC 3.31 10x6/uL (4.00-5.40); RDW 14.8 % (11.5-14.5); WBC 5.5 10x3/uL (4.8-10.8)
[2021-04-08 23:34] LABS: PLATELET COUNT 138 10x3/uL (130-400)
[2021-04-08 23:43] LABS: ANION GAP 10.1 mmol/L (8-16); CALCIUM 8.6 mg/dL (8.5-10.1); CARBON DIOXIDE 31.4 mmol/L (21.0-32.0); POTASSIUM - SERUM 3.5 mmol/L (3.5-5.1)
[2021-04-08 23:51] LABS: BILIRUBIN NEGATIVE (NEGATIVE); KETONE NEGATIVE (NEGATIVE); NITRITE NEGATIVE (NEGATIVE); UROBILINOGEN NORMAL mg/dL (< 2)
[2021-04-08 23:57] LABS: ALBUMIN 3.3 g/dL (3.4-5.0); BILIRUBIN - TOTAL 0.29 mg/dL (0.2-1.3); PROTEIN - SERUM 6.5 g/dL (6.4-8.2); T4 THYROXINE 8.9 ug/dL (4.7-13.3); THYROID STIMULATING HORMONE 4.1 uIU/mL (0.36-3.74)
[2021-04-08 23:59] LABS: UDS - AMPHET NEGATIVE QUAL (NEGATIVE); UDS - BARB NEGATIVE QUAL (NEGATIVE); UDS - BENZO NEGATIVE QUAL (NEGATIVE); UDS - COCAINE NEGATIVE QUAL (NEGATIVE); UDS - OPIATE NEGATIVE QUAL (NEGATIVE); UDS - PCP NEGATIVE QUAL (NEGATIVE); UDS - THC NEGATIVE QUAL (NEGATIVE)
[2021-04-09 04:00] LABS: HEMATOCRIT 30.8 % (36.0-48.0); HEMOGLOBIN 10.3 g/dL (12-16); MCH 31.1 pg (26.0-34.0); MCHC 33.6 g/dL (31.0-37.0); MCV 92.6 fL (80.0-100.0); MEAN PLATELET VOLUME 8.7 fL (7.4-10.4); RBC 3.33 10x6/uL (4.00-5.40); RDW 15.4 % (11.5-14.5); WBC 5.2 10x3/uL (4.8-10.8)
[2021-04-09 04:19] LABS: INR 2.27 (0.85-1.17); PROTIME 23.3 SECONDS (11.6-15.0)
--- NOTE | 2021-04-09 04:30 | NUR ---
PT RECEIVED TO ROOM 2109 VIA STRETCHER ACCOMPANIED BY 2 ER NURSES. PT TRANSFERRED TO ROOM BED. PT AWAKE, ALERT ORENTED BUT WITH NOTED INTERMITENT CONFUSION. CALL LIGHT IN REACH, PSOEY PAD UNDER PT FOR SAFETY. NO ACUTE DISTRESS. WILL CONTINUE TO MONITOR
--- NOTE | 2021-04-09 04:45 | NUR ---
HEPARIN GTT START AT 1000 UNITS/HR PER ORDER, 3000 UNIT BOLUS GIVEN PRIOR TO INITATION OF DRIP PER ORDER. PTT TO BE REDRAWN IN 6HRS. current ptt 37
[2021-04-09 05:00] VITALS: BP 124/52; BMI 33.1
[2021-04-09 07:49] VITALS: BP 102/52
--- NOTE | 2021-04-09 09:38 | NUR ---
PATIENT AAOX1 LYING SEMI FOWLERS, RESP EVEN AND NON LABORED, NO S/S OF DISTRESS, PATIENT ASSESSED AND NO FURTHER NEEDS AT THIS TIME, CLIR, STASP
[2021-04-09 12:02] VITALS: BP 120/56
[2021-04-09 16:03] VITALS: BP 116/58
--- NOTE | 2021-04-09 18:01 | NUR ---
I have reviewed this patient and I concur with the Shift Assessment completed by the Licensed Practical Nurse today this shift.
--- NOTE | 2021-04-09 18:02 | NUR ---
FAMILY ASKED IF THE PATIENTS 8 MONTH OLD GRANDCHILD COULD VISIT WHEN SHE ARRIVED, PAPER REEL OPERATOR, MANAGER SCIENTIFIC ANURAG ADVISED TO CALL ADAM IN ADMINISTRATION FOR OPINION, DECISION WAS MADE THAT IT WASNT A GOOD IDEA PER POLICY AND BECAUSE WE HAVE POSITIVE COVID ON THE FLOOR.
--- NOTE | 2021-04-09 18:10 | NUR ---
ICU NURSE JOSE AND ANDREA ACCESSED PATIENT TO MAKE SURE SHE DID NOT NEED TO BE TRANSFERED TO ICU, AT THIS TIME THE PATIENT IS NOT SYMPTOMATIC OF A STROKE OR SEEMS TO NEED AN ICU BED, SIMONE CROWELL
[2021-04-09 21:32] VITALS: BP 141/73
[2021-04-10] VITALS (7 sets, daily range): BP systolic 107–139; BP diastolic 55–99
--- NOTE | 2021-04-10 01:10 | NUR ---
04/09/21 @ 1900 PT RESTING IN BED. AROUSES TO VERBAL STIMULI. LEFT JAW AREA SWOLLEN WITH TONGUE SHIFTING TOWARD THE RIGHT. SPEECH SLURRED/GARBLED AT TIMES. LAUGHS INAPPROPRIATELY AT TIMES. HEPARIN DRIP STOPPED & PTT DRAWN STAT D/T INFUSION RATE WASN'T CHANGED WITH PREVIOUS LAB (CRITICAL >200)
[2021-04-10 03:23] LABS: BASOPHILS 0.2 % (0-2); EOSINOPHILS 0.3 % (0-7); HEMATOCRIT 31.8 % (36.0-48.0); HEMOGLOBIN 10.7 g/dL (12-16); MCH 31.3 pg (26.0-34.0); MCHC 33.8 g/dL (31.0-37.0); MCV 92.6 fL (80.0-100.0); MEAN PLATELET VOLUME 8.5 fL (7.4-10.4); MONOCYTES 12.2 % (2-11); NEUTROPHILS 63.3 % (40-80); PLATELET COUNT 132 10x3/uL (130-400); RBC 3.43 10x6/uL (4.00-5.40); RDW 15.5 % (11.5-14.5)
[2021-04-10 03:28] LABS: WBC 3.5 10x3/uL (4.8-10.8)
[2021-04-10 03:32] LABS: INR 2.11 (0.85-1.17)
[2021-04-10 03:34] LABS: APTT 128.4 SECONDS (22.8-39.4)
[2021-04-10 03:42] LABS: ANION GAP 10.6 mmol/L (8-16); CALCIUM 8.2 mg/dL (8.5-10.1); CARBON DIOXIDE 32.5 mmol/L (21.0-32.0); CREATININE - SERUM 0.9 mg/dL (0.6-1.3); MAGNESIUM - SERUM 1.5 mg/dL (1.8-2.4); PHOSPHOROUS 4.2 mg/dL (2.5-4.9); POTASSIUM - SERUM 3.1 mmol/L (3.5-5.1)
--- NOTE | 2021-04-10 06:00 | NUR ---
PT DAUGHTER & SON IN LAW HERE FROM [place]. UPDATED ON PT CONDIITION. THEY ARE GOING TO REST & WILL BE BACK LATER. MARISSA [phone] PLEASANTLY CONFUSED AT TIMES. PICKING AT AN AREA ON HER LEFT JAW, STATES THAT THERE IS PORCELAIN IN HER SKIN THERE. HAS BEEN LOOKING FOR HER WATCH FOR MOST OF THE NIGHT.
[2021-04-11 04:00] VITALS: BP 123/47
[2021-04-11 05:52] LABS: HEMATOCRIT 30.7 % (36.0-48.0); HEMOGLOBIN 10.3 g/dL (12-16); MCH 31.2 pg (26.0-34.0); MCHC 33.6 g/dL (31.0-37.0); MCV 92.8 fL (80.0-100.0); MEAN PLATELET VOLUME 9.2 fL (7.4-10.4); RBC 3.3 10x6/uL (4.00-5.40); RDW 15.2 % (11.5-14.5)
[2021-04-11 06:02] LABS: WBC 5.9 10x3/uL (4.8-10.8)
[2021-04-11 06:09] LABS: ANION GAP 8.8 mmol/L (8-16); CALCIUM 8.7 mg/dL (8.5-10.1); CARBON DIOXIDE 32.4 mmol/L (21.0-32.0); MAGNESIUM - SERUM 1.5 mg/dL (1.8-2.4); PHOSPHOROUS 3.7 mg/dL (2.5-4.9); POTASSIUM - SERUM 3.2 mmol/L (3.5-5.1)
[2021-04-11 06:24] LABS: APTT 92.7 SECONDS (22.8-39.4); INR 1.55 (0.85-1.17); PROTIME 17.3 SECONDS (11.6-15.0)
--- NOTE | 2021-04-11 06:50 | NUR ---
RECIEVED BED SIDE REPORT. PATIENT RESTING COMFORTABLY, NO CURRENT PAIN OR DISTRESS NOTED. RESP EVEN AND UNLABORED. O2 VIA NC AT 3L, IV TO LEFT FOREARM.
[2021-04-11 07:54] VITALS: BP 107/56
--- NOTE | 2021-04-11 10:35 | NUR ---
PATIENT SITTING UP IN BED. NO CURRENT PAIN OR DISTRESS. RESP EVEN AND UNLABORED ON 3L O2 VIA NASAL CANNULA. LUNG SOUNDS WHEEZING IN BILATERAL BASES. TELE SR. HEART SOUNDS REGULAR RATE AND RYTHYM. IV TO LEFT FOREARM PATENT FLUSHES WELL. HEPARIN RUNNING 5MLS HOUR . PT/INR MONITOR Q 6 HOURS. FAMILY AT BEDSIDE.
[2021-04-11 10:58] VITALS: BP 132/41
[2021-04-11 13:09] VITALS: Ht 154.9 cm; Wt 68.1 kg
--- NOTE | 2021-04-11 13:45 | NUR ---
PTT IS 37.6, 3000 UNITS GIVEN OF HEPARIN AND ADJUSTED RATE PER PROTOCOL. IS IS GIVEN TO PATIENT PER SAL WATERMAN AND INSTRUCTED IN USE. VOLUME IS 500 ML
[2021-04-11 15:09] VITALS: BP 129/63
--- NOTE | 2021-04-11 19:30 | NUR ---
RECEIVED REPORT, WILL ASSUME CARE OF PT, FAMILY IN ROOM, DENIES ANY NEEDS, HEPARIN @7-LFA, [id number], CALL LIGHT IN REACH, WILL CONTINUE PLAN OF CARE
[2021-04-11 20:04] VITALS: BP 107/71
--- NOTE | 2021-04-11 21:05 | NUR ---
APPT-104.3, PLACED HEPARIN ON HOLD FOR 30MIN
--- NOTE | 2021-04-11 21:35 | NUR ---
RESTATED HEPARIN, DECREASE BY 200
[2021-04-11 23:16] VITALS: BP 142/61
[2021-04-12 03:20] VITALS: BP 132/45
--- NOTE | 2021-04-12 05:55 | NUR ---
LAB NOTIFIED OF TIMED APTT AT 0430 THAT WAS ORDERED STAT, RESULTS STILL NOT AVAILABLE.
[2021-04-12 06:41] LABS: BASOPHILS 0.4 % (0-2); EOSINOPHILS 0.2 % (0-7); HEMOGLOBIN 10.7 g/dL (12-16); LYMPHOCYTES 29.8 % (15-50); MCH 31.3 pg (26.0-34.0); MCHC 33.3 g/dL (31.0-37.0); MCV 93.9 fL (80.0-100.0); MEAN PLATELET VOLUME 9.1 fL (7.4-10.4); MONOCYTES 14.5 % (2-11); NEUTROPHILS 55.1 % (40-80); PLATELET COUNT 124 10x3/uL (130-400); RBC 3.41 10x6/uL (4.00-5.40); RDW 15.6 % (11.5-14.5)
[2021-04-12 06:44] LABS: WBC 3.4 10x3/uL (4.8-10.8)
[2021-04-12 07:03] LABS: ALBUMIN 3.2 g/dL (3.4-5.0); ANION GAP 8.5 mmol/L (8-16); BILIRUBIN - TOTAL 0.33 mg/dL (0.2-1.3); CALCIUM 9.2 mg/dL (8.5-10.1); CARBON DIOXIDE 30.3 mmol/L (21.0-32.0); CREATININE - SERUM 0.8 mg/dL (0.6-1.3); MAGNESIUM - SERUM 1.7 mg/dL (1.8-2.4); PROTEIN - SERUM 6.5 g/dL (6.4-8.2)
--- NOTE | 2021-04-12 07:07 | NUR ---
PATIENT RESTING WITH EYES CLOSED. NO CURRENT ASSESSED PAIN OR DISTRESS RESP EVEN AND UNLABORED. NASAL CANNULA IN USE AT 3L.
[2021-04-12 07:08] LABS: POTASSIUM - SERUM 3.8 mmol/L (3.5-5.1)
[2021-04-12 07:13] LABS: PROTIME 14.2 SECONDS (11.6-15.0)
[2021-04-12 07:15] LABS: INR 1.22 (0.85-1.17)
[2021-04-12 08:25] VITALS: BP 140/64
--- NOTE | 2021-04-12 13:28 | NUR ---
PATIENT RESTING IN BED WITH EYES CLOSED. NO CURRENT PAIN OR DISTRESS NOTED. RESP EVEN AND UNLABORED. LUNG SOUNDS WHEEZING NOTED. PATIENT IS UP AT TORY. ENCOURAGED TO USE INCENTIVE SPIROMETER. HEART SOUNDS REG RATE AND RYTHYM SR TELE. CONTINUES ON HEPARIN DRIP INCREASED BY 1. NEXT LAB AT 1330.
--- NOTE | 2021-04-12 14:31 | NUR ---
I have reviewed this patient and I concur with the Shift Assessment completed by the Licensed Practical Nurse today this shift.
--- NOTE | 2021-04-12 14:41 | NUR ---
CONTACTED LAB ABOUT PTT DRAW.
[2021-04-12 15:56] VITALS: BP 122/50
--- NOTE | 2021-04-12 18:09 | NUR ---
ATTEMPTED TO GET URINE SAMPLE ALL SHIFT. TRIED SEVERAL TIMES WALKING TO [facility] WITH VERY LITTLE OUTPUT. ATTEMPTED PERIWICK CURRENTLY IN PLACE AND ALSO ATTEMPTED BLADDER SCAN SHOWING NOTHING IN BLADDER AND A IN AND OUT CATH. WILL REPORT TO ONCOMING SHIFT THAT UA HAS TO BE COLLECTED .
--- NOTE | 2021-04-12 19:29 | NUR ---
RECEIVED REPORT, WILL ASSUME CARE OF PT, ASSIST PT TO BATHROOM, ABLE TO COLLECT UA, SENT TO LAB, DENIES ANY OTHER NEEDS AT THIS TIME, BED IS LOW, SRX2, CALL LIGHT IN REACH, PHILIPPE ALARM IS ON, WILL CONTINUE PLAN OF CARE
[2021-04-12 19:49] LABS: BILIRUBIN NEGATIVE (NEGATIVE); KETONE NEGATIVE (NEGATIVE); NITRITE NEGATIVE (NEGATIVE); UROBILINOGEN NORMAL mg/dL (< 2)
[2021-04-12 19:51] LABS: BACTERIA FEW HPF (NONE SEEN); SQUAMOUS EPITHELIAL 0-5 HPF (0-4)
[2021-04-12 20:33] VITALS: BP 109/79
[2021-04-12] MEDS ORDERED: IPRAT-ALBUT 0.5-3 ML (20:36)
[2021-04-12] MEDS ORDERED: LINZESS145 MCG PO (20:37)
--- NOTE | 2021-04-12 22:21 | NUR ---
INCREASES HEPARIN 1 UNIT, CURRENT RATE 8
[2021-04-13 00:34] VITALS: BP 128/83
[2021-04-13 04:49] VITALS: BP 158/76
[2021-04-13 04:56] LABS: BASOPHILS 0.9 % (0-2); EOSINOPHILS 0.3 % (0-7); HEMATOCRIT 30.1 % (36.0-48.0); HEMOGLOBIN 10.1 g/dL (12-16); LYMPHOCYTES 20.9 % (15-50); MCH 31.4 pg (26.0-34.0); MCHC 33.7 g/dL (31.0-37.0); MCV 93.2 fL (80.0-100.0); MEAN PLATELET VOLUME 8.6 fL (7.4-10.4); MONOCYTES 10.1 % (2-11); NEUTROPHILS 67.8 % (40-80); PLATELET COUNT 124 10x3/uL (130-400); RBC 3.23 10x6/uL (4.00-5.40); RDW 15.5 % (11.5-14.5)
[2021-04-13 05:15] LABS: ALBUMIN 3.1 g/dL (3.4-5.0); ANION GAP 8.8 mmol/L (8-16); BILIRUBIN - TOTAL 0.21 mg/dL (0.2-1.3); CALCIUM 8.7 mg/dL (8.5-10.1); CARBON DIOXIDE 29.2 mmol/L (21.0-32.0); CREATININE - SERUM 0.8 mg/dL (0.6-1.3); MAGNESIUM - SERUM 1.7 mg/dL (1.8-2.4); PROTEIN - SERUM 6.1 g/dL (6.4-8.2)
[2021-04-13 06:09] LABS: INR 1.12 (0.85-1.17); PROTIME 13.4 SECONDS (11.6-15.0)
--- NOTE | 2021-04-13 07:20 | NUR ---
RECIEVE REPORT. RESTING IN BED WITH EYES CLOSED. HEPARIN INFUSING PER HEPARIN PROTOCOL. NO SIGNS OF DISTRESS. SINUS RHYTHM 96 WITH PACs ON TELEMETRY. CONTINUE PLAN OF CARE AND SAFETY PRECAUTIONS.
[2021-04-13 08:00] VITALS: BP 158/68
[2021-04-13 12:00] VITALS: BP 99/47
[2021-04-13 16:00] VITALS: BP 117/57; BP 146/69
--- NOTE | 2021-04-13 16:07 | NUR ---
ALERT AND ORIENTED X4. ASSIST UP TO STANDING SCALE TO OBTAIN STANDING WEIGHT. WT-160.6lbs DOCUMENTED IN FLOW SHEET AND ON FRONT OF CHART. BP BILATERAL ARMS, MEDICATIONS, AND HT ON FRONT OF CHART. CONSENTS FOR PROCEDURE SIGNED ON CHART. DENIES ANY NEEDS. HEPARIN INFUSING ORDERED PER PROTOCOL. CONTINUE PLAN OF CARE AND SAFETY PRECAUTIONS.
--- NOTE | 2021-04-13 19:30 | NUR ---
RECEIVED REPORT, WILL ASSUME CARE OF PT, VISITING WITH GRAND DAUGHTER, DENIES ANY NEEDS AT THIS TIME, BED IS LOW, SRX2, CALL LIGHT IN REACH, PHILIPPE ALARM IS ON, WILL CONTINUE PLAN OF CARE
[2021-04-13 21:00] VITALS: BP 140/65
[2021-04-14] VITALS (37 sets, daily range): BP systolic 99–150; BP diastolic 40–76
--- NOTE | 2021-04-14 04:21 | NUR ---
NOTED THAT PT IS ON HEPARIN DRIP WITH NO DESIGNATED STOP TIME FOR PLANNED CAROTID ENDARECTOMY IN AM. REVIEWED ENTIRE CHART ORDERS TO SEE IF ANY DOCUMENTATION INDICATED WHEN TO STOP THE HEPARIN DRIP. WAS PROVIDED DR AHUMADA CELL NUMBER [phone] AND REACHED A RECORDING THAT WOULD NOT ALLOW A MESSAGE TO BE LEFT. SPOKE WITH SUPERVISOR PRE WAVE, MARIA INES, AND INFORMED OF SITUATION. SHE PROVIDED OFFICE NUMBER TO HAVE OFFICE PAGE DR ESCAMILAL. CALL TO DR AHUMADA OFFICE ONLY PROVIDED A VOICE MAIL TO LEAVE A MESSAGE. SPOKE AGAIN WITH SUPERVISOR PRE WAVE AND SHE SAID SHE WILL SEEK ANOTHER WAY TO CONTACT AND CALL BACK TO UNIT WHEN SHE HAS FURTHER INFO.
--- NOTE | 2021-04-14 05:14 | NUR ---
SITED 20G TO LEFT HAND AND RESUMMED HEPARIN DRIP AT 7ML/HR AND NS @ 50ML/HR. HAVE CONTINUED TO TRY AND REACH DR ESCAMILLA, BUT CALLING HIS CELL NUMBER ONLY GET A MESSAGE THAT NO CALLS ARE BEING ACCEPTED AT THIS TIME.
--- NOTE | 2021-04-14 05:18 | NUR ---
NOTIFIED LAB THAT BLOOD BAND IS ON THE RIGHT ARM AND MUST BE MOVED TO LEFT ARM PER DR AHUMADA ORDERS.
--- NOTE | 2021-04-14 05:54 | NUR ---
ATTEMPTED TO CALL DR ESCAMILLA AGAIN AND ONLY RECIEVED MESSAGE THAT NO MESSAGES COULD BE LEFT AT THIS TIME.
--- NOTE | 2021-04-14 06:04 | NUR ---
CALLED SURGERY AT 2326 AND SPOKE WITH NURSE. SHE STATES NO ONE IS PRESENT FROM THE CV TEAM AT THIS TIME. ASKED HER TO PLEASE HAVE 1ST CV TEAM NURSE PLEASE CALL MED 2 WHEN THEY SHOW UP.
--- NOTE | 2021-04-14 06:16 | NUR ---
WAS INFORMED THAT TEXT MESSAGES COULD BE SENT TO DR ESCAMILLA AT [phone] TEXTED THE FOLLOWING MESSAGE: DR ESCAMILLA NEED CLARIFICATION ON WHEN YOU WANT THE HEPARIN DRIP ON 2108, EMMETT OLIVIA, STOPPED. SHE IS YOUR 09 RIGHT CAROTID ENDARECTOMY. PATRIZIA العراقي RN [phone] AWAITING RESPONSE.
--- NOTE | 2021-04-14 06:36 | NUR ---
PHONE CALL TO DR ESCAMILLA. REQUESTED ORDER FOR WHEN HE WISHED TO HAVE THE HEPARIN DRIP STOPPED ON THIS PATIENT, EMMETT OLIVIA, DUE FOR CAROTID ENDARECTOMY AT 0900 TODAY. NEW ORDER TO STOP HEPARIN DRIP AT 0700. PLACED ORDER UNDER NURSING INSTRUCTIONS AND NOTIFIED PRIMARY NURSE OF ORDER.
[2021-04-14 06:48] LABS: BASOPHILS 0.7 % (0-2); EOSINOPHILS 0.2 % (0-7); HEMATOCRIT 29.9 % (36.0-48.0); LYMPHOCYTES 19.1 % (15-50); MCH 31.6 pg (26.0-34.0); MCHC 33.4 g/dL (31.0-37.0); MCV 94.4 fL (80.0-100.0); MEAN PLATELET VOLUME 9.1 fL (7.4-10.4); MONOCYTES 12.2 % (2-11); NEUTROPHILS 67.8 % (40-80); PLATELET COUNT 127 10x3/uL (130-400); RBC 3.16 10x6/uL (4.00-5.40); RDW 15.7 % (11.5-14.5); WBC 4.1 10x3/uL (4.8-10.8)
--- NOTE | 2021-04-14 06:55 | NUR ---
RECEIVED REPORT. ASSUMED CARE OF PATIENT. CALL LIGHT WITHIN REACH. NO DISTRESS. WHITE BOARD UPDATED, BEDSIDE SHIFT REPORT COMPLETE. NEEDLE SETTER AT BEDSIDE PREPPING PATIENT FOR PROCEDURE THIS AM. FAMILY AT BEDSIDE.
[2021-04-14 07:04] LABS: INR 1.19 (0.85-1.17)
[2021-04-14 07:07] LABS: ALBUMIN 3.2 g/dL (3.4-5.0); BILIRUBIN - TOTAL 0.37 mg/dL (0.2-1.3); CARBON DIOXIDE 30.5 mmol/L (21.0-32.0); CREATININE - SERUM 0.9 mg/dL (0.6-1.3); MAGNESIUM - SERUM 2.1 mg/dL (1.8-2.4); POTASSIUM - SERUM 4.5 mmol/L (3.5-5.1); PROTEIN - SERUM 6.4 g/dL (6.4-8.2)
--- NOTE | 2021-04-14 07:13 | NUR ---
RECEIVED CALL TO PREOP PATIENT AT THIS TIME.
--- NOTE | 2021-04-14 07:13 | NUR ---
HEPARIN DRIP OFF AT 0700 BY [facility] NURSE ELLEN PER .
--- NOTE | 2021-04-14 07:32 | NUR ---
preop medications administered. awaiting pharmacy to deliver vanc 1.5 grams to be sent to surgery with patient. family at bedside at this time. no distress. eeg complete.
--- NOTE | 2021-04-14 07:46 | NUR ---
FLUIDS AND VANC PLACED ON END OF PATIENT BED TO BE SENT WITH PATIENT TO PROCEDURE.
--- NOTE | 2021-04-14 08:51 | NUR ---
0800 PATIENT LEFT UNIT VIA BED FOR PROCEDURE. NO DISTRESS UPON LEAVING UNIT. FAMILY HAS ALL OF PATIENTS PERSONAL ITEMS INCLUDING DENTURES.
--- NOTE | 2021-04-14 09:15 | NUR ---
0810 PATIENT HAS LARGE BRUISE ON RIGHT INSIDE ELBOW SCRATCH NOTED ON LEFT BIG TOE, ARTERIAL LINE AND CVL PLACED BY ANESTHESIA, MEME
--- NOTE | 2021-04-14 09:17 | NUR ---
0830 UPPER DENTURE TAKEN OUT AND TAKEN TO [facility] IN [facility] WAITING ROOM, [facility].
--- NOTE | 2021-04-14 13:00 | NUR ---
PLACED ON 6L O2 VIA NC. PT OPENS EYES TO VOICE, FOLLOW COMMANDS. CURRNTLY HAS PLASMOLYTE AT 30ML/HR TO LEFT SUB CVL. RIGHT RADIAL FARAZ IN PLACE. ROOT CATHETER SECURED IN PLACE. TEDS AND SCD'S ON. WILL CONTINUE TO MONITOR.
--- NOTE | 2021-04-14 13:03 | NUR ---
Nutrition Follow-up: NPO and OOR for R carotid endarterectomy. Poor PO intake noted per chart review (0-25% yesterday). Wt: 160# (04/13) Labs noted: Glu 114, Alb 3.2 Meds noted: Linzess, Protonix, Carafate, KDur, MagOx, Zofran, NS @ 50 -Resume diet when medically feasible (Cardiac, Carb Consistent, Glucerna TID); encourage PO intake and honor food preferences within diet restrictions. -Monitor wt. -RD follow-up: 04/16
--- NOTE | 2021-04-14 14:45 | NUR ---
FARAZ BP 149/65, BP CUFF PRESSURE 119/62 ON LEFT ARM. NITROGLYCERIN AT 10ML/HR. DR. ESCAMILLA NOTIFIED. DID NOT WANT CLEVIPREX STARTED AT THIS TIME. TREAT BP CUFF PRESSURE. CHECK BP ON BOTH ARMS ONCE. RIGHT ARM BP IS 116/58. WILL CONTINUE TO MONITOR.
--- NOTE | 2021-04-14 15:30 | NUR ---
DR. ESCAMILLA IN UNIT. ORDERED 2.5MG IV LOPRESSOR X 1.
[2021-04-15] VITALS (25 sets, daily range): BP systolic 101–162; BP diastolic 45–103
[2021-04-15 04:12] LABS: BASOPHILS 0.1 % (0-2); EOSINOPHILS 0 % (0-7); LYMPHOCYTES 7.5 % (15-50); MCHC 32.6 g/dL (31.0-37.0); MCV 95.3 fL (80.0-100.0); MONOCYTES 13.5 % (2-11); NEUTROPHILS 78.9 % (40-80); PLATELET COUNT 104 10x3/uL (130-400); RDW 15.8 % (11.5-14.5)
[2021-04-15 04:30] LABS: INR 1.24 (0.85-1.17); PROTIME 14.5 SECONDS (11.6-15.0)
[2021-04-15 04:34] LABS: BILIRUBIN - TOTAL 0.38 mg/dL (0.2-1.3); CARBON DIOXIDE 25.2 mmol/L (21.0-32.0); CREATININE - SERUM 0.8 mg/dL (0.6-1.3); MAGNESIUM - SERUM 1.7 mg/dL (1.8-2.4)
[2021-04-15 04:37] LABS: ALBUMIN 2.3 g/dL (3.4-5.0); ANION GAP 12.5 mmol/L (8-16); CALCIUM 6.9 mg/dL (8.5-10.1); POTASSIUM - SERUM 3.7 mmol/L (3.5-5.1); PROTEIN - SERUM 4.7 g/dL (6.4-8.2)
[2021-04-15 04:38] LABS: HEMOGLOBIN 7.8 g/dL (12-16); RBC 2.52 10x6/uL (4.00-5.40); WBC 5.9 10x3/uL (4.8-10.8)
[2021-04-16] VITALS (19 sets, daily range): BP systolic 116–141; BP diastolic 45–73
[2021-04-16 05:14] LABS: BASOPHILS 0.2 % (0-2); EOSINOPHILS 0.1 % (0-7); HEMATOCRIT 27.3 % (36.0-48.0); HEMOGLOBIN 9.2 g/dL (12-16); LYMPHOCYTES 8.2 % (15-50); MCH 31.8 pg (26.0-34.0); MCHC 33.5 g/dL (31.0-37.0); MEAN PLATELET VOLUME 8.7 fL (7.4-10.4); MONOCYTES 11.7 % (2-11); NEUTROPHILS 79.8 % (40-80); PLATELET COUNT 113 10x3/uL (130-400); RBC 2.88 10x6/uL (4.00-5.40); RDW 15.9 % (11.5-14.5); WBC 6.6 10x3/uL (4.8-10.8)
[2021-04-16 05:50] LABS: ALKALINE PHOSPHATASE 117 U/L (30-120); ALT (SGPT) 14 U/L (10-68); BILIRUBIN - TOTAL 0.53 mg/dL (0.2-1.3); CALCIUM 8.6 mg/dL (8.5-10.1); CARBON DIOXIDE 30.8 mmol/L (21.0-32.0); CHLORIDE - SERUM 106 mmol/L (98-107); CREATININE - SERUM 0.7 mg/dL (0.6-1.3); GLUCOSE 121 mg/dL (74-106); PROTEIN - SERUM 5.8 g/dL (6.4-8.2); SODIUM 143 mmol/L (136-145); eGFR NON AFRICAN AMERICAN 84 mL/min (90-120)
[2021-04-16 05:55] LABS: ALBUMIN 2.9 g/dL (3.4-5.0); CALC OSMOLALITY 284 mosm/kg (275-300); MAGNESIUM - SERUM 2.3 mg/dL (1.8-2.4); POTASSIUM - SERUM 4.6 mmol/L (3.5-5.1); UREA NITROGEN 10 mg/dL (7-18)
[2021-04-16 06:22] LABS: INR 1.2 (0.85-1.17); PROTIME 14.1 SECONDS (11.6-15.0)
--- NOTE | 2021-04-16 09:45 | NUR ---
Nutrition Reassessment/Follow-up: POD 2 R carotid endarterectomy. Poor appetite/PO intake. Does not care for Glucerna. Diet: Cardiac, Carb Consistent, Glucerna TID PO intake: 25% x 3 yesterday Wt: 162# (04/16) Labs noted: Glu 121, Alb 2.9 Meds noted: Linzess, Protonix, Carafate, KDur, MagOx Nutrition Diagnosis: -Inadequate energy intake R/T decreased appetite, advanced age AEB poor PO intake reported. Nutrition Goals: -PO intake >=75% avg of meals/snacks. -Meet est fluid needs without fluid overload. -Stable dry wt. Nutrition Intervention: -Nutrition needs unchanged since initial assessment. -Encourage PO intake and honor food preferences within diet restrictions. -D/c Glucerna per pt/family request. -Pt may benefit from an appetite stimulant. -Monitor wt. -RD follow-up: 04/17
--- NOTE | 2021-04-16 10:29 | OP ---
PATIENT NAME: EMMETT OLIVIA MEDICAL RECORD: [id number] :35 [facility] ADMISSION DATE:04/09/21 SURGEON: SARAH ESCAMILLA MD DATE OF OPERATION: 04/14/2021 SURGEON: Sarah Escamilla MD PROCEDURE PERFORMED: Right carotid endarterectomy. PREOPERATIVE DIAGNOSIS: Symptomatic right carotid stenosis. POSTOPERATIVE DIAGNOSIS: Symptomatic right carotid stenosis. ANESTHESIA: General endotracheal anesthesia. ESTIMATED BLOOD LOSS: 20 cc. COMPLICATIONS: None. SPECIMENS: Plaque. CONDITION: Stable. DISPOSITION: To CV ICU. OPERATIVE FINDINGS: 1. Severely calcified, completely occluded proximal right internal carotid artery. The plaque feathered well distally and was amputated. It was tacked distally. A CorMatrix patch was used for closure. 2. Neurologically intact to ICU. INDICATION: Symptomatic right internal carotid artery stenosis. PROCEDURE IN DETAIL: The patient was brought to the operating suite. General anesthesia was obtained. The patient was prepped and draped. The oblique incision was made in the right neck, taken down through subcutaneous tissue. Large facial venous branch was divided between ligatures and suture ligatures. Common carotid artery was dissected out and encircled. The external carotid and thyroid branch were encircled with vessel loops. Distal internal carotid was dissected out and the ansa was clipped and divided to allow exposure of the distal internal carotid artery. Heparin was given and after the heparin circulated, backbleeding of the internal carotid was controlled with a bulldog clamp, inflow was controlled with a vascular clamp. Back bleeding on the external carotid and thyroid branch were controlled with vessel loops. After clamping, the EEG and cerebral oximetry were monitored for a total of 2 minutes prior to the arteriotomy. Then, the arteriotomy was made, but it was unable to pass antegrade through the region of totally occluded proximal internal carotid artery. Therefore, a counterincision was made in the distal internal carotid artery and working in the proximal direction. The plaque was divided and a plane was made for endarterectomy. The plaque was then divided in the common carotid artery. An eversion endarterectomy of the external carotid was performed and the plaque feathered well distally. Thorough irrigation was undertaken. All bits of loose debris were removed. The patch was fashioned to the appropriate size and sutured along the edge of the arteriotomy. Prior to completing the anastomosis, backbleeding was off of all 3 major vessels and OPERATIVE REPORT [id number] EMMETT OLIVIA again the endarterectomy bed was thoroughly flushed with heparinized saline. Anastomosis completed, flow restored, first to the external carotid and then to the internal carotid. Interrupted sutures were used for hemostasis. Protamine was given. Thorough antibiotic irrigation was performed. A drain was placed through a separate stab wound. The neck was closed in 3 layers with Dermabond on the skin. Needle, sponge counts reported as correct. Anesthesia reversed. The patient to CV ICU stable. TRANSINT:[id number] Voice Confirmation ID: [id number] DOCUMENT ID: [id number] SARAH ESCAMILLA MD at 1029 CC: [id number] DICTATION DATE: 04/14/21 1534 DIRECTOR OF MANUFACTURING: 04/16/21 0052 ADM IN [facility] [address] [place] [address]
[2021-04-17] VITALS (14 sets, daily range): BP systolic 100–147; BP diastolic 58–76
[2021-04-17 04:18] LABS: BASOPHILS 0.6 % (0-2); EOSINOPHILS 0.2 % (0-7); HEMATOCRIT 27.3 % (36.0-48.0); HEMOGLOBIN 9.1 g/dL (12-16); MCH 31.7 pg (26.0-34.0); MCHC 33.4 g/dL (31.0-37.0); MCV 94.8 fL (80.0-100.0); MEAN PLATELET VOLUME 8.9 fL (7.4-10.4); MONOCYTES 12.5 % (2-11); NEUTROPHILS 71.7 % (40-80); PLATELET COUNT 129 10x3/uL (130-400); RBC 2.88 10x6/uL (4.00-5.40); RDW 15.9 % (11.5-14.5); WBC 5.8 10x3/uL (4.8-10.8)
[2021-04-17 04:32] LABS: ALBUMIN 2.8 g/dL (3.4-5.0); ANION GAP 5.3 mmol/L (8-16); BILIRUBIN - TOTAL 0.45 mg/dL (0.2-1.3); CALCIUM 8.5 mg/dL (8.5-10.1); CARBON DIOXIDE 34.3 mmol/L (21.0-32.0); CREATININE - SERUM 0.8 mg/dL (0.6-1.3); MAGNESIUM - SERUM 2.2 mg/dL (1.8-2.4); POTASSIUM - SERUM 4.6 mmol/L (3.5-5.1); PROTEIN - SERUM 5.8 g/dL (6.4-8.2)
--- NOTE | 2021-04-17 09:41 | NUR ---
Nutrition Follow-up: Poor PO intake; pt states "I don't feel like eating at all". Reports difficulty swallowing this AM; noted HERB GROWER eval ordered. C/o intermittent nausea. Diet: Cardiac, Carb Consistent PO intake: 10% x 3 meals yesterday Wt: 174# (04/17); 162# (04/16) Labs noted: Glu 113, Alb 2.8 Meds noted: Linzess, Protonix, Carafate, KDur, MagOx -Encourage PO intake and honor food preferences within diet restrictions; consistencies per ST. -If PO intake does not improve, rec consider nutrition support if medically feasible and/or desired. -RD follow-up: 04/21
--- NOTE | 2021-04-17 14:30 | NUR ---
WALKED 60 FT MIN ASSIT WITH WALKER MIN ASSIT TO STAND AND WALK
[2021-04-18] VITALS (10 sets, daily range): BP systolic 110–152; BP diastolic 54–94
[2021-04-18 04:22] LABS: ALBUMIN 2.8 g/dL (3.4-5.0); ALKALINE PHOSPHATASE 108 U/L (30-120); ALT (SGPT) 14 U/L (10-68); BILIRUBIN - TOTAL 0.56 mg/dL (0.2-1.3); CALC OSMOLALITY 272 mosm/kg (275-300); CALCIUM 8.7 mg/dL (8.5-10.1); CARBON DIOXIDE 33.2 mmol/L (21.0-32.0); CHLORIDE - SERUM 101 mmol/L (98-107); CREATININE - SERUM 0.7 mg/dL (0.6-1.3); GLUCOSE 99 mg/dL (74-106); POTASSIUM - SERUM 4.8 mmol/L (3.5-5.1); PROTEIN - SERUM 5.7 g/dL (6.4-8.2); SODIUM 137 mmol/L (136-145); UREA NITROGEN 9 mg/dL (7-18); eGFR NON AFRICAN AMERICAN 84 mL/min (90-120)
[2021-04-18 04:29] LABS: BASOPHILS 0.1 % (0-2); EOSINOPHILS 0.2 % (0-7); HEMATOCRIT 27.2 % (36.0-48.0); MCH 31.3 pg (26.0-34.0); MCHC 33.2 g/dL (31.0-37.0); MCV 94.2 fL (80.0-100.0); MEAN PLATELET VOLUME 9.2 fL (7.4-10.4); MONOCYTES 12.8 % (2-11); NEUTROPHILS 73.9 % (40-80); PLATELET COUNT 132 10x3/uL (130-400); RBC 2.88 10x6/uL (4.00-5.40); RDW 15.5 % (11.5-14.5); WBC 5.1 10x3/uL (4.8-10.8)
--- NOTE | 2021-04-18 08:42 | NUR ---
0800-AWAKENED PT FOR PA AND LAT-ASSISTED TO WHEELCHAIR- 0820-RETURNED FROM [facility] Shkola REPORTED-POOR BALANCE-ASSISTED TO RESTROOM WITH USE OF WHEELCHAIR-QUESTIONED PT ONMOBILITY IN ALF STATED WHEELCHAIR OR WALKER-
--- NOTE | 2021-04-18 08:50 | NUR ---
0886-ASSISTED PT WITH NHUNG-STATED R LOWER ABD PAIN-STATES CANT REMEMBER LAST BM- 0859-CALLED NURSE IN FOR NAUSEA
--- NOTE | 2021-04-18 09:18 | NUR ---
ZOFRAN GIVEN FOR C/O SEVERE NAUSEA-ASSISTED BACK TO BED -REFUSED AM PILLS AT THIS TIME STATED-WILL VOMIT THEM--UPDATE CALLED TO DAUGHTER JENNIFER OKAYED BY PT
--- NOTE | 2021-04-18 09:47 | NUR ---
DR JENSEN SPOKE WITH PT AND NURSE RELAYED TO DAUGHTER VIA TELEPHONE-PLAN TO MOVE TO MEDICAL FLOOR-NOT ABLE TO DISCHARGE TO ASSISTED LIVING SITUATION IS-CASE MANAGEMENT CONSULT TO FOLLOW
--- NOTE | 2021-04-18 10:33 | NUR ---
PATIENT WAS MIN ASST TO STAND AND TO WALK 5 FEET BACK TO BED. PATIENT WAS FEELING NAUSEATED AND NSG OK'D TO ASST PATIENT BTB.
[2021-04-19 00:53] VITALS: BP 138/60
--- NOTE | 2021-04-19 03:15 | NUR ---
I have reviewed this patient and I concur with the Shift Assessment completed by the Licensed Practical Nurse today this shift.
[2021-04-19 05:38] VITALS: BP 142/54
[2021-04-19 06:07] LABS: BASOPHILS 0.2 % (0-2); EOSINOPHILS 0.3 % (0-7); HEMATOCRIT 27.2 % (36.0-48.0); HEMOGLOBIN 9.3 g/dL (12-16); LYMPHOCYTES 14.1 % (15-50); MCH 31.9 pg (26.0-34.0); MCHC 34.2 g/dL (31.0-37.0); MCV 93.2 fL (80.0-100.0); MEAN PLATELET VOLUME 9.1 fL (7.4-10.4); MONOCYTES 13.3 % (2-11); NEUTROPHILS 72.1 % (40-80); PLATELET COUNT 155 10x3/uL (130-400); RBC 2.92 10x6/uL (4.00-5.40); RDW 15.8 % (11.5-14.5); WBC 4.7 10x3/uL (4.8-10.8)
[2021-04-19 06:21] LABS: ALBUMIN 2.9 g/dL (3.4-5.0); ALKALINE PHOSPHATASE 106 U/L (30-120); ALT (SGPT) 12 U/L (10-68); BILIRUBIN - TOTAL 0.42 mg/dL (0.2-1.3); CALC OSMOLALITY 271 mosm/kg (275-300); CALCIUM 8.8 mg/dL (8.5-10.1); CARBON DIOXIDE 30.1 mmol/L (21.0-32.0); CHLORIDE - SERUM 100 mmol/L (98-107); CREATININE - SERUM 0.7 mg/dL (0.6-1.3); GLUCOSE 105 mg/dL (74-106); POTASSIUM - SERUM 4.6 mmol/L (3.5-5.1); PROTEIN - SERUM 5.9 g/dL (6.4-8.2); SODIUM 137 mmol/L (136-145); UREA NITROGEN 8 mg/dL (7-18); eGFR NON AFRICAN AMERICAN 84 mL/min (90-120)
--- NOTE | 2021-04-19 08:20 | NUR ---
PATIENT IN BED WITH IV INTACT. NO COMPLAINTS OR SIGNS OF DISTRESS. EYES CLOSED RESTING QUIETLY. CALL LIGHT WITHIN REACH.
[2021-04-19 10:28] VITALS: BP 105/64
--- NOTE | 2021-04-19 11:30 | NUR ---
PATIENT SITTING UP IN CHAIR AT THIS TIME. IV INTACT. NO COMPLAINTS. FAMILY AT BEDSIDE. CALL LIGHT WITHIN REACH.
[2021-04-19 14:19] VITALS: BP 135/57
--- NOTE | 2021-04-19 15:00 | NUR ---
PATIENT IN CHAIR WITH NO COMPLAINTS AT THIS TIME. IV ITNACT. CALL LIGHT WITHIN REACH.
[2021-04-19 18:36] VITALS: BP 136/62
--- NOTE | 2021-04-19 18:45 | NUR ---
PATIENT IN BED RESTING QUIETLY AT THIS TIME. NO COMPLAINTS OR SIGNS OF DISTRESS. CALL LIGHT WITHIN REACH.
[2021-04-19 21:03] VITALS: BP 118/62
[2021-04-20] VITALS: BP 124/55
--- NOTE | 2021-04-20 02:57 | NUR ---
I have reviewed this patient and I concur with the Shift Assessment completed by the Licensed Practical Nurse today this shift.
[2021-04-20 04:00] VITALS: BP 148/66
[2021-04-20 06:56] LABS: BASOPHILS 0.3 % (0-2); EOSINOPHILS 0.3 % (0-7); HEMATOCRIT 28.8 % (36.0-48.0); HEMOGLOBIN 9.6 g/dL (12-16); LYMPHOCYTES 16.3 % (15-50); MCH 31.6 pg (26.0-34.0); MCHC 33.4 g/dL (31.0-37.0); MCV 94.5 fL (80.0-100.0); MEAN PLATELET VOLUME 9.1 fL (7.4-10.4); MONOCYTES 14.4 % (2-11); NEUTROPHILS 68.7 % (40-80); PLATELET COUNT 182 10x3/uL (130-400); RBC 3.05 10x6/uL (4.00-5.40); RDW 16.1 % (11.5-14.5); WBC 4.4 10x3/uL (4.8-10.8)
[2021-04-20 07:02] LABS: ALBUMIN 3.1 g/dL (3.4-5.0); ALKALINE PHOSPHATASE 108 U/L (30-120); ALT (SGPT) 11 U/L (10-68); BILIRUBIN - TOTAL 0.47 mg/dL (0.2-1.3); CALC OSMOLALITY 270 mosm/kg (275-300); CALCIUM 8.8 mg/dL (8.5-10.1); CARBON DIOXIDE 34.2 mmol/L (21.0-32.0); CHLORIDE - SERUM 100 mmol/L (98-107); CREATININE - SERUM 0.7 mg/dL (0.6-1.3); GLUCOSE 89 mg/dL (74-106); POTASSIUM - SERUM 5.2 mmol/L (3.5-5.1); PROTEIN - SERUM 6.1 g/dL (6.4-8.2); SODIUM 137 mmol/L (136-145); UREA NITROGEN 8 mg/dL (7-18); eGFR NON AFRICAN AMERICAN 84 mL/min (90-120)
--- NOTE | 2021-04-20 08:15 | NUR ---
PATIENT GAGGING AND STATED SHE IS NAUSEATED. ZOFRAN GIVEN. NO OTHER COMPLAINTS. FAMILY AT BEDSIDE. CALL LIGHT WITHIN REACH.
[2021-04-20 09:56] VITALS: BP 134/51
[2021-04-20 14:06] VITALS: BP 139/67
--- NOTE | 2021-04-20 15:30 | NUR ---
PATIENT AMBULATED IN EARL X 1 ASSIST 67 FEET WITH NO PROBLEMS. AMBULATED USING WALKER WITH O2 OFF. FAMILY AND AUTO CLUTCH SPECIALIST AT SIDE.
[2021-04-20 18:38] VITALS: BP 136/62
[2021-04-20 20:00] VITALS: BP 141/55
[2021-04-21] VITALS: BP 144/61
--- NOTE | 2021-04-21 01:42 | NUR ---
PATIENT APPEARED TO REST WELL THIS SHIFT, SHE IS CURRENTLY RESTING IN BED WITH HER EYES CLOSED.
[2021-04-21 04:00] VITALS: BP 142/68
[2021-04-21 06:24] LABS: BASOPHILS 0.4 % (0-2); EOSINOPHILS 0.6 % (0-7); HEMATOCRIT 27.4 % (36.0-48.0); HEMOGLOBIN 9.5 g/dL (12-16); LYMPHOCYTES 19.9 % (15-50); MCH 32.4 pg (26.0-34.0); MCHC 34.8 g/dL (31.0-37.0); MCV 93.1 fL (80.0-100.0); MEAN PLATELET VOLUME 9.2 fL (7.4-10.4); MONOCYTES 12.5 % (2-11); NEUTROPHILS 66.6 % (40-80); PLATELET COUNT 194 10x3/uL (130-400); RBC 2.94 10x6/uL (4.00-5.40); RDW 15.6 % (11.5-14.5); WBC 4.4 10x3/uL (4.8-10.8)
--- NOTE | 2021-04-21 07:15 | NUR ---
REC'D IN BED AWAKE AND ALERT. RESP EVEN AND UNLABORED WITH NO DISTRESS NOTED. CAN MAKE NEEDS AND WANTS KNOWN. DENIES ANY PAIN OR DISCOMFORT AT THIS TIME. ASSESSMENT COMPLETED. C/L IN REACH AT BEDSIDE.
[2021-04-21 07:16] LABS: ALKALINE PHOSPHATASE 108 U/L (30-120); ALT (SGPT) 12 U/L (10-68); BILIRUBIN - TOTAL 0.48 mg/dL (0.2-1.3); CALC OSMOLALITY 271 mosm/kg (275-300); CALCIUM 8.8 mg/dL (8.5-10.1); CARBON DIOXIDE 32.4 mmol/L (21.0-32.0); CHLORIDE - SERUM 100 mmol/L (98-107); CREATININE - SERUM 0.7 mg/dL (0.6-1.3); GLUCOSE 78 mg/dL (74-106); POTASSIUM - SERUM 4.6 mmol/L (3.5-5.1); PROTEIN - SERUM 5.9 g/dL (6.4-8.2); SODIUM 137 mmol/L (136-145); UREA NITROGEN 9 mg/dL (7-18); eGFR NON AFRICAN AMERICAN 84 mL/min (90-120)
[2021-04-21 10:02] VITALS: BP 136/47
--- NOTE | 2021-04-21 10:05 | NUR ---
WALKED WITH A WALKER 64 FT MIN ASSIT DIDNT WANT TO WALK MORE
--- NOTE | 2021-04-21 11:05 | NUR ---
I have reviewed this patient and I concur with the Shift Assessment completed by the Licensed Practical Nurse today this shift.
[2021-04-21 13:32] VITALS: BP 126/47
--- NOTE | 2021-04-21 16:00 | NUR ---
REPORT WAS CALLED AND GIVEN TO LOLI AT [facility]. PT STABLE CONDITION UPON DEPARTURE WITH DAUGHTER TRANPORTING PT BACK BY PERSONAL VECHILCE.
--- NOTE | 2021-04-21 16:16 | NUR ---
CENTRAL LINE TO LEFT SUBCLAVIAN D/C WITHOUT DIFFICULTY. 15CM OF TUBING ON LINE, TIP INTACT.
--- NOTE | 2021-04-21 19:25 | MORECARE ---
CASE MANAGEMENT DISCHARGE SUMMARY PATIENT: EMMETT OLIVIA UNIT: [id number] ADM DATE: 04/09/21 AGE: 86 : 35 SEX: F ROOM/BED: D.2224 AUTHOR: MJ,DOC PHYSICIAN: REFERRING PHYSICIAN: ARMAND GAONA MD DATE OF SERVICE: 04/21/21 Case Management Discharge Planning Summary COMMENTS ENTERED DATE: 04/16/21 12:04 CT COMMENT TYPE: Discharge Planning REVIEWER: Molly Meadows CM RECEIVED A TELEPHONE CALL FROM THE PATIENT'S DAUGHTER, JENNIFER. SHE HAD SPOKEN WITH HER SISTER WHO STATED THE PATIENT MAYBE DISCHARGED TOMORROW. SHE ADVISES THAT HER MOTHER WILL BE RETURNING TO [facility] IN [place]. SHE HAD ALREADY SPOKEN WITH ROC[facility]O AT [facility]. SHE WAS CONCERNED ABOUT THE DISCHARGE COMMUNICATION PROCESS. MAX EXPLAINED WE WOULD ADVISE [facility] WHEN DISCHARGE ORDER WAS RECEIVED. EXPLAINED WE WOULD FORWARD CLINICAL INFORMATION W/ DISCHARGE INSTRUCTION AND MED LIST BY FAX. SHE HAD NO ADDITIONAL CONCERNS OR QUESTIONS. MAX CALLED [facility] TO TOUCH BASE WITH THE STAFF. ADVISED OF POSSIBLE DISCHARGE. MAX SPOKE W/ [facility] AT [phone]. FAX IS [phone]. EXPLAINED THE PATIENT IS ON OXYGEN 5/L AT PRESENT TIME. THE DAUGHTER STATED SHE WAS ON OXYGEN AT [facility] PRIMARILY AT NIGHT. [facility] CONFIRMED PATIENT IS ON OXYGEN PRIMARILY AT NIGHT AND PERIODICALLY DURING THE DAY. SHE DID NOT KNOW THE LITER FLOW. THE PATIENT DOES HAVE DIMINISHED EYESIGHT. HAS NO OTHER COMMUNICATION OR SENSORY ISSUES. THE PATIENT AMBULATES IN HER ROOM WITH THE WALKER. SHE UTILIZES THE WHEELCHAIR WHEN SHE LEAVES HER ROOM. SHE IS PRIMARILY STANDBY ASSIST WITH BATHING AND DRESSING. SHE OFTEN IS RESTING IN BED. GARDENIA STATES SHE "THINKS" THE PATIENT UTILIZES [facility] FOR HER MEDICATIONS. MAX WILL FOLLOWUP WITH THE PATIENT OR DAUGHTERS. PRP REVIEW SUMMARY ANTICIPATED D/C DATE: EXPECTED LOS : CASE STATUS: DCP Initiated INITIAL REVIEW: 04/09/2021 INITIAL REVIEWER: Amie Olsen FINAL DISCHARGE DISPOSITION: : FINAL REVIEWER: FINAL REVIEW DATE: DCP Focus Questions & Answers DCP Evaluation QUESTION: ANSWER Patient and/or caregiver agree upon recommended discharge plan? : Yes Patient's current cognitive status: : Intermittently confused / memory changes Patient's ability to cope with chronic illness : d. No chronic illness Does the patient have the ability to pay for or attain post discharge needs / services? : Yes Functional screen assessment: : Unable to manage ADLs without immediate ongoing assistance Physical Status: : Partial care dependence Is there a likelihood that the patient will require additional services to return to the preadmission environment? : Yes Living Arrangements: : Assisted Living Partial Dependence, assistance required for: : Eating Partial Dependence, assistance required for: : Dressing Partial Dependence, assistance required for: : Bathing Partial Dependence, assistance required for: : Ambulation / Mobility Results of this evaluation have been discussed with: : Family Patient with capacity for self-care or can be cared for in same environment as prior to hospitalization? : Yes Baseline cognitive status: : *Oriented to person, place, situation, time and present Facility / Agency name and contact information from Question 3 (if applicable): : [facility] Would patient like to participate in any Care Coordination programs (if applicable): : Not applicable Equipment in use: : Wheelchair Mental health screen: : No mental health history DCP Re-evaluation QUESTION: ANSWER Would patient like to participate in any Care Coordination programs (if applicable): : Not applicable PATIENT: EMMETT OLIVIA ENCOUNTER: [id number] MEDICAL RECORD#: [id number] ADMISSION DATE: 04/09/2021 DISCHARGE DATE: 04/21/2021 ATTENDING MD: ARMAND FRANKLIN : AGE: 86 MARITAL STATUS: W DC PLAN ID: [id number] FACILITY: [facility] PRINTED ON: 04/21/21 19:25 CT All edits/amendments must be made on the electronic document DICTATION DATE: 04/21/211924 CLOTH BALER: DUONG 04/21/211924 RPT#: [id number] DC DATE:04/21/21 STATUS: DIS IN [facility] [address] [place] [address] END OF REPORT
--- NOTE | 2021-04-21 19:35 | MORECARE ---
CASE MANAGEMENT DISCHARGE SUMMARY PATIENT: EMMETT OLIVIA UNIT: [id number] ADM DATE: 04/09/21 AGE: 86 : 35 SEX: F ROOM/BED: D.2224 AUTHOR: MJ,DOC PHYSICIAN: REFERRING PHYSICIAN: ARMAND GAONA MD DATE OF SERVICE: 04/21/21 Case Management Discharge Planning Summary COMMENTS ENTERED DATE: 04/21/21 19:23 CT COMMENT TYPE: Discharge Planning REVIEWER: Amie Olsen CM received discharge orders for patient to return to [facility]. CM called to ask about transportation back to facility and what will need to be done. Daughter will transport patient back to facility. Nursing to call report and CM will fax records. D/C IMM signed ENTERED DATE: 04/16/21 12:04 CT COMMENT TYPE: Discharge Planning REVIEWER: Molly Meadows CM RECEIVED A TELEPHONE CALL FROM THE PATIENT'S DAUGHTER, JENNIFER. SHE HAD SPOKEN WITH HER SISTER WHO STATED THE PATIENT MAYBE DISCHARGED TOMORROW. SHE ADVISES THAT HER MOTHER WILL BE RETURNING TO [facility] IN [place]. SHE HAD ALREADY SPOKEN WITH ROCÍO AT [facility]. SHE WAS CONCERNED ABOUT THE DISCHARGE COMMUNICATION PROCESS. MAX EXPLAINED WE WOULD ADVISE [facility] WHEN DISCHARGE ORDER WAS RECEIVED. EXPLAINED WE WOULD FORWARD CLINICAL INFORMATION W/ DISCHARGE INSTRUCTION AND MED LIST BY FAX. SHE HAD NO ADDITIONAL CONCERNS OR QUESTIONS. MAX CALLED [facility] TO TOUCH BASE WITH THE STAFF. ADVISED OF POSSIBLE DISCHARGE. MAX SPOKE W/ [facility] AT [phone]. FAX IS [phone]. EXPLAINED THE PATIENT IS ON OXYGEN 5/L AT PRESENT TIME. THE DAUGHTER STATED SHE WAS ON OXYGEN AT [facility] PRIMARILY AT NIGHT. [facility] CONFIRMED PATIENT IS ON OXYGEN PRIMARILY AT NIGHT AND PERIODICALLY DURING THE DAY. SHE DID NOT KNOW THE LITER FLOW. THE PATIENT DOES HAVE DIMINISHED EYESIGHT. HAS NO OTHER COMMUNICATION OR SENSORY ISSUES. THE PATIENT AMBULATES IN HER ROOM WITH THE WALKER. SHE UTILIZES THE WHEELCHAIR WHEN SHE LEAVES HER ROOM. SHE IS PRIMARILY STANDBY ASSIST WITH BATHING AND DRESSING. SHE OFTEN IS RESTING IN BED. G[place]EN[facility] STATES SHE "THINKS" THE PATIENT UTILIZES [facility] FOR HER MEDICATIONS. CM WILL FOLLOWUP WITH THE PATIENT OR DAUGHTERS. [facility] REVIEW SUMMARY ANTICIPATED D/C DATE: EXPECTED LOS : CASE STATUS: DCP Initiated INITIAL REVIEW: 04/09/2021 INITIAL REVIEWER: Amie Olsen FINAL DISCHARGE DISPOSITION: : FINAL REVIEWER: FINAL REVIEW DATE: DCP Focus Questions & Answers DCP Evaluation QUESTION: ANSWER Patient and/or caregiver agree upon recommended discharge plan? : Yes Patient's current cognitive status: : Intermittently confused / memory changes Patient's ability to cope with chronic illness : d. No chronic illness Does the patient have the ability to pay for or attain post discharge needs / services? : Yes Functional screen assessment: : Unable to manage ADLs without immediate ongoing assistance Physical Status: : Partial care dependence Is there a likelihood that the patient will require additional services to return to the preadmission environment? : Yes Living Arrangements: : Assisted Living Partial Dependence, assistance required for: : Eating Partial Dependence, assistance required for: : Dressing Partial Dependence, assistance required for: : Bathing Partial Dependence, assistance required for: : Ambulation / Mobility Results of this evaluation have been discussed with: : Family Patient with capacity for self-care or can be cared for in same environment as prior to hospitalization? : Yes Baseline cognitive status: : *Oriented to person, place, situation, time and present Facility / Agency name and contact information from Question 3 (if applicable): : [facility] Would patient like to participate in any Care Coordination programs (if applicable): : Not applicable Equipment in use: : Wheelchair Mental health screen: : No mental health history DCP Re-evaluation QUESTION: ANSWER Would patient like to participate in any Care Coordination programs (if applicable): : Not applicable PATIENT: EMMETT OLIVIA ENCOUNTER: [id number] MEDICAL RECORD#: [id number] ADMISSION DATE: 04/09/2021 DISCHARGE DATE: 04/21/2021 ATTENDING MD: ARMAND FRANKLIN : AGE: 86 MARITAL STATUS: W DC PLAN ID: [id number] FACILITY: [facility] PRINTED ON: 04/21/21 19:35 CT All edits/amendments must be made on the electronic document DICTATION DATE: 04/21/211934 SCHEDULING AGENT: DUONG 04/21/211934 RPT#: [id number] DC DATE:04/21/21 STATUS: DIS IN [facility] [address] [facility] [place] [address] END OF REPORT
--- NOTE | 2021-04-22 08:25 | MORECARE ---
CASE MANAGEMENT DISCHARGE SUMMARY PATIENT: EMMETT OLIVIA UNIT: [id number] ADM DATE: 04/09/21 AGE: 86 : 35 SEX: F ROOM/BED: D.2224 AUTHOR: MJ,DOC PHYSICIAN: REFERRING PHYSICIAN: ARMAND GAONA MD DATE OF SERVICE: 04/22/21 Case Management Discharge Planning Summary COMMENTS ENTERED DATE: 04/21/21 19:23 CT COMMENT TYPE: Discharge Planning REVIEWER: Amie Olsen CM received discharge orders for patient to return to [facility]. CM called to ask about transportation back to facility and what will need to be done. Daughter will transport patient back to facility. Nursing to call report and CM will fax records. D/C IMM signed ENTERED DATE: 04/16/21 12:04 CT COMMENT TYPE: Discharge Planning REVIEWER: Molly Meadows CM RECEIVED A TELEPHONE CALL FROM THE PATIENT'S DAUGHTER, JENNIFER. SHE HAD SPOKEN WITH HER SISTER WHO STATED THE PATIENT MAYBE DISCHARGED TOMORROW. SHE ADVISES THAT HER MOTHER WILL BE RETURNING TO [facility] IN [place]. SHE HAD ALREADY SPOKEN WITH ROCÍO AT [facility]. SHE WAS CONCERNED ABOUT THE DISCHARGE COMMUNICATION PROCESS. MAX EXPLAINED WE WOULD ADVISE [facility] WHEN DISCHARGE ORDER WAS RECEIVED. EXPLAINED WE WOULD FORWARD CLINICAL INFORMATION W/ DISCHARGE INSTRUCTION AND MED LIST BY FAX. SHE HAD NO ADDITIONAL CONCERNS OR QUESTIONS. MAX CALLED [facility] TO TOUCH BASE WITH THE STAFF. ADVISED OF POSSIBLE DISCHARGE. MAX SPOKE W/ [facility] AT [phone]. FAX IS [phone]. EXPLAINED THE PATIENT IS ON OXYGEN 5/L AT PRESENT TIME. THE DAUGHTER STATED SHE WAS ON OXYGEN AT [facility] PRIMARILY AT NIGHT. [facility] CONFIRMED PATIENT IS ON OXYGEN PRIMARILY AT NIGHT AND PERIODICALLY DURING THE DAY. SHE DID NOT KNOW THE LITER FLOW. THE PATIENT DOES HAVE DIMINISHED EYESIGHT. HAS NO OTHER COMMUNICATION OR SENSORY ISSUES. THE PATIENT AMBULATES IN HER ROOM WITH THE WALKER. SHE UTILIZES THE WHEELCHAIR WHEN SHE LEAVES HER ROOM. SHE IS PRIMARILY STANDBY ASSIST WITH BATHING AND DRESSING. SHE OFTEN IS RESTING IN BED. G[place]EN[facility] STATES SHE "THINKS" THE PATIENT UTILIZES [facility] FOR HER MEDICATIONS. CM WILL FOLLOWUP WITH THE PATIENT OR DAUGHTERS. [facility] REVIEW SUMMARY ANTICIPATED D/C DATE: EXPECTED LOS : CASE STATUS: DCP Initiated INITIAL REVIEW: 04/09/2021 INITIAL REVIEWER: Amie Olsen FINAL DISCHARGE DISPOSITION: : FINAL REVIEWER: FINAL REVIEW DATE: DCP Focus Questions & Answers DCP Evaluation QUESTION: ANSWER Patient's ability to cope with chronic illness : d. No chronic illness Patient's current cognitive status: : Intermittently confused / memory changes Patient and/or caregiver agree upon recommended discharge plan? : Yes Physical Status: : Partial care dependence Functional screen assessment: : Unable to manage ADLs without immediate ongoing assistance Does the patient have the ability to pay for or attain post discharge needs / services? : Yes Partial Dependence, assistance required for: : Ambulation / Mobility Partial Dependence, assistance required for: : Bathing Partial Dependence, assistance required for: : Dressing Partial Dependence, assistance required for: : Eating Living Arrangements: : Assisted Living Is there a likelihood that the patient will require additional services to return to the preadmission environment? : Yes Baseline cognitive status: : *Oriented to person, place, situation, time and present Patient with capacity for self-care or can be cared for in same environment as prior to hospitalization? : Yes Results of this evaluation have been discussed with: : Family Facility / Agency name and contact information from Question 3 (if applicable): : [facility] Would patient like to participate in any Care Coordination programs (if applicable): : Not applicable Equipment in use: : Wheelchair Mental health screen: : No mental health history DCP Re-evaluation QUESTION: ANSWER Would patient like to participate in any Care Coordination programs (if applicable): : Not applicable PATIENT: EMMETT OLIVIA ENCOUNTER: [id number] MEDICAL RECORD#: [id number] ADMISSION DATE: 04/09/2021 DISCHARGE DATE: 04/21/2021 ATTENDING MD: ARMAND FRANKLIN : AGE: 86 MARITAL STATUS: W DC PLAN ID: [id number] FACILITY: PRINTED ON: 04/22/21 8:24 CT All edits/amendments must be made on the electronic document DICTATION DATE: 04/22/21823 DIRECTOR QUALITY ASSURANCE: DUONG 04/22/21823 RPT#: [id number] DC DATE:04/21/21 STATUS: DIS [address] [place] [address] END OF REPORT
--- NOTE | 2021-04-22 09:38 | MORECARE ---
CASE MANAGEMENT DISCHARGE SUMMARY PATIENT: EMMETT OLIVIA UNIT: [id number] ADM DATE: 04/09/21 AGE: 86 : 35 SEX: F ROOM/BED: D.2224 AUTHOR: MJ,DOC PHYSICIAN: REFERRING PHYSICIAN: ARMAND GAONA MD DATE OF SERVICE: 04/22/21 Case Management Discharge Planning Summary COMMENTS ENTERED DATE: 04/21/21 19:23 CT COMMENT TYPE: Discharge Planning REVIEWER: Amie Olsen CM received discharge orders for patient to return to [facility]. CM called to ask about transportation back to facility and what will need to be done. Daughter will transport patient back to facility. Nursing to call report and CM will fax records. D/C IMM signed ENTERED DATE: 04/16/21 12:04 CT COMMENT TYPE: Discharge Planning REVIEWER: Molly Meadows CM RECEIVED A TELEPHONE CALL FROM THE PATIENT'S DAUGHTER, JENNIFER. SHE HAD SPOKEN WITH HER SISTER WHO STATED THE PATIENT MAYBE DISCHARGED TOMORROW. SHE ADVISES THAT HER MOTHER WILL BE RETURNING TO [facility] IN [place]. SHE HAD ALREADY SPOKEN WITH ROC[facility]O AT [facility]. SHE WAS CONCERNED ABOUT THE DISCHARGE COMMUNICATION PROCESS. MAX EXPLAINED WE WOULD ADVISE [facility] WHEN DISCHARGE ORDER WAS RECEIVED. EXPLAINED WE WOULD FORWARD CLINICAL INFORMATION W/ DISCHARGE INSTRUCTION AND MED LIST BY FAX. SHE HAD NO ADDITIONAL CONCERNS OR QUESTIONS. MAX CALLED [facility] TO TOUCH BASE WITH THE STAFF. ADVISED OF POSSIBLE DISCHARGE. MAX SPOKE W/ [facility] AT [phone]. FAX IS [phone]. EXPLAINED THE PATIENT IS ON OXYGEN 5/L AT PRESENT TIME. THE DAUGHTER STATED SHE WAS ON OXYGEN AT [facility] [facility] PRIMARILY AT NIGHT. [facility] CONFIRMED PATIENT IS ON OXYGEN PRIMARILY AT NIGHT AND PERIODICALLY DURING THE DAY. SHE DID NOT KNOW THE LITER FLOW. THE PATIENT DOES HAVE DIMINISHED EYESIGHT. HAS NO OTHER COMMUNICATION OR SENSORY ISSUES. THE PATIENT AMBULATES IN HER ROOM WITH THE WALKER. SHE UTILIZES THE WHEELCHAIR WHEN SHE LEAVES HER ROOM. SHE IS PRIMARILY STANDBY ASSIST WITH BATHING AND DRESSING. SHE OFTEN IS RESTING IN BED. [facility] STATES SHE "THINKS" THE PATIENT UTILIZES [facility] FOR HER MEDICATIONS. CM WILL FOLLOWUP WITH THE PATIENT OR DAUGHTERS. [facility] REVIEW SUMMARY ANTICIPATED D/C DATE: EXPECTED LOS : CASE STATUS: DCP Initiated INITIAL REVIEW: 04/09/2021 INITIAL REVIEWER: Amie Olsen FINAL DISCHARGE DISPOSITION: : FINAL REVIEWER: FINAL REVIEW DATE: DCP Focus Questions & Answers DCP Evaluation QUESTION: ANSWER Patient's ability to cope with chronic illness : d. No chronic illness Patient's current cognitive status: : Intermittently confused / memory changes Patient and/or caregiver agree upon recommended discharge plan? : Yes Physical Status: : Partial care dependence Functional screen assessment: : Unable to manage ADLs without immediate ongoing assistance Does the patient have the ability to pay for or attain post discharge needs / services? : Yes Partial Dependence, assistance required for: : Ambulation / Mobility Partial Dependence, assistance required for: : Bathing Partial Dependence, assistance required for: : Dressing Partial Dependence, assistance required for: : Eating Living Arrangements: : Assisted Living Is there a likelihood that the patient will require additional services to return to the preadmission environment? : Yes Baseline cognitive status: : *Oriented to person, place, situation, time and present Patient with capacity for self-care or can be cared for in same environment as prior to hospitalization? : Yes Results of this evaluation have been discussed with: : Family Facility / Agency name and contact information from Question 3 (if applicable): : [facility] Would patient like to participate in any Care Coordination programs (if applicable): : Not applicable Equipment in use: : Wheelchair Mental health screen: : No mental health history DCP Re-evaluation QUESTION: ANSWER Would patient like to participate in any Care Coordination programs (if applicable): : Not applicable PATIENT: EMMETT OLIVIA ENCOUNTER: [id number] MEDICAL RECORD#: [id number] ADMISSION DATE: 04/09/2021 DISCHARGE DATE: 04/21/2021 ATTENDING MD: ARMAND FRANKLIN : AGE: 86 MARITAL STATUS: W DC PLAN ID: [id number] FACILITY: [facility] PRINTED ON: 04/22/21 9:38 CT All edits/amendments must be made on the electronic document DICTATION DATE: 04/22/21937 BARIATRIC PHYSICIAN: DUONG 04/22/21937 RPT#: [id number] DC DATE:04/21/21 STATUS: DIS IN [facility] [address] [address] END OF REPORT
== END 2021-04-21 16:21 | DRG 39 ==
LOC: D.ER 22:16 → D.M2 04-09 04:00 → D.CVICU 04-09 04:00 → D.MS 04-18 11:59
PROVIDERS: Emergency Medicine; Family Medicine; Thoracic Surgery (Cardiothoracic Vascular Surgery); ADMIT Family Medicine; ATTEND Family Medicine
PROC: 03CK0ZZ Extirpation of Matter from Right Internal Carotid Artery, Open Approach (ICD-10-PCS; principal; 2021-04-14 09:00)
DX: I65.21 Occlusion and stenosis of right carotid artery (principal); R41.82 Altered mental status, unspecified; J44.9 Chronic obstructive pulmonary disease, unspecified; E11.9 Type 2 diabetes mellitus without complications; I10 Essential (primary) hypertension; I25.10 Atherosclerotic heart disease of native coronary artery without angina pectoris; E78.5 Hyperlipidemia, unspecified; E03.9 Hypothyroidism, unspecified; I65.01 Occlusion and stenosis of right vertebral artery; E87.6 Hypokalemia; E83.42 Hypomagnesemia; D69.6 Thrombocytopenia, unspecified; Z85.3 Personal history of malignant neoplasm of breast

== ENCOUNTER 2021-04-23 18:56 | Inpatient (IN) | payer MEDICARE, BC ==
[~2021-04-23] VITALS: Ht 154.9 cm; Wt 67.3 kg
[~2021-04-23 18:56] MED LIST changes: -COUMADIN3 MG; +IPRAT-ALBUT 0.5-3 ML; +WARFARIN SODIUM6 MG PO
[2021-04-23 20:13] VITALS: BP 107/59
[2021-04-23 20:30] VITALS: BP 98/49
[2021-04-23 21:00] VITALS: BP 133/65
[2021-04-23 21:04] LABS: BASOPHILS 0.4 % (0-2); EOSINOPHILS 0.2 % (0-7); HEMATOCRIT 29.3 % (36.0-48.0); HEMOGLOBIN 9.8 g/dL (12-16); LYMPHOCYTES 16.6 % (15-50); MCH 31.4 pg (26.0-34.0); MCHC 33.4 g/dL (31.0-37.0); MEAN PLATELET VOLUME 8.7 fL (7.4-10.4); MONOCYTES 8.4 % (2-11); NEUTROPHILS 74.4 % (40-80); PLATELET COUNT 212 10x3/uL (130-400); RBC 3.12 10x6/uL (4.00-5.40); RDW 16.3 % (11.5-14.5); WBC 5.9 10x3/uL (4.8-10.8)
[2021-04-23 21:09] LABS: INR 1.14 (0.85-1.17); PROTIME 13.5 SECONDS (11.6-15.0)
[2021-04-23 21:10] LABS: APTT 30.2 SECONDS (22.8-39.4)
[2021-04-23 21:15] LABS: ANION GAP 9.2 mmol/L (8-16); CARBON DIOXIDE 33.4 mmol/L (21.0-32.0); CREATININE - SERUM 1.4 mg/dL (0.6-1.3); POTASSIUM - SERUM 4.6 mmol/L (3.5-5.1)
[2021-04-23 21:22] LABS: ALBUMIN 3.5 g/dL (3.4-5.0); BILIRUBIN - TOTAL 0.41 mg/dL (0.2-1.3); PROTEIN - SERUM 6.4 g/dL (6.4-8.2)
[2021-04-23 22:00] VITALS: BP 120/50
--- NOTE | 2021-04-23 23:00 | NUR ---
ADMITTED TO ROOM FROM ER, ALERT BUT CONFUSED, JESSICA WRAP AND CAST TO LEFT LOWER LEG, SEE SHIFT ASSESSMENT, FALL PRECAUTIONS IN PLACE, BED ALARM ON
[2021-04-24 02:07] VITALS: BP 130/40; BMI 28.0
[2021-04-24 04:00] VITALS: BP 136/64
[2021-04-24 05:49] LABS: BASOPHILS 0.8 % (0-2); EOSINOPHILS 0.1 % (0-7); HEMATOCRIT 28.1 % (36.0-48.0); HEMOGLOBIN 9.4 g/dL (12-16); LYMPHOCYTES 8.3 % (15-50); MCH 31.5 pg (26.0-34.0); MCHC 33.6 g/dL (31.0-37.0); MCV 93.9 fL (80.0-100.0); MEAN PLATELET VOLUME 8.9 fL (7.4-10.4); MONOCYTES 8.6 % (2-11); NEUTROPHILS 82.2 % (40-80); PLATELET COUNT 214 10x3/uL (130-400); RBC 2.99 10x6/uL (4.00-5.40); RDW 16.1 % (11.5-14.5)
[2021-04-24 05:57] LABS: WBC 10.1 10x3/uL (4.8-10.8)
[2021-04-24 06:14] LABS: % SATURATION 14 % (15-55); IRON 41 ug/dl (35-150); TOTAL IRON BIND CAPACITY 278 ug/dl (260-445); UNSAT IRON BIND CAPACITY 237 ug/dl (150-375)
[2021-04-24 07:06] LABS: ALBUMIN 3.6 g/dL (3.4-5.0); ALKALINE PHOSPHATASE 137 U/L (30-120); ALT (SGPT) 14 U/L (10-68); BILIRUBIN - TOTAL 0.48 mg/dL (0.2-1.3); CALCIUM 8.9 mg/dL (8.5-10.1); CARBON DIOXIDE 34.2 mmol/L (21.0-32.0); CHLORIDE - SERUM 98 mmol/L (98-107); CKMB 1.4 U/L (0.0-3.6); CREATINE KINASE 77 UL (21-215); CREATININE - SERUM 1.3 mg/dL (0.6-1.3); FERRITIN 32 ng/mL (3-244); POTASSIUM - SERUM 4.3 mmol/L (3.5-5.1); PROTEIN - SERUM 6.5 g/dL (6.4-8.2); SODIUM 138 mmol/L (136-145); UREA NITROGEN 16 mg/dL (7-18); eGFR NON AFRICAN AMERICAN 41 mL/min (90-120)
[2021-04-24 07:11] LABS: CALC OSMOLALITY 274 mosm/kg (275-300); GLUCOSE 58 mg/dL (74-106); TROPONIN-I < 0.017 ng/mL (0.000-0.060)
[2021-04-24 08:46] VITALS: BP 85/36
--- NOTE | 2021-04-24 08:47 | NUR ---
22 gauge iv started in the left forearm x 1 stick, flushed without any difficulty secured with tape and tegaderm.
[2021-04-24 10:33] VITALS: Ht 154.9 cm; Wt 67.3 kg
--- NOTE | 2021-04-24 13:04 | NUR ---
REHAB PRESCREEN RECEIVED. SHE WILL BE HAVING SURGERY IN THE MORNING, AND WE WILL HAVE TO WAIT AND LOOK AT HER AFTER SHE RECEIVES THERAPY. IF SHE MEETS CRITERIA, THE EARLIEST WE COULD TAKE HER WOULD BE WEDNESDAY. I WILL MAKE SURE THE WEEKEND PRODUCTION SPECIALIST, SHERRIE, IS AWARE. THANK YOU FOR THIS REFERRAL. PARTHA MORENO RN CLINICAL LIAISON, INPATIENT REHAB.
[2021-04-24 13:10] VITALS: BP 114/62
[2021-04-24 17:55] VITALS: BP 92/47
[2021-04-24 20:00] VITALS: BP 102/40
--- NOTE | 2021-04-24 20:00 | NUR ---
ALERT RESTING IN BED, CONFUSED AT TIMES, JESSICA WRAP CAST TO LEFT LOWER LEG INTACT, DENIES NEEDS AT THIS TIME, CALL RADHA BHATTI REACH, FALL PRECAUTIONS AND BED ALARM IN USE
[2021-04-25] VITALS (13 sets, daily range): BP systolic 96–138; BP diastolic 28–84
[2021-04-25 06:04] LABS: BASOPHILS 0.5 % (0-2); EOSINOPHILS 0.1 % (0-7); HEMATOCRIT 25.5 % (36.0-48.0); HEMOGLOBIN 8.5 g/dL (12-16); LYMPHOCYTES 13.5 % (15-50); MCH 32.1 pg (26.0-34.0); MCHC 33.3 g/dL (31.0-37.0); MEAN PLATELET VOLUME 9.6 fL (7.4-10.4); NEUTROPHILS 68.9 % (40-80); RBC 2.64 10x6/uL (4.00-5.40); RDW 16.3 % (11.5-14.5)
[2021-04-25 06:36] LABS: ANION GAP 11.7 mmol/L (8-16); BILIRUBIN - TOTAL 0.32 mg/dL (0.2-1.3); CALCIUM 8.2 mg/dL (8.5-10.1); CARBON DIOXIDE 28.4 mmol/L (21.0-32.0); MAGNESIUM - SERUM 1.9 mg/dL (1.8-2.4); POTASSIUM - SERUM 4.1 mmol/L (3.5-5.1); PROTEIN - SERUM 5.5 g/dL (6.4-8.2)
[2021-04-25 06:38] LABS: MCV 96.5 fL (80.0-100.0); PLATELET COUNT 157 10x3/uL (130-400); WBC 6.2 10x3/uL (4.8-10.8)
[2021-04-25 06:42] LABS: CREATININE - SERUM 0.9 mg/dL (0.6-1.3)
--- NOTE | 2021-04-25 08:43 | NUR ---
PT EASILY AWAKENED. BED ALARM ON. NO NEEDS AT THIS TIME. WCTM
--- NOTE | 2021-04-25 10:00 | NUR ---
ATTEMPTED TO CATCH URINE WITH NEW BED NOLEN. PT COULD NOT WAIT. CL IN REACH. WCTM
--- NOTE | 2021-04-25 10:52 | NUR ---
DAUGHTER JENNIFER IN ROOM. PT PREOPED AND HEADED TO SURGERY
--- NOTE | 2021-04-25 15:29 | NUR ---
PT RESTING AFTER SURGERY. CL IN REACH. BED ALARM ON. NO NEEDS AT THIS TIME. FAMILY WENT TO GET FOOD. WCTM
[2021-04-26 06:40] LABS: HEMATOCRIT 25.6 % (36.0-48.0); HEMOGLOBIN 8.3 g/dL (12-16); MCH 31.4 pg (26.0-34.0); MCHC 32.5 g/dL (31.0-37.0); MCV 96.6 fL (80.0-100.0); MEAN PLATELET VOLUME 9.3 fL (7.4-10.4); PLATELET COUNT 166 10x3/uL (130-400); RBC 2.65 10x6/uL (4.00-5.40); RDW 16.1 % (11.5-14.5); WBC 7.3 10x3/uL (4.8-10.8)
[2021-04-26 07:11] LABS: ALBUMIN 2.7 g/dL (3.4-5.0); ALKALINE PHOSPHATASE 118 U/L (30-120); ALT (SGPT) 12 U/L (10-68); BILIRUBIN - TOTAL 0.34 mg/dL (0.2-1.3); CALC OSMOLALITY 274 mosm/kg (275-300); CALCIUM 7.7 mg/dL (8.5-10.1); CARBON DIOXIDE 24.8 mmol/L (21.0-32.0); CHLORIDE - SERUM 104 mmol/L (98-107); CREATININE - SERUM 0.7 mg/dL (0.6-1.3); GLUCOSE 90 mg/dL (74-106); MAGNESIUM - SERUM 1.7 mg/dL (1.8-2.4); PROTEIN - SERUM 5.3 g/dL (6.4-8.2); SODIUM 138 mmol/L (136-145); eGFR NON AFRICAN AMERICAN 84 mL/min (90-120)
[2021-04-26 07:12] LABS: UREA NITROGEN 10 mg/dL (7-18)
--- NOTE | 2021-04-26 07:53 | NUR ---
AWAKE AND ALERT. ORIENTED X3. NO C/O AT THIS TIME. LUNGS ARE CLEAR BILATERALLY, NO COUGH NOTED. SKIN IS INTACT WITHOUT REDNESS EXCEPT INCISION TO LEFT LE WHICH HAS A DRY INTACT DRESSING IN PLACE. SL TO RIGHT FA AND IV TO LEFT FOREARM ARE PATENT WITHOUT REDNESS AT INSERTION SITE. DENIES NEEDS.
[2021-04-26 08:19] LABS: EOSINOPHILS 1 % (0-7); LYMPHOCYTES 20 % (15-50); NEUTROPHILS 77 % (40-80); PLATELET ESTIMATE NORMAL
--- NOTE | 2021-04-26 09:04 | OP ---
PATIENT NAME: MENA EASLEY MEDICAL RECORD: [id number] :35 LOCATION:[id number] ADMISSION DATE:04/23/21 SURGEON: MIKE COPPOLA DO DATE OF OPERATION: 04/25/2021 PROCEDURE PERFORMED: Left tibia intramedullary nailing. PREOPERATIVE DIAGNOSIS: Left tibial shaft fracture. POSTOPERATIVE DIAGNOSIS: Left tibial shaft fracture. INDICATIONS: Ms. Mena Easley is an 86-year-old female who fell and twisted her left lower leg and felt a pop and then was brought to the ER. She just had a carotid artery done last week, I believe. She was seen to have a midshaft tibia fracture. She was admitted for pain control and put on the surgery schedule for today for intramedullary nailing and talked to her daughter about the risks and benefits of the procedure including infection, bleeding, damage to nerve and vessel, need for further surgery, malunion, nonunion, continued pain, blood clots and even and she signed the consent. SURGEON: Mike Coppola DO. DESCRIPTION OF PROCEDURE: The patient was taken to the operative suite, laid in supine position, given general anesthetic and 2 grams of Ancef. She has had an LMA placed. The left lower extremity was prepped and draped in sterile fashion. A timeout was performed. Everyone was in agreement with correct side, site, patient and procedure. I then made an incision over the anterior knee and made careful dissection down to the knee joint after going through the patellar tendon and removing a part of the fat pad. I then got the starting point with a starting pin on AP and lateral and with opening reamer then reamed, while Smooth Mccurdy, certified surgical services manager, held the fracture reduced, reamed up to a 14 and put a 12 x 320 nail down. I then reduced the fracture nicely. I then proximally put 2 screws in, one in dynamic, one in static hole. I then locked the nail proximally and then distally, put a distal screw in the static hole from the medial side after getting perfect circles on the x-ray. I then irrigated thoroughly the knee. I closed the patellar tendon with #1 Vicryl in a running stitch, peritenon in [id number] with 2-0 Vicryl. Smooth Mccurdy, certified surgical services manager, then closed the other sites, the poke holes for the screws with 2-0 Vicryl in inverted interrupted fashion and the knee with 2-0 Vicryl in inverted interrupted fashion, put on a ZipLine on the distal wound with a 4-0 Monocryl in a horizontal mattress fashion. She was then dressed with soft dressings and covered in Yonny wrap, awakened and taken to recovery in stable condition. BLOOD LOSS: 100 mL. COMPLICATIONS: None. TRANSINT:[id number] Voice Confirmation ID: [id number] DOCUMENT ID: [id number] OPERATIVE REPORT [id number] MENA EASLEY MICHAEL D, DO at 0904 CC: [id number] DICTATION DATE: 04/25/21 1246 STATISTICAL METHODS TEACHER: 04/25/21 2201 ADM IN [facility] [address] [place] [address]
--- NOTE | 2021-04-26 09:30 | NUR ---
ATE ABOUT HALF OF BREAKFAST. STATED SHE WAS FULL. TOOK AM MEDS WITHOUT DIFFICULTY. DENIES NEEDS. DAUGHTERA T BEDSIDE. EXPLAINED WHAT THE PUREWICK IS AND HOW IT WORKS.
[2021-04-26 11:59] VITALS: BP 111/45
[2021-04-26 14:39] LABS: BILIRUBIN NEGATIVE (NEGATIVE); KETONE SMALL mg/dL (NEGATIVE); NITRITE NEGATIVE (NEGATIVE); UROBILINOGEN NORMAL mg/dL (< 2)
[2021-04-26 17:46] VITALS: BP 115/40
--- NOTE | 2021-04-26 18:48 | NUR ---
RESTING QUIETLY IN BED. DENIES NEEDS. NO CHANGES NOTED.
--- NOTE | 2021-04-26 19:22 | NUR ---
PATIENT RESTING IN BED WITH NO S/S OF DISTRESS AND DENIES NEEDS AT THIS TIME. BED IN LOWEST POSITION AND CALL LIGHT IN REACH. ENCOURAGED TO CALL WITH NEEDS.
[2021-04-26 20:00] VITALS: BP 106/39
--- NOTE | 2021-04-26 20:33 | NUR ---
ADMINISTERED MEDS PER ORDERS. PATIENT JOHNNY WELL. ENCOURAGED TO CALL WITH NEEDS.
[2021-04-27 05:06] VITALS: BP 138/54
[2021-04-27 07:28] LABS: BASOPHILS 0.2 % (0-2); EOSINOPHILS 0.1 % (0-7); HEMATOCRIT 22.7 % (36.0-48.0); HEMOGLOBIN 7.6 g/dL (12-16); LYMPHOCYTES 12.7 % (15-50); MCH 31.8 pg (26.0-34.0); MCHC 33.5 g/dL (31.0-37.0); MEAN PLATELET VOLUME 9.4 fL (7.4-10.4); MONOCYTES 20.7 % (2-11); NEUTROPHILS 66.3 % (40-80); PLATELET COUNT 160 10x3/uL (130-400); RBC 2.39 10x6/uL (4.00-5.40); RDW 16.3 % (11.5-14.5); WBC 6.2 10x3/uL (4.8-10.8)
[2021-04-27 07:36] LABS: ALBUMIN 2.4 g/dL (3.4-5.0); ALKALINE PHOSPHATASE 112 U/L (30-120); ALT (SGPT) 10 U/L (10-68); BILIRUBIN - TOTAL 0.38 mg/dL (0.2-1.3); CALC OSMOLALITY 274 mosm/kg (275-300); CALCIUM 8.1 mg/dL (8.5-10.1); CHLORIDE - SERUM 104 mmol/L (98-107); CREATININE - SERUM 0.7 mg/dL (0.6-1.3); GLUCOSE 100 mg/dL (74-106); MAGNESIUM - SERUM 1.9 mg/dL (1.8-2.4); PROTEIN - SERUM 5.3 g/dL (6.4-8.2); SODIUM 138 mmol/L (136-145); UREA NITROGEN 11 mg/dL (7-18); eGFR NON AFRICAN AMERICAN 84 mL/min (90-120)
[2021-04-27 07:46] LABS: CARBON DIOXIDE 31.2 mmol/L (21.0-32.0); POTASSIUM - SERUM 3.1 mmol/L (3.5-5.1)
--- NOTE | 2021-04-27 08:08 | NUR ---
AWAKE AND ALERT. ORIENTED X3. UP TO BSC WITH ONE PERSON MOD ASSIST. VOIDED 250CC CLEAR YELLOW URINE. SKIN CARE PER SELF. SKIN IS INTACT WITHOUT REDNESS EXCEPT INCISION TO LEFT LEG WHICH HAS A DRY INTACT DRESSING IN PLACE. IV TO RIGHT AC IS PATENT WITHOUT REDNESS AT INSERTION SITE. DENIES NEEDS.
--- NOTE | 2021-04-27 09:00 | NUR ---
ATE MOST OF BREAKFAST. TOOK AM MEDS WITHOUT DIFFICULTY INCLUDING A 50MG ULTRAM FOR PAIN LEVEL 7. WILL MONITOR.
[2021-04-27 09:11] VITALS: BP 102/36
--- NOTE | 2021-04-27 11:25 | NUR ---
TRANSFUSION INITIATED AT THIS TIME. VSS. DAUGHTER AT BEDSIDE.
--- NOTE | 2021-04-27 11:40 | NUR ---
TRANSFUSION CONTINUES WITHOUT COMPLICATIONS. VSS.
[2021-04-27 12:51] VITALS: BP 135/47
--- NOTE | 2021-04-27 14:00 | NUR ---
TRANSFUSION CONTINUES WITHOUT COMPLICATIONS. VSS. DAUGHTER T BEDSIDE.
--- NOTE | 2021-04-27 15:00 | NUR ---
TRANSFUSION COMPLETED WITHOUT SIGNS OF REACTIONS. VSS.
[2021-04-27 16:32] VITALS: BP 125/50
--- NOTE | 2021-04-27 17:30 | NUR ---
JOSAFAT SERVED IN ROOM. C/O NAUSEA AT THIS TIME. GIVEN 4MG ZOFRAN SLOW IVP FOR SAME. WILL MONITOR.
--- NOTE | 2021-04-27 18:00 | NUR ---
IV SITED TO LEFT HAND AFTER 2 ATTEMPTS WITH 22. TOLERATED WELL. DENIES NEEDS. NO CHANGES NOTED.
[2021-04-27 22:06] VITALS: BP 136/59
[2021-04-28 05:41] LABS: BASOPHILS 0.1 % (0-2); EOSINOPHILS 0.1 % (0-7); MCH 32.1 pg (26.0-34.0); MCHC 34.2 g/dL (31.0-37.0); MCV 93.8 fL (80.0-100.0); MEAN PLATELET VOLUME 9.1 fL (7.4-10.4); MONOCYTES 18.1 % (2-11); NEUTROPHILS 72.7 % (40-80); PLATELET COUNT 177 10x3/uL (130-400); RDW 16.4 % (11.5-14.5); WBC 6.3 10x3/uL (4.8-10.8)
[2021-04-28 05:55] LABS: HEMOGLOBIN 9.6 g/dL (12-16); RBC 2.99 10x6/uL (4.00-5.40)
[2021-04-28 06:01] LABS: ALBUMIN 2.4 g/dL (3.4-5.0); ALKALINE PHOSPHATASE 108 U/L (30-120); ALT (SGPT) 11 U/L (10-68); BILIRUBIN - TOTAL 0.52 mg/dL (0.2-1.3); CALCIUM 7.9 mg/dL (8.5-10.1); CARBON DIOXIDE 29.7 mmol/L (21.0-32.0); CHLORIDE - SERUM 105 mmol/L (98-107); CREATININE - SERUM 0.7 mg/dL (0.6-1.3); GLUCOSE 104 mg/dL (74-106); MAGNESIUM - SERUM 1.8 mg/dL (1.8-2.4); PROTEIN - SERUM 5.3 g/dL (6.4-8.2); SODIUM 140 mmol/L (136-145); eGFR NON AFRICAN AMERICAN 84 mL/min (90-120)
[2021-04-28 06:04] LABS: CALC OSMOLALITY 276 mosm/kg (275-300); POTASSIUM - SERUM 3.8 mmol/L (3.5-5.1); UREA NITROGEN 7 mg/dL (7-18)
--- NOTE | 2021-04-28 07:30 | NUR ---
PT SAT UP IN BED. CO OF PAIN AND NAUSEA. THESE WILL BE TREATED PER EMAR. CL IN REACH. BED ALARM ON. WCTM
[2021-04-28 08:00] LABS: INR 1.28 (0.85-1.17); PROTIME 14.9 SECONDS (11.6-15.0)
[2021-04-28 08:21] VITALS: BP 112/57
--- NOTE | 2021-04-28 09:08 | NUR ---
PT IS POD#3 TODAY, I WILL WORK ON HER SCREEN LATER THIS MORNING, IF SHE MEETS CRITERIA, AND IS WANTING TO COME, WE MAY BE ABLE TO TAKE LATER THIS AFTERNOON. PARTHA MORENO RN CLINICAL LIAISON, INPATIENT REHAB.
--- NOTE | 2021-04-28 11:11 | NUR ---
PT SLEEPING. NO NEEDS AT THIS TIME. WCTM
[2021-04-28] MEDS ORDERED: ASPIRIN81 MG PO (11:30)
[2021-04-28] MEDS ORDERED: Xopenex 0.63 MG INH UPD (11:30)
[2021-04-28 12:11] VITALS: BP 129/68
[2021-04-28] MEDS ORDERED: FERRLECIT62.5 MG/2 IVPB (12:42)
--- NOTE | 2021-04-28 15:13 | NUR ---
REPORT CALLED DOWN TO [facility]ACK. SPOKE WITH JENNIFER THE DAUGHTER ABOUT THE TRANSFER TO ROOM 1108. IV THERAPY STILL INTACT BECAUSE OF FURTHER IRON TREATMENTS. I PACKED PT UP AND ALL BELONGINGS WERE WITH PT.
== END 2021-04-28 15:14 | DRG 493 ==
LOC: D.ER 18:56 → D.MS 21:59
PROVIDERS: Emergency Medicine; Orthopaedic Surgery; ADMIT Family Medicine; ATTEND Family Medicine
PROC: 0QSH04Z Reposition Left Tibia with Internal Fixation Device, Open Approach (ICD-10-PCS; principal; 2021-04-25 09:15)
DX: S82.202A Unspecified fracture of shaft of left tibia, initial encounter for closed fracture (principal); N17.9 Acute kidney failure, unspecified; I13.0 Hypertensive heart and chronic kidney disease with heart failure and stage 1 through stage 4 chronic kidney disease, or unspecified chronic kidney disease; W19.XXXA Unspecified fall, initial encounter; J44.9 Chronic obstructive pulmonary disease, unspecified; E11.22 Type 2 diabetes mellitus with diabetic chronic kidney disease; N18.9 Chronic kidney disease, unspecified; I50.9 Heart failure, unspecified; I25.10 Atherosclerotic heart disease of native coronary artery without angina pectoris; F32.9 Major depressive disorder, single episode, unspecified; K21.9 Gastro-esophageal reflux disease without esophagitis; E78.5 Hyperlipidemia, unspecified; D63.1 Anemia in chronic kidney disease; I48.0 Paroxysmal atrial fibrillation; M19.90 Unspecified osteoarthritis, unspecified site; E03.9 Hypothyroidism, unspecified; I48.91 Unspecified atrial fibrillation

== ENCOUNTER 2021-04-28 14:31 | Inpatient (IN) | payer MEDICARE, BC ==
[~2021-04-28] VITALS: Ht 154.9 cm; Wt 63.5 kg
[~2021-04-28 14:31] MED LIST changes: +ASPIRIN81 MG PO; +FERRLECIT62.5 MG/2 IVPB; +Xopenex 0.63 MG INH UPD
[2021-04-28 17:21] VITALS: BP 152/68; BMI 26.5
--- NOTE | 2021-04-28 18:50 | NUR ---
BEDSIDE REPORT COMPLETE. RECEIVED PT LYING IN BED SUPINE EYES CLOSED RESTING. EASILY AROUSED WITH VERBAL STIMULI. DENIES ANY NEEDS OR PAIN. NO DISTRESS NOTED. CONTINUES ON 2.5L/O2 VIA NC. LEFT HAND SL WITHOUT REDNESS OR SIGNS OF INFILTRATION. DRESSING AND SWAB CAP INTACT. LEFT LE SOFT CAST INTACT WITH JESSICA WRAP. CALL LIGHT AND WATER WITHIN REACH. FALL PRECAUTIONS IN PLACE. CPOC
[2021-04-28 20:30] VITALS: BP 145/69
--- NOTE | 2021-04-28 21:45 | NUR ---
PT REFUSED HS MEDS D/T BEING NAUSEATED.
--- NOTE | 2021-04-29 00:43 | NUR ---
PT LYING IN BED EYES CLOSED RESTING. RR EVEN AND UNLABORED. PHILIPPE ALARM ON
--- NOTE | 2021-04-29 02:43 | NUR ---
PT CALLED REQUESTING RESTROOM ASSIST. PT REFUSED TO GO TO RESTROOM AND ONLY WANTED TO USE BEDPAN. EDUCATED PT ON IMPORTANCE OF AMBULATING TO RESTROOM AND THAT SHE WAS ON REHAB TO REGAIN STRENGTH. PT STILL REFUSED. PT WAS INCONTINENT TO BLADDER. MED FORMED BM IN BEDPAN. NO OTHER NEEDS VOICED.
[2021-04-29 05:15] LABS: BASOPHILS 0.3 % (0-2); EOSINOPHILS 0.1 % (0-7); HEMATOCRIT 28.9 % (36.0-48.0); HEMOGLOBIN 9.6 g/dL (12-16); LYMPHOCYTES 9.9 % (15-50); MCH 31.3 pg (26.0-34.0); MCHC 33.2 g/dL (31.0-37.0); MCV 94.3 fL (80.0-100.0); MEAN PLATELET VOLUME 8.6 fL (7.4-10.4); MONOCYTES 12.2 % (2-11); NEUTROPHILS 77.5 % (40-80); PLATELET COUNT 201 10x3/uL (130-400); RBC 3.07 10x6/uL (4.00-5.40); RDW 16.1 % (11.5-14.5); WBC 7.2 10x3/uL (4.8-10.8)
[2021-04-29 05:32] LABS: CALC OSMOLALITY 274 mosm/kg (275-300); CALCIUM 8.2 mg/dL (8.5-10.1); CARBON DIOXIDE 30.5 mmol/L (21.0-32.0); CHLORIDE - SERUM 104 mmol/L (98-107); CREATININE - SERUM 0.7 mg/dL (0.6-1.3); GLUCOSE 86 mg/dL (74-106); POTASSIUM - SERUM 3.7 mmol/L (3.5-5.1); SODIUM 140 mmol/L (136-145); UREA NITROGEN 5 mg/dL (7-18); eGFR NON AFRICAN AMERICAN 84 mL/min (90-120)
--- NOTE | 2021-04-29 05:44 | NUR ---
PT LYING IN BED PARTICIPATING IN PHYSICAL THERAPY WITH MYRTLE. ADMININSTERED EARLY AM MEDS WITHOUT DIFFICULTY. PT DENIES ANY NAUSEA THIS AM. DENIES ANY PAIN. NO ACUTE CHANGES IN CONDITION THIS SHIFT. CONTINUES ON O2/2.5L VIA NC
--- NOTE | 2021-04-29 08:07 | NUR ---
SHE IS C/O NAUSEA, SHE IS TRYING TO VOMIT, BUT NOTHING WILL COME UP. REED GIVEN, DOES NOT WANT TO TAKE HER MEDICATIONS NOW. SHE IS WEARING 2.5 L NC. SHE IS INCONTINENT AT TIMES, SHE GOT INTO THE WHEELCHAIR TO GO INT OTHE BATHROOM.
[2021-04-29 08:40] VITALS: BP 140/62
[2021-04-29 08:49] LABS: INR 1.23 (0.85-1.17); PROTIME 14.4 SECONDS (11.6-15.0)
[2021-04-29 14:01] VITALS: Ht 154.9 cm; Wt 63.5 kg
--- NOTE | 2021-04-29 18:50 | NUR ---
BEDSIDE REPORT COMPLETE. RECEIVED. PT LYING IN BED AWAKE, CONFUSED ONLY ALERT TO SELF. DENIES ANY PAIN OR NEEDS. NO DISTRESS NOTED. CONTINUES ON 2.5L/O2 VIA NC. LEFT FOREARM IV INFUSING IRON @ 100ML/HR NO SIGNS OF INFILTRATION NOTED. DRESSING INTACT. LLE JESSICA WRAP DRESSING INTACT. CALL LIGHT AND WATER WITHIN REACH. PHILIPPE ALARM ON. CPOC
[2021-04-29 20:25] VITALS: BP 113/46
--- NOTE | 2021-04-30 04:57 | NUR ---
PT LYING IN BED ON RIGHT SIDE EYES CLOSED RESTING. RR EVEN AND UNLABORED. NO ACUTE CHANGES IN CONDITION THIS SHIFT. CALL LIGHT AND WATER WITHIN REACH. PHILIPPE ALARM ON.
[2021-04-30 07:33] LABS: BASOPHILS 0.6 % (0-2); EOSINOPHILS 0.1 % (0-7); HEMATOCRIT 27.7 % (36.0-48.0); HEMOGLOBIN 9.1 g/dL (12-16); MCH 31.1 pg (26.0-34.0); MCV 94.1 fL (80.0-100.0); MEAN PLATELET VOLUME 9.4 fL (7.4-10.4); MONOCYTES 14.2 % (2-11); NEUTROPHILS 70.1 % (40-80); RBC 2.94 10x6/uL (4.00-5.40); RDW 16.3 % (11.5-14.5); WBC 5.6 10x3/uL (4.8-10.8)
[2021-04-30 07:34] LABS: PLATELET COUNT 255 10x3/uL (130-400)
[2021-04-30 07:46] VITALS: BP 97/44
[2021-04-30 08:16] LABS: INR 1.24 (0.85-1.17); PROTIME 14.4 SECONDS (11.6-15.0)
[2021-04-30 08:32] LABS: CALCIUM 8.7 mg/dL (8.5-10.1); CARBON DIOXIDE 33.1 mmol/L (21.0-32.0); POTASSIUM - SERUM 4.1 mmol/L (3.5-5.1)
--- NOTE | 2021-04-30 15:15 | NUR ---
CARE TEAM MEETING: PATIENT ADMITTS TO REHAB FROM ACUTE FLOOR. HER PCP IS DR. SOSA. HER DISCHARGE PLANS ARE TO RETURN TO [facility] WHERE SHE LIVES. PATIENT WILL BE RA AT NEXT MEETING SHE IS NEW TO THE UNIT. WILL CONTINUE TO FOLLOW WITH PATIENT.
--- NOTE | 2021-04-30 20:00 | NUR ---
RESTING IN BED, NO DISTRESS NOTED, BLIND, DENIES PAIN, CONT TO MONITOR
[2021-04-30 20:45] VITALS: BP 123/72
[2021-05-01 07:09] LABS: INR 1.29 (0.85-1.17); PROTIME 14.9 SECONDS (11.6-15.0)
[2021-05-01 08:39] VITALS: BP 134/55
--- NOTE | 2021-05-01 18:50 | NUR ---
BEDSIDE REPORT COMPLETE. RECEIVED PT LYING IN BED ON LEFT SIDE AWAKE. PT IS LEGALLY BLIND ALERT WITH CONFUSION. O2/2L VIA NC. LEFT WRIST IV SL. NO S/S OF INFILTRATION OR INFECTION. DRESSING AND SWAB CAP INTACT. LEFT LE JESSICA WRAP DRESSING C/D/I. DENIES ANY NEEDS OR PAIN. NO DISTRESS NOTED. CALL LIGHT WITHIN REACH. PHILIPPE ALARM ON. CPOC
[2021-05-01 21:24] VITALS: BP 98/34
--- NOTE | 2021-05-02 02:33 | NUR ---
PT LYING IN BED ON RIGHT SIDE EYES CLOSED RESTING. RR EVEN AND UNLABORED. CONTINUES ON O2/2L VIA NC. CALL LIGHT WITHIN REACH. PHILIPPE ALARM ON
[2021-05-02 05:36] LABS: BASOPHILS 0.4 % (0-2); EOSINOPHILS 0.3 % (0-7); HEMOGLOBIN 9.4 g/dL (12-16); LYMPHOCYTES 19.4 % (15-50); MCH 31.9 pg (26.0-34.0); MCHC 33.7 g/dL (31.0-37.0); MCV 94.6 fL (80.0-100.0); MEAN PLATELET VOLUME 8.5 fL (7.4-10.4); NEUTROPHILS 63.9 % (40-80); PLATELET COUNT 223 10x3/uL (130-400); RBC 2.96 10x6/uL (4.00-5.40); WBC 5.4 10x3/uL (4.8-10.8)
[2021-05-02 05:45] LABS: ANION GAP 3.8 mmol/L (8-16); CALCIUM 8.3 mg/dL (8.5-10.1); CARBON DIOXIDE 38.6 mmol/L (21.0-32.0); CREATININE - SERUM 0.9 mg/dL (0.6-1.3)
[2021-05-02 05:46] LABS: INR 1.24 (0.85-1.17); PROTIME 14.5 SECONDS (11.6-15.0)
[2021-05-02 05:52] LABS: POTASSIUM - SERUM 3.4 mmol/L (3.5-5.1)
[2021-05-02 08:00] VITALS: BP 128/53
--- NOTE | 2021-05-02 09:15 | NUR ---
SHE IS SETTING UP IN THE WHEELCHAIR, WORKING WITH PT. SHE TOOK HER MEDICAITONS WITHOUT ANY PROBLEMS. HER LEFT ANKLE IS WRAPPED WITH AN JESSICA, SOME SWELLING, SHE CAN WIGGLE HER TOES.
--- NOTE | 2021-05-02 12:43 | NUR ---
Nutrition Follow-up: Diet: Regular [facility] Soft PO intake: 20% of breakfast meal. She states that her appetite started picking up yesterday. She had eaten ~40% of lunch tray at time of my visit and was still eating. States that she is NOT drinking the Ensure and that she is sick of them on her meal trays. Last BM: 04/29/21 Wt: 140# (04/29/21) Meds noted: coumadin, k-dur, glipizide, linzess, bumex Labs noted: K 3.4(L) Recommendations/Interventions: -Continue Regular diet/PO consistency per TAPPET ADJUSTER recommendations. -Encouraged PO intake. -Will remove oral nutrition supplements per patient request. -Will continue to honor food preferences within diet restrictions. -RD will re-assess 05/06/21.
--- NOTE | 2021-05-02 18:55 | NUR ---
BEDSIDE REPORT COMPLETE. RECEIVED PT LYING IN BED ON LEFT SIDE AWAKE. ALERT AND ORIENTED X3. DENIES ANY NEEDS OR PAIN. NO DISTRESS NOTED. LLE JESSICA WRAP DRESSING INTACT. POD X7. LEFT WRIST IV PATENT NO S/S OF INFILTRATION. DRESSING AND SWAB CAP INTACT. CONTINUES ON 2L VIA NC. CALL LIGHT AND WATER WITHIN REACH. PHILIPPE ALARM ON. CPOC
[2021-05-02 19:55] VITALS: BP 91/38
--- NOTE | 2021-05-03 03:01 | NUR ---
pt lying in bed on left side eyes closed resting. rr even and unlabored. nancy alarm on
[2021-05-03 07:00] VITALS: BP 137/62
[2021-05-03 07:48] LABS: INR 1.15 (0.85-1.17); PROTIME 13.6 SECONDS (11.6-15.0)
--- NOTE | 2021-05-03 08:30 | NUR ---
SHE HAD A LARGE INCONTINENT EPISODE OF URINE, LINEN CHANGED, HER CLOTHES. HER LEFT ANKLE HAS A JESSICA DRESSING INTACT, SHE CAN MOVE HER TOES. SLIGHT SWELLING. THE CALL LIGHT IS WITHIN REACH AND THE WHEELCHAIR ALARM IS ON. SHE IS UP IN THE WHEELCHAIR FOR BREAKFAST.
--- NOTE | 2021-05-03 18:40 | NUR ---
LYING IN BED WITH CALL LIGHT WITHIN REACH. LISTING TO AUDIO BOOK. DENIES NEEDS
--- NOTE | 2021-05-03 18:51 | NUR ---
NEW IV STARTED TO LAC, 22 G.
[2021-05-03 19:00] VITALS: BP 118/52
--- NOTE | 2021-05-04 03:00 | NUR ---
RESTING QUIETLY WITH CALL LIGHT WITHIN REACH.
[2021-05-04 06:53] LABS: INR 1.37 (0.85-1.17); PROTIME 15.6 SECONDS (11.6-15.0)
[2021-05-04 07:00] VITALS: BP 125/60
--- NOTE | 2021-05-04 13:16 | RHP ---
PATIENT: EMMETT OLIVIA MEDICAL RECORD: [id number] ACCOUNT: [id number] LOCATION:[id number] : 35 ADMISSION DATE: 04/28/21 REHABILITATION HISTORY AND PHYSICAL EXAMINATION POST ADMISSION PHYSICIAN EXAMINATION POSTADMISSION PHYSICAL EXAMINATION AND HISTORY AND PHYSICAL ADMITTING DIAGNOSIS: Closed tibial shaft fracture. HISTORY OF PRESENT ILLNESS: The patient is an 86-year-old female patient of Dr. Mariee with a past medical history of COPD and diabetes, congestive heart failure, atrial fib, osteoarthritis, depression, and other things. She was discharged home on 04/22/2021 to [facility]. She presented from the living center after a witnessed ground level fall. She was standing and her leg gave out causing her to fall against a wall. Staff assisted her to the ground. She had edema, ecchymosis, and pain to her lower legs. She was admitted with a closed tibial fracture. She had a normocytic anemia, acute kidney injury, and elevated alkaline phosphatase. During her hospital course, she also had iron replacement and blood transfusion. Her Coumadin was restarted. The patient is on aspirin for DVT prophylaxis. Her INR was subtherapeutic upon admission. Prior to this admission, she was living on her own, was independent with a rolling walker, although she was blind. She has been to mod assist with ADLs, mod assist with ambulation, weightbearing as tolerated to left lower extremity. She is able to walk 6 feet with poor balance. She has had some bleeding from her incision site. She will require intensive therapy in order to get back to her prior level of functioning. She is currently being monitored closely for her lab values, cognition, medication adjustments, and pain control. Noted to have decreased activity tolerance, decreased strength, balance deficit, decreased range of motion, gait disturbance, impaired mobility, dyspnea on exertion, high fall risk, and self-care deficits. These are all barriers to her discharge home at this time. Comorbidities include acute kidney injury, anemia, and falls. PAST MEDICAL HISTORY: Significant for COPD, diabetes, hypertension, coronary artery disease, congestive heart failure, atrial fib, hyperlipidemia, chronic kidney disease, breast cancer, hypothyroidism, osteoarthritis, depression, frequent falls, carotid stenosis, right subclavian artery stenosis, and cranial nerve palsy. PAST SURGICAL HISTORY: Include a carotid endarterectomy. She has had bilateral mastectomy, gallbladder surgery, kyphoplasty. She has had PTCA and stent placement. ALLERGIES: MORPHINE, OXYCODONE, PENICILLIN, NITROFURANTOIN. CURRENT MEDICATIONS: She is on Coumadin, she takes 6 mg on Wednesday, Wednesday, Wednesday, Wednesday, and Wednesday. She is on Flomax 0.4mg daily, isosorbide mononitrate 15 mg daily, spironolactone 25 mg daily, potassium chloride ER 20 mEq daily, Colace 200 mg daily, vitamin D 2000 units daily, Renetta 60 mg daily, aspirin chewable 81 mg daily, glipizide 10 mg daily, Carafate 1 gram t.i.d. and q.a.c. She is on Protonix 40 mg b.i.d., Linzess 145 mcg daily, Synthroid 100 mcg daily, Bumex 1 mg daily, Effexor 75 mg b.i.d., polyethylene glycol 17 grams in 8 ounces of water b.i.d., Neurontin 100 mg at bedtime, Lipitor 40 mg at bedtime, Zofran ODT 4 mg q.6 hours p.r.n., DuoNeb updrafts. She is on a ferric HISTORY AND PHYSICAL [id number] NE,EMMETT A gluconate complex injection. She is on Xopenex 0.63 mg q.2 hours p.r.n., carvedilol 3.125 mg b.i.d. with meals, Ultram 50 mg q.6 hours p.r.n. She is on Nitrostat p.r.n. chest pain, Antivert 12.5 mg b.i.d. dizziness. She is on lactulose 30 mL b.i.d. p.r.n. constipation, and Tylenol as needed. HABITS: No alcohol, tobacco use. FAMILY HISTORY: Noncontributory. SOCIAL HISTORY: The patient hopes to return back to [facility] and get back to her prior level of functioning. REVIEW OF SYSTEMS: GENERAL: She does complain of weakness and fatigue. HEENT: Denies cold, cough, congestion. CARDIOVASCULAR: Denies any chest pain. PHYSICAL EXAMINATION: VITAL SIGNS: Stable and afebrile. GENERAL: Elderly female in no distress. HEENT: Normocephalic and atraumatic. Mucosa moist. NECK: Supple. She is noted to be impaired visually. LUNGS: Clear in upper hart. No wheezes or rales. HEART: Regular rate and rhythm. No murmurs, rubs, or gallops. ABDOMEN: Soft, benign, nondistended. Positive bowel sounds times 4. EXTREMITIES: No clubbing, cyanosis, or edema. Postoperative area looks pretty good. NEUROLOGIC: She has diffuse weakness and once again she is visually impaired. LABORATORY DATA: Her white count 7.2, H&H 9.6 and 28.9 and platelet count is 201. Her INR is still noted to be 1.23. Sodium 140, potassium 3.7, BUN and creatinine 5 and 0.7 and blood sugar is noted to be 86. ASSESSMENT: This is an 86-year-old female patient admitted to rehab with a working diagnosis of closed tibial shaft fracture. The patient potentially make improvements with the following multidisciplinary therapies including to, but not limited to physical, occupational, respiratory, speech, nutritional services, prosthetics and orthotics. Given her complex medical condition and risks for more complications, rehabilitation services cannot be provided at a low level of care such as assisted facility. PLAN: 1. Admit to [facility] for intensive inpatient therapy to include the following disciplines; A. Physical therapy to improve gait, all transfer skills and bed mobility to a modified independent level. B. Occupational therapy to improve activities of daily living. C. Case management to help with discharge planning and placement options. D. Nutrition to assist with nutritional needs. E. Rehabilitation nursing to assist in monitoring the patient's underlying medical conditions and to assist with any type of bowel or bladder management. 2. The patient's current medication and medical care will be continued. 3. She will be placed on standard fall precautions. 4. The patient's estimated length of stay is approximately 7-10 days. 5. We will discuss this patient during care team staff meeting this week. We HISTORY AND PHYSICAL [id number] NEJESSAEMMETT A will watch her INR closely and adjust meds as needed. TRANSINT:[id number] Voice Confirmation ID: [id number] DOCUMENT ID: [id number] JOSE notes whether there has been none or any medical/functional change since admission: - No change since preadmission screen. JOSE attests patient continues to be appropriate for IRF: - Continues to be appropriate. AIME LEBRON MD at 1316 CC: [id number] DICTATION DATE: 04/29/21 1013 WIRE DRAWING SETTER: 04/29/21 1240 ADM IN [place] [id number] [place] [id number]
[2021-05-04 19:00] VITALS: BP 113/48
--- NOTE | 2021-05-05 02:32 | NUR ---
resting quietly with call light withen reach
[2021-05-05 07:46] LABS: BASOPHILS 0.5 % (0-2); EOSINOPHILS 0.2 % (0-7); HEMOGLOBIN 11.2 g/dL (12-16); LYMPHOCYTES 19.7 % (15-50); MCH 31.1 pg (26.0-34.0); MCHC 32.9 g/dL (31.0-37.0); MCV 94.6 fL (80.0-100.0); MEAN PLATELET VOLUME 8.2 fL (7.4-10.4); MONOCYTES 18.1 % (2-11); NEUTROPHILS 61.5 % (40-80); PLATELET COUNT 233 10x3/uL (130-400); RDW 16.1 % (11.5-14.5); WBC 5.8 10x3/uL (4.8-10.8)
--- NOTE | 2021-05-05 07:46 | NUR ---
SHE IS LOOKING FOR HER COFFEE THAT IS NOT THERE. SHE IS WEARING 2 LITERS NC. HER LEFT ANKLE IS WRAPPED IN JESSICA, SLIGHT SWELLING. THE CALL LIGHT IS WITHIN REACH AND THE BED ALARM IS ON.
[2021-05-05 07:53] LABS: INR 1.36 (0.85-1.17); PROTIME 15.6 SECONDS (11.6-15.0)
[2021-05-05 07:55] LABS: ANION GAP 5.9 mmol/L (8-16); CALCIUM 9.1 mg/dL (8.5-10.1); CARBON DIOXIDE 39.5 mmol/L (21.0-32.0); CREATININE - SERUM 1.1 mg/dL (0.6-1.3); POTASSIUM - SERUM 3.4 mmol/L (3.5-5.1)
[2021-05-05 08:22] VITALS: BP 137/56
--- NOTE | 2021-05-05 18:50 | NUR ---
BEDSIDE REPORT COMPLETE. RECEIVED PT LYING IN BED ON LEFT SIDE EYES CLOSED RESTING. RR EVEN AND UNLABORED. EASILY AROUSED WITH VERBAL STIMULI. DENIES ANY NEEDS OR PAIN. NO DISTRESS NOTED. LEFT AC SL PATENT. DRESSING AND SWAB CAP INTACT. LLE DRESSING INTACT. CALL LIGHT AND WATER WITHIN REACH. PHILIPPE ALARM ON. CPOC
[2021-05-05 20:51] VITALS: BP 95/43
--- NOTE | 2021-05-06 02:54 | NUR ---
PT LYING IN BED ON RIGHT SIDE EYES CLOSED RESTING. RR EVEN AND UNLABORED. CONTINUES ON O2/2L VIA NC. CALL LIGHT AND WATER WITHIN REACH. PHILIPPE ALARM ON
[2021-05-06 07:11] LABS: INR 1.25 (0.85-1.17); PROTIME 14.5 SECONDS (11.6-15.0)
[2021-05-06 08:23] VITALS: BP 110/41
--- NOTE | 2021-05-06 15:27 | NUR ---
Nutrition Re-Assessment [facility] with thin Liquids PO intake: ~25% average x last 9 meals. She feels that her appetite is improving, although she does seem somewhat confused today. States that she does not like and does NOT drink the Ensure Enlive. She is willing to try Ensure Clear. She requested jello at time of my visit. Last BM: 04/29/21 Wt: 140# (04/29/21) Meds noted: coumadin, k-dur, glipizide, linzess, bumex, miralax Labs noted: K 3.4(L) Estimated nutrition needs: 1200-1425cal (25-30kcal/kg IBW), 53-62gms protein (1.1-1.3gms/kg), 1600-1900mL fluid (or per MD) Nutrition diagnosis: Inadequate energy intake r/t inadequate oral intake AEB PO intake <65% average. Nutrition goals: -PO intake will increase to >65% average -Meet fluid needs without fluid overload -Dry weight stable Recommendations/Interventions: -Recommend continue current diet/or per MEDICAID COLLECTION SPECIALIST recommendations. -Will change Ensure Enlive to Ensure Clear. -Encourage PO intake and encouraged intake of high protein foods. -Recommend increase in bowel regimen to promote BM regularity and hopefully help increase appetite. -MD may consider adding an appetite stimulant as medically feasible. -RD will follow-up 05/09/21.
--- NOTE | 2021-05-06 18:50 | NUR ---
BEDSIDE REPORT COMPLETE. RECEIVED PT LYING IN BED EYES CLOSED RESTING. EASILY AROUSED WITH VERBAL STIMULI. ALERT AND ORIENTED X3. DENIES ANY NEEDS OR PAIN. CONTINUES ON O2/2L VIA NC. LEFT AC IV SL PATENT. DRESSING AND SWAB CAP INTACT. LLE DRESSING INTACT. CALL LIGHT AND WATER WITHIN REACH. PHILIPPE ALARM ON. CPOC
[2021-05-06 22:01] VITALS: BP 100/36
--- NOTE | 2021-05-07 02:15 | NUR ---
PT LYING IN BED ON LEFT SIDE EYES CLOSED SLEEPING. RR EVEN AND UNLABORED. CONTINUES ON O2/2L VIA NC. PHILIPPE ALARM ON
--- NOTE | 2021-05-07 05:31 | NUR ---
PT LYING IN BED RIGHT SIDE EYES CLOSED RESTING. RR EVEN AND UNLABORED. NO ACUTE CHANGES IN CONDITION THIS SHIFT. CONTINUES ON O2/2L VIA NC. PHILIPPE ALARM ON
[2021-05-07 07:26] LABS: BASOPHILS 0.2 % (0-2); EOSINOPHILS 0.3 % (0-7); HEMATOCRIT 31.9 % (36.0-48.0); HEMOGLOBIN 10.6 g/dL (12-16); LYMPHOCYTES 19.8 % (15-50); MCH 31.5 pg (26.0-34.0); MCHC 33.3 g/dL (31.0-37.0); MCV 94.6 fL (80.0-100.0); MEAN PLATELET VOLUME 8.8 fL (7.4-10.4); MONOCYTES 18.9 % (2-11); NEUTROPHILS 60.8 % (40-80); RBC 3.37 10x6/uL (4.00-5.40); RDW 15.9 % (11.5-14.5); WBC 5.8 10x3/uL (4.8-10.8)
[2021-05-07 07:36] LABS: PLATELET COUNT 185 10x3/uL (130-400)
[2021-05-07 07:44] LABS: INR 1.23 (0.85-1.17); PROTIME 14.4 SECONDS (11.6-15.0)
[2021-05-07 07:49] LABS: ANION GAP 8.9 mmol/L (8-16); CALCIUM 8.8 mg/dL (8.5-10.1); CARBON DIOXIDE 35.3 mmol/L (21.0-32.0); POTASSIUM - SERUM 3.2 mmol/L (3.5-5.1)
[2021-05-07 08:06] VITALS: BP 104/53
--- NOTE | 2021-05-07 08:32 | NUR ---
SHE IS SETTING UP IN THE WHEELCHAIR FOR BREAKFAST. SHE IS WEARING 2 LITERS NC. I CHANGED THE DRESSING TO THE LEFT LOWER LEG, IT IS BRUISED FROM KNEE TO TOES. SHE HAS THE ZIP TIES TO 2 AREAS BELOW THE KNEE, NEW DRESSING APPLIED. THE CALL LIGHT IS WITHIN REACH AND THE CHAIR ALARM IS ON.
--- NOTE | 2021-05-07 14:45 | NUR ---
CARE TEAM MEETING: PATIENT FAMILY ATTENDED THE MEETING. AT TIME OF DISCHARGE THEY WOULD LIKE A REFERRAL TO [facility]. REFERRAL HAS BEEN FAXED. WILL CONTINUE TO FOLLOW WITH PATIENT. TENATIVE DISCHARGE DATE IS 05/09/21.
--- NOTE | 2021-05-07 20:10 | NUR ---
RESTING IN BED, NO DISTRESS NOTED, BLIND, CONT TO MONITOR SAFETY, O2 UT NC
[2021-05-08 06:20] LABS: INR 1.09 (0.85-1.17); PROTIME 13.1 SECONDS (11.6-15.0)
--- NOTE | 2021-05-08 07:45 | NUR ---
PT RESTING IN BED WITH EYES OPEN CALL LIGHT IN REACH WILL MONITER
[2021-05-08 08:09] VITALS: BP 131/53
--- NOTE | 2021-05-08 12:00 | NUR ---
I have reviewed this patient and I concur with the Shift Assessment completed by the Licensed Practical Nurse today this shift.
--- NOTE | 2021-05-08 14:45 | NUR ---
PATIENT HAS BEEN ACCPETED TO [facility] AND WILL DISCHARGE THERE IN THE AM 05/09/21. FAMILY HAS BEEN NOTIFIED . WILL CONTINUE TO FOLLOW WITH PATIENT UNTIL DISCHARGED.
--- NOTE | 2021-05-08 17:21 | NUR ---
PT RESTING IN BED WITH EYES OPEN CALL LIGHT IN REACH NO PROBLEMS WILL MONITER
--- NOTE | 2021-05-08 19:13 | NUR ---
PM ROUNDS MADE, PT RESTING WITH EYES CLOSED, RESP QUIET, NO DISTRESS NOTED, LEFT UNDISTURBED AT THIS TIME, FALL PRECAUTIONS IN PLACE
--- NOTE | 2021-05-08 20:52 | NUR ---
ASSESSMENT PER FLOW SHEET, PT REPORTS FLATUS, DENIES BM TODAY, AND HAS SOME INCONTINENCE AT TIME, DRESSING TO LEFT LEG CDI WITH NO DRAINAGE NOTED, [employer] TO RIGHT SIDE OF NECK, PT DENIES NEEDS OR PAIN AT THIS TIME, FALL PRECAUTIONS IN PLACE
[2021-05-08 22:00] VITALS: BP 107/49
--- NOTE | 2021-05-08 22:30 | NUR ---
PT RESTING WITH EYES CLOSED, RESP QUIET, NO DISTRESS NOTED, LEFT UNDISTURBED AT THIS TIME, FALL PRECAUTIONS IN PLACE
--- NOTE | 2021-05-09 | NUR ---
PT RESTING WITH EYES CLOSED, RESP QUIET, NO DISTRESS NOTED, LEFT UNDISTURBED AT THIS TIME, FALL PRECAUTIONS IN PLACE
--- NOTE | 2021-05-09 02:18 | NUR ---
PT RESTING WITH EYES CLOSED, RESP QUIET, NO DISTRESS NOTED, LEFT UNDISTURBED AT THIS TIME, FALL PRECAUTIONS IN PLACE
--- NOTE | 2021-05-09 04:00 | NUR ---
PT RESTING WITH EYES CLOSED, RESP QUIET, NO DISTRESS NOTED, LEFT UNDISTURBED AT THIS TIME
[2021-05-09 07:23] LABS: BASOPHILS 0.5 % (0-2); EOSINOPHILS 0.3 % (0-7); HEMOGLOBIN 10.9 g/dL (12-16); LYMPHOCYTES 19.6 % (15-50); MCH 32.2 pg (26.0-34.0); MCHC 34.2 g/dL (31.0-37.0); MCV 94.2 fL (80.0-100.0); MEAN PLATELET VOLUME 8.5 fL (7.4-10.4); MONOCYTES 18.4 % (2-11); NEUTROPHILS 61.2 % (40-80); PLATELET COUNT 157 10x3/uL (130-400); RBC 3.39 10x6/uL (4.00-5.40); RDW 15.9 % (11.5-14.5); WBC 5.1 10x3/uL (4.8-10.8)
--- NOTE | 2021-05-09 07:33 | NUR ---
PT RESTING IN BED WITH EYES OPEN CALL LIGHT IN REACH WILL MONITER
[2021-05-09 07:56] LABS: CALCIUM 9.3 mg/dL (8.5-10.1); CARBON DIOXIDE 36.7 mmol/L (21.0-32.0); CREATININE - SERUM 1.1 mg/dL (0.6-1.3); POTASSIUM - SERUM 3.7 mmol/L (3.5-5.1)
[2021-05-09 08:00] VITALS: BP 117/48
[2021-05-09 08:10] LABS: INR 1.19 (0.85-1.17)
--- NOTE | 2021-05-09 10:12 | NUR ---
PATIENT DISCHARGING TO [facility] VIA FACILITY VAN. NO HOME HEALTH OR DME NEEDED AT THIS TIME. APPOINTMENTS WITH DR. COPPOLA AND DR. SOSA WILL BE MADE AT TIME OF DSICHARGE FROM FACILITY. MESSI SIGNED, IMM SERVED AND EXPLAINED WITH DAUGHTER. NO COMPARE DATA REVIEWED DAUGHTER CHOSE [facility]. DISCHARGE INSTRUCTIONS HAS BEEN FAXED TO PCP, SNF AND REPORT CALLED TO FACILITY.
[2021-05-09] MEDS ORDERED: K-DUR20 MEQ PO (11:50)
--- NOTE | 2021-05-09 13:00 | NUR ---
PT DISCHARGED TO [facility] WITH [employer] JUDGE REPORT CALLED PT TOLERATED WELL
== END 2021-05-09 15:23 | DRG 560 ==
LOC: D.REHAB 14:31
PROVIDERS: ADMIT Emergency Medicine; ATTEND Emergency Medicine
DX: S82.202D Unspecified fracture of shaft of left tibia, subsequent encounter for closed fracture with routine healing (principal); I13.0 Hypertensive heart and chronic kidney disease with heart failure and stage 1 through stage 4 chronic kidney disease, or unspecified chronic kidney disease; N17.9 Acute kidney failure, unspecified; W19.XXXD Unspecified fall, subsequent encounter; E11.22 Type 2 diabetes mellitus with diabetic chronic kidney disease; N18.9 Chronic kidney disease, unspecified; I50.9 Heart failure, unspecified; D64.9 Anemia, unspecified; J44.9 Chronic obstructive pulmonary disease, unspecified; I25.10 Atherosclerotic heart disease of native coronary artery without angina pectoris; I48.91 Unspecified atrial fibrillation; E78.5 Hyperlipidemia, unspecified; E03.9 Hypothyroidism, unspecified; M19.90 Unspecified osteoarthritis, unspecified site; F32.9 Major depressive disorder, single episode, unspecified; K21.9 Gastro-esophageal reflux disease without esophagitis; Z85.3 Personal history of malignant neoplasm of breast